=== PATIENT | female | born 1940 | race Caucasian/White ===

== ENCOUNTER → 2016-11-23 | Outpatient (CLI) | payer MEDICARE, OTHER ==
[~2016-11-23] MED LIST: ALBUTEROL INHALER INH; AMBI5TAB OR; ARIM1TAB4 PO; ARIMIDEX PO; ASPI81TA45 OR; BACL10TA2 OR; BACT2OIN2 TOP; CALCTAB68 PO; CARB10TAXR OR; CELE100C OR; CELE100C PO; COGE1INJ PO; DEPA250T2 OR; DEPA500T2 PO; ENAB7.5T PO; ENABLEX PO; MULTIVIT; ONETAB35 PO; REST0.05 OU; RISP0.5T3 PO; RISP3TAB16 OR; SIMV20TA2 PO; SIMV40TA2 OR; SYNT50TA OR; SYNT50TA PO; TRAZ50TA OR; TYLE325T5 PO; ZOCO40TA OR; lotrimin TOP; restasis OU
--- NOTE | 2016-11-23 13:33 | REPMRS ---
Patient History The patient states she has not had a clinical breast exam in over a year. Patient is postmenopausal and has history of breast cancer at age 66. Family history of breast cancer in sister at age 50 or over. Radiation therapy of the left breast, 2006. Digital Mammo Screening Bilat: November 23, 2016 - Exam #: [id number] Bilateral CC and MLO view(s) were taken. Technologist: Anna Kingsley, Technologist Prior study comparison: November 18, 2015, bilateral digital mammo screening bilat performed at [facility]. November 19, 2014, digital mammo diagnostic bilateral performed at [facility]. November 26, 2013, bilateral digital mammo screening bilat performed at [facility]. FINDINGS: There are scattered fibroglandular densities. There has been no change in the appearance of the mammogram from the prior studies. There are stable post treatment changes in the left breast. There is a mild amount of scattered fibroglandular density which is fairly symmetric. There is no interval development of dominant mass, architectural distortion, or clustered microcalcification suggestive of malignancy. ASSESSMENT: BI-RADS/ACR category 1 mammogram. Negative. Recommendation Routine screening mammogram in 1 year (for women over age 40). This mammogram was interpreted with the aid of an FDA-approved computer-aided dectection system. Electronically Signed By: Hair Purvis MD 11/23/16 [id number]
== END ==
LOC: M RAD 10:26
PROVIDERS: ATTEND Family Medicine
DX: Z12.31 Encounter for screening mammogram for malignant neoplasm of breast (principal)

== ENCOUNTER → 2017-01-17 | Outpatient (REF) | payer MEDICARE, OTHER ==
[2017-01-17 12:15] LABS: MEAN CORPUSCULAR HEMOGLOBIN 31.9 pg (27.0-33.0); MEAN CORPUSCULAR HGB CONC 33.7 g/dl (32.0-36.5); MEAN CORPUSCULAR VOLUME 94.5 fl (80.0-96.0); RED CELL DISTRIBUTION WIDTH 13.1 % (11.5-14.5); WHITE BLOOD COUNT 6.5 K/mm3 (4.0-10.0)
[2017-01-17 12:30] LABS: ALBUMIN 3.1 GM/DL (3.2-5.2); ALBUMIN/GLOBULIN RATIO 0.91 (1.00-1.93); ALKALINE PHOSPHATASE 57 U/L (45-117); ALT/SGPT 30 U/L (12-78); ANION GAP 9 MEQ/L (8-16); AST/SGOT 20 U/L (15-37); BILIRUBIN,TOTAL 0.3 MG/DL (0.2-1.0); BLOOD UREA NITROGEN 13 MG/DL (7-18); CALCIUM LEVEL 8.4 MG/DL (8.8-10.2); CARBON DIOXIDE LEVEL 26 MEQ/L (21-32); CHLORIDE LEVEL 105 MEQ/L (98-107); CHOLESTEROL LEVEL 155 MG/DL (<200); CREATININE FOR GFR 0.68 MG/DL (0.55-1.02); FREE T4 1.25 NG/DL (0.76-1.46); GLOMERULAR FILTRATION RATE > 60.0 (>39); GLUCOSE, FASTING 124 MG/DL (83-110); POTASSIUM SERUM 4.1 MEQ/L (3.5-5.1); SODIUM LEVEL 140 MEQ/L (136-145); TOTAL PROTEIN 6.5 GM/DL (6.4-8.2); TRIGLYCERIDES LEVEL 144 MG/DL (<150)
== END ==
LOC: M LABDRAW1 11:42
PROVIDERS: ATTEND Family Medicine
DX: I67.89 Other cerebrovascular disease (principal); E78.2 Mixed hyperlipidemia; E03.9 Hypothyroidism, unspecified

== ENCOUNTER → 2017-01-25 | Outpatient (REF) | payer MEDICARE, OTHER | LOC: M SFHCADAM 15:38 | PROVIDERS: ATTEND Family Medicine | DX: K52.9 Noninfective gastroenteritis and colitis, unspecified (principal) | CPT/HCPCS: 86256; G0463 ==

== ENCOUNTER → 2017-12-05 | Outpatient (CLI) | payer MEDICARE, OTHER | LOC: M RAD 10:43 | DX: Z12.31 Encounter for screening mammogram for malignant neoplasm of breast (principal) | CPT/HCPCS: 77067 ==

== ENCOUNTER → 2018-07-31 | Outpatient (REF) | payer MEDICARE, OTHER ==
[2018-07-31 10:36] LABS: ANION GAP 8 MEQ/L (8-16); BLOOD UREA NITROGEN 10 MG/DL (7-18); CALCIUM LEVEL 9.3 MG/DL (8.8-10.2); CARBON DIOXIDE LEVEL 28 MEQ/L (21-32); CHLORIDE LEVEL 105 MEQ/L (98-107); CREATININE FOR GFR 0.74 MG/DL (0.55-1.30); GLOMERULAR FILTRATION RATE > 60.0 (>39); GLUCOSE, FASTING 170 MG/DL (70-100); POTASSIUM SERUM 4.2 MEQ/L (3.5-5.1); SODIUM LEVEL 141 MEQ/L (136-145)
[2018-07-31 10:50] LABS: ESTIMATED AVERAGE GLUCOSE 174 MG/DL (60-110); HEMOGLOBIN A1c 7.7 %
== END ==
LOC: M LABDRAW1 09:36
DX: R73.03 Prediabetes (principal)

== ENCOUNTER → 2018-07-31 | Outpatient (REF) | payer MEDICARE, OTHER ==
[2018-07-31 10:49] LABS: ALBUMIN 3.1 GM/DL (3.2-5.2); ALBUMIN/GLOBULIN RATIO 0.84 (1.00-1.93); ALKALINE PHOSPHATASE 57 U/L (45-117); ALT/SGPT 35 U/L (12-78); AST/SGOT 21 U/L (7-37); BILIRUBIN,DIRECT 0.1 MG/DL (0.0-0.2); BILIRUBIN,TOTAL 0.4 MG/DL (0.2-1.0); TOTAL PROTEIN 6.8 GM/DL (6.4-8.2); VALPROIC ACID (DEPAKOTE) 67.5 UG/ML (50.0-100.0)
== END ==
LOC: M LABDRAW1 09:35
DX: Z51.81 Encounter for therapeutic drug level monitoring (principal); Z79.899 Other long term (current) drug therapy; R73.03 Prediabetes
CPT/HCPCS: 80164

== ENCOUNTER → 2018-10-30 | Outpatient (REF) | payer MEDICARE, OTHER ==
[~2018-10-30] MED LIST changes: -ARIM1TAB4 PO; +ARIM1TAB5 PO; +BACT2OIN10 TOP; -BACT2OIN2 TOP
[2018-10-30 14:00] LABS: HEMOGLOBIN A1c 8.5 %
[2018-10-30 14:30] LABS: ALBUMIN 3.2 GM/DL (3.2-5.2); ALT/SGPT 30 U/L (12-78); BILIRUBIN,TOTAL 0.4 MG/DL (0.2-1.0); BLOOD UREA NITROGEN 14 MG/DL (7-18); CALCIUM LEVEL 8.8 MG/DL (8.8-10.2); CARBON DIOXIDE LEVEL 24 MEQ/L (21-32); CHLORIDE LEVEL 105 MEQ/L (98-107); CHOLESTEROL LEVEL 159 MG/DL (<200); CHOLESTEROL RISK RATIO 2.839 (<5); CREATININE FOR GFR 0.72 MG/DL (0.55-1.30); GLOMERULAR FILTRATION RATE > 60.0 (>39); GLUCOSE, FASTING 174 MG/DL (70-100); HDL CHOLESTEROL 56 MG/DL (>40); LDL CHOLESTEROL 73 MG/DL (<100); NON-HDL-C 103 MG/DL; POTASSIUM SERUM 4.6 MEQ/L (3.5-5.1); SODIUM LEVEL 141 MEQ/L (136-145); TOTAL PROTEIN 6.9 GM/DL (6.4-8.2); TRIGLYCERIDES LEVEL 150 MG/DL (<150)
== END ==
LOC: M LABDRAW1 12:48
PROVIDERS: ATTEND Family Medicine
DX: E11.9 Type 2 diabetes mellitus without complications (principal); E78.2 Mixed hyperlipidemia

== ENCOUNTER → 2018-10-31 | Outpatient (REF) | payer MEDICARE, OTHER ==
[2018-10-31 13:37] LABS: CREATININE, URINE 50.8 MG/DL; MALB URINE SIEMENS 6.4 MG/L; MAU/CREAT RATIO 12.5 MCG/MG (0.0-30.0)
== END ==
LOC: M LABDRAW1 08:59
PROVIDERS: ATTEND Family Medicine
DX: E11.9 Type 2 diabetes mellitus without complications (principal); E78.2 Mixed hyperlipidemia

== ENCOUNTER → 2018-11-06 | Outpatient (CLI) | payer MEDICARE, OTHER ==
[~2018-11-06] MED LIST changes: -CARB10TAXR OR; +TEGR100T3 OR
--- NOTE | 2018-11-06 10:53 | REP ---
Clinical: Right knee pain. Technique: AP, lateral, bilateral oblique and sunrise views of the right knee. Findings: Mild age-related degenerative changes include subtle increase sclerosis along the tibial plateau with very small lateral osteophyte and associated minimal tibiofemoral joint space narrowing. No acute fracture dislocation. No effusion. 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 Electronically Signed by Kristopher Ferrer MD 11/06/2018 10:45 A
== END ==
LOC: M ADAMS 10:06
PROVIDERS: ATTEND Family Medicine
DX: M17.11 Unilateral primary osteoarthritis, right knee (principal); M25.761 Osteophyte, right knee; M25.561 Pain in right knee
CPT/HCPCS: 73564; G0463

== ENCOUNTER → 2018-11-27 | Outpatient (REF) | payer MEDICARE, OTHER ==
[~2018-11-27] MED LIST changes: +CARB10TAXR OR; -TEGR100T3 OR
== END ==
LOC: M LAB REF 10:03
PROVIDERS: ATTEND Physician Assistant Medical
DX: R19.7 Diarrhea, unspecified (principal)

== ENCOUNTER → 2018-11-27 | Outpatient (REF) | payer MEDICARE, OTHER ==
[2018-11-27 20:08] LABS: BASO # 0.1 10^3/uL (0.0-0.2); BASO % 0.6 % (0.0-1.0); EOS # 0.1 10^3/uL (0.0-0.50); EOS % 0.8 % (0.0-3.0); HEMATOCRIT 44.9 % (36.0-47.0); HEMOGLOBIN 14.9 g/dl (12.0-15.5); LYMPH # 3.3 10^3/uL (1.5-4.5); LYMPH % 37.4 % (24.0-44.0); MEAN CORPUSCULAR HEMOGLOBIN 31.8 pg (27.0-33.0); MEAN CORPUSCULAR HGB CONC 33.2 g/dl (32.0-36.5); MEAN CORPUSCULAR VOLUME 95.7 fl (80.0-96.0); MONO # 0.8 10^3/uL (0.0-0.8); MONO % 8.9 % (0.0-5.0); NEUTROPHILS # 4.5 10^3/uL (1.8-7.7); NEUTROPHILS % 52.1 % (36.0-66.0); PLATELET COUNT, AUTOMATED 224 10^3/uL (150-450); RED BLOOD COUNT 4.69 10^6/uL (4.00-5.40); WHITE BLOOD COUNT 8.7 10^3/uL (4.0-10.0)
[2018-11-27 20:15] LABS: ALBUMIN 3.6 GM/DL (3.2-5.2); ALT/SGPT 45 U/L (12-78); AMYLASE 87 U/L (25-115); BILIRUBIN,TOTAL 0.4 MG/DL (0.2-1.0); BLOOD UREA NITROGEN 11 MG/DL (7-18); CALCIUM LEVEL 9.8 MG/DL (8.8-10.2); CARBON DIOXIDE LEVEL 29 MEQ/L (21-32); CHLORIDE LEVEL 101 MEQ/L (98-107); CREATININE FOR GFR 0.73 MG/DL (0.55-1.30); GLOMERULAR FILTRATION RATE > 60.0 (>39); GLUCOSE, FASTING 118 MG/DL (70-100); LIPASE 223 U/L (73-393); POTASSIUM SERUM 3.8 MEQ/L (3.5-5.1); SODIUM LEVEL 139 MEQ/L (136-145); TOTAL PROTEIN 7.6 GM/DL (6.4-8.2)
== END ==
LOC: M LAB REF 19:12 → M LABDRWAD 19:12
PROVIDERS: ATTEND Physician Assistant Medical
DX: R19.7 Diarrhea, unspecified (principal)

== ENCOUNTER → 2018-12-12 | Outpatient (CLI) | payer MEDICARE, OTHER ==
[~2018-12-12] MED LIST changes: -CARB10TAXR OR; +TEGR100T3 OR
--- NOTE | 2018-12-12 11:11 | REPMRS ---
Patient History The patient states she has not had a clinical breast exam in over a year. Family history of breast cancer at age 50 or over in sister. Radiation therapy of the left breast, 2007. 3D TOMOSYNTHESIS WAS PERFORMED. Digital Mammo Screening Bilat: December 12, 2018 - Exam #: [id number] Bilateral CC and MLO view(s) were taken. Technologist: Amanda Barroso, Technologist Prior study comparison: December 05, 2017, bilateral digital mammo screening bilat performed at [facility]. November 23, 2016, bilateral digital mammo screening bilat performed at [facility]. FINDINGS: There are scattered fibroglandular densities. There has been no change in the appearance of the mammogram from the prior studies. There is a mild amount of residual fibroglandular tissue which is fairly symmetric. There is no interval development of dominant mass, architectural distortion, or clustered microcalcification suggestive of malignancy. Assessment: BI-RADS/ACR category 1 mammogram. Negative Mammogram. Recommendation Routine screening mammogram in 1 year (for women over age 40). This mammogram was interpreted with the aid of an FDA-approved computer-aided dectection system. Electronically Signed By: Warren Avendano MD 12/12/18 [id number]
== END ==
LOC: M RAD 09:18
PROVIDERS: ATTEND Family Medicine
DX: Z12.31 Encounter for screening mammogram for malignant neoplasm of breast (principal); Z92.3 Personal history of irradiation; Z80.3 Family history of malignant neoplasm of breast

== ENCOUNTER → 2019-01-16 | Outpatient (REF) | payer MEDICARE, OTHER | LOC: M LABDRAW1 11:58 | PROVIDERS: ATTEND Psychiatry & Neurology Psychiatry | DX: Z79.899 Other long term (current) drug therapy (principal) ==

== ENCOUNTER → 2019-01-16 | Outpatient (REF) | payer MEDICARE, OTHER ==
[2019-01-16 13:05] LABS: BLOOD UREA NITROGEN 12 MG/DL (7-18); CALCIUM LEVEL 9.3 MG/DL (8.8-10.2); CARBON DIOXIDE LEVEL 27 MEQ/L (21-32); CHLORIDE LEVEL 106 MEQ/L (98-107); CREATININE FOR GFR 0.76 MG/DL (0.55-1.30); GLOMERULAR FILTRATION RATE > 60.0 (>39); GLUCOSE, FASTING 139 MG/DL (70-100); POTASSIUM SERUM 4.2 MEQ/L (3.5-5.1); SODIUM LEVEL 142 MEQ/L (136-145)
[2019-01-16 15:54] LABS: HEMOGLOBIN A1c 7.3 %
== END ==
LOC: M LABDRAW1 11:57
PROVIDERS: ATTEND Family Medicine
DX: E11.9 Type 2 diabetes mellitus without complications (principal)

== ENCOUNTER → 2019-01-22 | Outpatient (REF) | payer MEDICARE, OTHER ==
[2019-01-22 20:20] LABS: ALBUMIN 3.6 GM/DL (3.2-5.2); ALT/SGPT 36 U/L (12-78); BILIRUBIN,TOTAL 0.4 MG/DL (0.2-1.0); BLOOD UREA NITROGEN 7 MG/DL (7-18); C REACTIVE PROTEIN QUANTITATIV 0.51 MG/DL (0.00-0.30); CALCIUM LEVEL 9.6 MG/DL (8.8-10.2); CARBON DIOXIDE LEVEL 30 MEQ/L (21-32); CHLORIDE LEVEL 103 MEQ/L (98-107); CREATININE FOR GFR 0.66 MG/DL (0.55-1.30); GLOMERULAR FILTRATION RATE > 60.0 (>39); GLUCOSE, FASTING 94 MG/DL (70-100); POTASSIUM SERUM 4.1 MEQ/L (3.5-5.1); SODIUM LEVEL 139 MEQ/L (136-145); TOTAL PROTEIN 8.1 GM/DL (6.4-8.2)
[2019-01-22 20:24] LABS: HEMATOCRIT 47.8 % (36.0-47.0); HEMOGLOBIN 15.5 g/dl (12.0-15.5); MEAN CORPUSCULAR HEMOGLOBIN 31.1 pg (27.0-33.0); MEAN CORPUSCULAR HGB CONC 32.4 g/dl (32.0-36.5); MEAN CORPUSCULAR VOLUME 95.8 fl (80.0-96.0); PLATELET COUNT, AUTOMATED 233 10^3/uL (150-450); RED BLOOD COUNT 4.99 10^6/uL (4.00-5.40); WHITE BLOOD COUNT 7.9 10^3/uL (4.0-10.0)
== END ==
LOC: M SFHCADAM 14:11
PROVIDERS: ATTEND Family Medicine
DX: K52.9 Noninfective gastroenteritis and colitis, unspecified (principal); R63.4 Abnormal weight loss
CPT/HCPCS: 80053; 85027; 86140; 86255; G0463

== ENCOUNTER 2019-02-28 07:01 | Day surgery (SDC) | payer MEDICARE, OTHER ==
[~2019-02-28] VITALS: Ht 165.1 cm; Wt 63.9 kg
[~2019-02-28 07:01] MED LIST changes: +CALCCAP4 PO; +DEPA1TAB3 PO; +LEVO50TA5 PO; +MINO100C80 PO; +NS 1,000 ML IV ONE; +REQU1TAB14 PO
[2019-02-28] MEDS ORDERED: LIDOCAINE 2% INJ 100 MG/5 ML SDV (FOR ANES.) As Ordered ONE (08:36)
[2019-02-28] MEDS ORDERED: PROPOFOL 500 MG/50 ML VIAL As Ordered ONE (08:36)
--- NOTE | 2019-02-28 08:58 | ROOR ---
Patient Name: Hilaria Raymundo Procedure Date: 02/28/2019 8:32 AM Date of : 1940 Age: 78 Room: [facility] Gender: Female Note Status: Finalized Procedure: Colonoscopy Indications: Change in bowel habits, Constipation, Chronic diarrhea Providers: Alexy MITCHELL MD Referring MD: Abner Augustin MD Requesting Provider: Medicines: Monitored Anesthesia Care Complications: No immediate complications. Procedure: Pre-Anesthesia Assessment: - The heart rate, respiratory rate, oxygen saturations, blood pressure, adequacy of pulmonary ventilation, and response to care were monitored throughout the procedure. The Colonoscope was introduced through the anus and advanced to 10 cm into the ileum. The colonoscopy was performed without difficulty. The patient tolerated the procedure well. The quality of the bowel preparation was good. Findings: The perianal exam findings include a perianal fungal rash. A localized area of mucosa in the ileocecal valve was mildly erythematous. This was biopsied with a cold forceps for histology. Multiple medium-mouthed diverticula were found in the sigmoid colon. Small Internal Hemorrhoids. The exam was otherwise without abnormality. Biopsies for histology were taken with a cold forceps for evaluation of microscopic colitis. Impression: - Perianal fungal rash found on perianal exam. - Erythematous mucosa at the last 1-2 cm of TI/ileocecal valve. Biopsied. - Diverticulosis in the sigmoid colon. - Small Internal Hemorrhoids. - The examination was otherwise normal. - Biopsies were taken with a cold forceps for evaluation of microscopic colitis. Recommendation: - Await pathology results. - Telephone endoscopist for pathology results in 2 weeks. - Clotrimazole/betamethasone cream to perianal area bid x 2 weeks - (the script was sent to your pharmacy on file) Alexy Mitchell MD Alexy MITCHELL MD 02/28/2019 8:57:54 AM Electronically signed by Alexy MITCHELL MD Number of Addenda: 0 Note Initiated On: 02/28/2019 8:32 AM Estimated Blood Loss: Estimated blood loss: none.
[2019-02-28 09:41] VITALS: BP 119/69
[2019-02-28] MEDS ORDERED: BUSP5TA PO (13:45)
[2019-02-28] MEDS ORDERED: METF500T4 PO (13:45)
[2019-02-28] MEDS ORDERED: CLOT1CRE71 TOP (13:46)
[2019-02-28] MEDS ORDERED: LEVO75TA4 PO (13:50)
[2019-02-28] MEDS ORDERED: RISP0.5T3 PO (13:50)
== END 2019-02-28 09:40 | disposition home or self-care (01) ==
LOC: M OPP 07:01
PROVIDERS: ATTEND Internal Medicine Gastroenterology
DX: B35.6 Tinea cruris (principal); K63.89 Other specified diseases of intestine; R19.4 Change in bowel habit; K52.9 Noninfective gastroenteritis and colitis, unspecified; K57.30 Diverticulosis of large intestine without perforation or abscess without bleeding; Z79.899 Other long term (current) drug therapy; Z88.8 Allergy status to other drugs, medicaments and biological substances; Z87.891 Personal history of nicotine dependence

== ENCOUNTER 2019-03-02 09:59 | Inpatient (IN) | payer MEDICARE, OTHER ==
[~2019-03-02] VITALS: Ht 152.4 cm; Wt 63.6 kg
[~2019-03-02 09:59] MED LIST changes: +BUSP5TA PO; +CLOT1CRE71 TOP; +LEVO75TA4 PO; +METF500T4 PO; -NS 1,000 ML IV ONE
[2019-03-02] MEDS ORDERED: ANAS1TAB2 PO (10:30)
[2019-03-02] MEDS ORDERED: SYNT50TA PO (10:30)
[2019-03-02] MEDS ORDERED: DIVA500T9 PO (10:30)
[2019-03-02 10:41] LABS: BASO # 0.1 10^3/uL (0.0-0.2); BASO % 0.5 % (0.0-1.0); EOS % 0.1 % (0.0-3.0); HEMATOCRIT 47.4 % (36.0-47.0); HEMOGLOBIN 15.9 g/dl (12.0-15.5); LYMPH # 1.9 10^3/uL (1.5-4.5); LYMPH % 13.5 % (24.0-44.0); MEAN CORPUSCULAR HEMOGLOBIN 31.4 pg (27.0-33.0); MEAN CORPUSCULAR HGB CONC 33.5 g/dl (32.0-36.5); MEAN CORPUSCULAR VOLUME 93.7 fl (80.0-96.0); MONO # 1.5 10^3/uL (0.0-0.8); MONO % 10.8 % (0.0-5.0); NEUTROPHILS # 10.3 10^3/uL (1.8-7.7); NEUTROPHILS % 74.8 % (36.0-66.0); PLATELET COUNT, AUTOMATED 210 10^3/uL (150-450); RED BLOOD COUNT 5.06 10^6/uL (4.00-5.40); WHITE BLOOD COUNT 13.8 10^3/uL (4.0-10.0)
[2019-03-02 11:04] LABS: ALBUMIN 3.1 GM/DL (3.2-5.2); ALT/SGPT 24 U/L (12-78); BILIRUBIN,DIRECT 0.2 MG/DL (0.0-0.2); BILIRUBIN,TOTAL 0.8 MG/DL (0.2-1.0); BLOOD UREA NITROGEN 7 MG/DL (7-18); CALCIUM LEVEL 9.4 MG/DL (8.8-10.2); CARBON DIOXIDE LEVEL 26 MEQ/L (21-32); CHLORIDE LEVEL 102 MEQ/L (98-107); CREATININE FOR GFR 0.67 MG/DL (0.55-1.30); GLOMERULAR FILTRATION RATE > 60.0 (>39); GLUCOSE, FASTING 148 MG/DL (70-100); LIPASE 97 U/L (73-393); POTASSIUM SERUM 3.3 MEQ/L (3.5-5.1); SODIUM LEVEL 137 MEQ/L (136-145); TOTAL PROTEIN 8.7 GM/DL (6.4-8.2)
[2019-03-02 11:25] LABS: CPK CREATINE PHOSPHOKINASE 104 U/L (26-192); MB/CK RELATIVE INDEX 0.96 (< OR =4); TROPONIN I < 0.02 NG/ML (< 0.10)
--- NOTE | 2019-03-02 11:34 | REP ---
Right wrist four views: There is soft tissue edema over the dorsum. There is no fracture or dislocation. No calcifications or foreign bodies. 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 Electronically Signed by Warren Francis MD 03/02/2019 11:26 A
[2019-03-02 11:38] LABS: MAGNESIUM LEVEL 2.2 MG/DL (1.8-2.4); PHOSPHORUS LEVEL 1.9 MG/DL (2.5-4.9)
[2019-03-02] MEDS ORDERED: NS 500 ML IV ONE (11:45)
--- NOTE | 2019-03-02 11:46 | REP ---
A PA and lateral chest: Comparison is 07/14/2011. There is a stable granuloma inferiorly in the right lung. Lung ruiz otherwise clear. Cardiac size is normal. The jeffery, mediastinum, skeletal structures are unremarkable. Impression: No acute cardiopulmonary findings. Stable right lung granuloma. Electronically Signed by Warren Francis MD 03/02/2019 11:37 A
[2019-03-02] MEDS ORDERED: POTASSIUM CHLORIDE 10 MEQ SR TABLET PO ONE (12:00)
[2019-03-02] MEDS ORDERED: GLUCAGON FOR INJ 1 MG VIAL (J1610) SC PRN (15:00)
[2019-03-02] MEDS ORDERED: ONDANSETRON 4MG/2ML VIAL (J2405) IV PRN (15:00)
[2019-03-02] MEDS ORDERED: DEXTROSE 50% 50 ML SYRINGE IV PRN (15:00)
[2019-03-02] MEDS ORDERED: GLUCOSE 4 GM CHEW TABLET PO PRN (15:00)
[2019-03-02 16:00] VITALS: BP 143/76
[2019-03-02] MEDS: HumaLOG INSULIN (NovoLOG) PER UNIT SC SCH ×2 (17:52→21:00)
[2019-03-02] MEDS: DIVALPROEX 500MG *ER* TAB PO SCH (17:53)
[2019-03-02] MEDS: ENOXAPARIN 40 MG/0.4 ML SYRINGE (J1650) SC SCH (17:53)
--- NOTE | 2019-03-02 18:37 | HPEPDOC ---
General Date of Admission Mar 02, 2019 at 14:50 Date of Service: Mar 02, 2019 Primary Care Physician: Abner Augustin MD Chief Complaint The patient is a 78-year-old female admitted with a reason for visit of Diarrhea Hypokalemia Unable To Ambulate. Source: Patient, Family Exam Limitations: Hard of hearing, Mild cognitive slowing Timing/Duration: Week(s) (2 months) Severity: Moderate Associated Symptoms: Weakness History of Present Illness This is a 78-year-old female who is a moderate historian; her daughter is here to assist. She apparently has had diarrhea for 2-1/2 months. It is generally described as loose stools. It is unaccompanied by blood. She's had decreased appetite but no vomiting. She has no changes to her bladder habits. She has been becoming increasingly weak where she is nonambulatory. She sustained a fall in the bathroom at home this week. There was no residual acute injury aside from a sprained left ankle. The patient has not had any treatment meds such as Lomotil or Imodium. She has not been on any antibiotic therapy prior to or to treat the diarrhea. The family is unsure whether she has had any lab testing. The patient did undergo evaluation by colonoscopy this week with no acute findings. Potential exposure includes well water; there is water they obtain from a spring that they go collect in their own containers. Other family members do not have the diarrhea. The family and the patient are also considering metformin as a causative agent as it seems she has had diarrhea since starting on this medication. Home Medications Scheduled Anastrozole (Anastrozole) 1 Mg Tablet, 1 TAB PO DAILY, (Reported) Calcium Carbonate/Vitamin D3 (Calcium 600 + Vit D 400 Softgl) 1 Each Capsule, 1 CAP PO BID, (Reported) Cyclosporine (Restasis) 0.05 % Emu, 1 DROP OU BID, (Reported) Darifenacin Hydrobromide (Enablex) 7.5 Mg Tab, 7.5 MG PO DAILY, (Reported) Divalproex Sodium (Divalproex Sodium ER) 500 Mg Tab.er.24h, 500 MG PO DAILY, (Reported) Folic Acid/Multivit,Iron,[place] (One Daily For Women Tablet) 1 Tab Tab, 1 TAB PO DAILY, (Reported) Levothyroxine Sodium (Synthroid) 50 Mcg Tablet, 50 MCG PO DAILY, (Reported) Metformin HCl (Metformin HCl ER) 500 Mg Tab.er.24h, 1,000 MG PO QPM, (Reported) WITH EVENING MEAL Risperidone (Risperidone) 0.5 Mg Tablet, 0.5 MG PO QHS, (Reported) Simvastatin (Simvastatin) 20 Mg Tab, 20 MG PO QHS, (Reported) Allergies Coded Allergies: tolterodine (Verified Allergy, Unknown, rash, 02/26/19) propoxyphene (Verified Adverse Reaction, Mild, upset stomach, 02/26/19) Past Medical History Medical History Recent diagnosis of sro-dolrqkf-tlepsseyq diabetes mellitus, hypercholes terolemia, hypothyroidism, bipolar disorder, history of breast cancer treated with radiation, stress/urge incontinence Surgical History Skin grafts to forehead, left breast lumpectomy, hysterectomy Family History Patient reports paternal history of cirrhosis, maternal multigenerational history of breast cancer, there is also a brother with colon cancer and heart disease Social History * Smoker: former Smoker, quit greater than 1 year (patient quit smoking prior to 1989) Alcohol: Denies (he last drank alcohol in her 20s) Drugs: denies Recent Travel/Sick Contacts: Denies: Recent travel, Recent sick contacts Psychosocial History: Bipolar The patient is retired. A-FIB/CHADSVASC A-FIB History Current/History of A-Fib/PAF?: No Current PO Anticoag Therapy: No Review of Systems Other systems Review of 10 systems is otherwise negative except as stated in the brief presentation. The patient was an incomplete historian; most of the time she would drift off to another topic rather than answering questions. Physical Examination General Exam: Positive: Cooperative, No Acute Distress Eye Exam: Positive: PERRLA, Conjunctiva & lids normal, EOMI ENT Exam: Positive: Atraumatic, Mucous membr. moist/pink, Pharynx Normal, Tongue Midline, Other ENT (moderately good dentition) Neck Exam: Positive: Supple; Negative: JVD, thyromegaly, +2 carotid pulse wo bruit, Lymphadenopathy, Other Chest Exam: Positive: Clear to auscultation, Normal air movement; Negative: Rales, Rhonchi, Wheezing, Diminished, Other Heart Exam: Positive: Rate Normal, Regular Rhythm Abdomen Exam: Positive: BS Hyperactive, Soft; Negative: BS Hypoactive, Tenderness, Hepatospenomegaly, Mass, Hernia, Other Extremity Exam: Positive: Normal pulses, Swelling (to Left ankle, bruising and swelling to right wrist) Skin Exam: Positive: Nl turgor and temperature Neuro Exam: Positive: Cranial Nerves 3-12 NL Psych Exam: Positive: Other (patient did demonstrate some memory deficit) Vital Signs Vital Signs Date Time Temp Pulse Resp B/P (MAP) Pulse Ox O2 Delivery O2 Flow Rate FiO2 03/02/19 16:00 20 03/02/19 15:30 99.2 82 132/71 (91) 93 03/02/19 10:15 Room Air Laboratory Data Labs 24H Laboratory Tests 2 03/02/19 10:22: Immature Granulocyte % (Auto) 0.3, White Blood Count 13.8H, Red Blood Count 5.06, Hemoglobin 15.9H, Hematocrit 47.4H, Mean Corpuscular Volume 93.7, Mean Corpuscular Hemoglobin 31.4, Mean Corpuscular Hemoglobin Concent 33.5, Red Cell Distribution Width 13.2, Platelet Count 210, Neutrophils (%) (Auto) 74.8H, Lymphocytes (%) (Auto) 13.5L, Monocytes (%) (Auto) 10.8H, Eosinophils (%) (Auto) 0.1, Basophils (%) (Auto) 0.5, Neutrophils # (Auto) 10.3H, Lymphocytes # (Auto) 1.9, Monocytes # (Auto) 1.5H, Eosinophils # (Auto) 0.0, Basophils # (Auto) 0.1, Nucleated Red Blood Cells % (auto) 0.0, Anion Gap 9, Glomerular Filtration Rate > 60.0, Calcium Level 9.4, Phosphorus Level 1.9L, Magnesium Level 2.2, Aspartate Amino Transf (AST/SGOT) 16, Alanine Aminotransferase (ALT/SGPT) 24, Alkaline Phosphatase 68, Total Bilirubin 0.8, Direct Bilirubin 0.2, Total Creatine Kinase 104, Creatine Kinase MB 1.0, Creatine Kinase MB Relative Index 0.96, Troponin I < 0.02, Total Protein 8.7H, Albumin 3.1L, Albumin/Globulin Ratio 0.55L, Lipase 97, Thyroid Stimulating Hormone (TSH) 1.780, Free Thyroxine 1.20 03/02/19 16:06: Bedside Glucose (Misc Panel) 123H CBC/BMP Laboratory Tests 03/02/19 10:22 Red Blood Count 5.06, Mean Corpuscular Volume 93.7, Mean Corpuscular Hemoglobin 31.4, Mean Corpuscular Hemoglobin Concent 33.5, Red Cell Distribution Width 13.2, Neutrophils (%) (Auto) 74.8 H, Lymphocytes (%) (Auto) 13.5 L, Monocytes (%) (Auto) 10.8 H, Eosinophils (%) (Auto) 0.1, Basophils (%) (Auto) 0.5, Neutrophils # (Auto) 10.3 H, Lymphocytes # (Auto) 1.9, Monocytes # (Auto) 1.5 H, Eosinophils # (Auto) 0.0, Basophils # (Auto) 0.1 Problems (1) Diarrhea Status: Acute Plan / VTE VTE Prophylaxis Ordered?: Yes Plan Plan Plans are to give this patient some IV hydration. We will obtain x-ray stool studies as possible as we do not know what has been done: Ova and parasites, culture for salmonella, Campylobacter, Shigella, microsporidia, C. difficile PCR. If her stool studies are negative for C. difficile, we can start making use of agents such as Lomotil or Imodium to decrease her stool frequency. We are holding her metformin as this may be contributory or causative. We will manage her blood sugars with sliding scale insulin instead. Disposition The patient is stable for the [facility] floor. We anticipate her length of stay to be treated into meningitis and so she is inpatient status. Given her weakness, she'll need evaluation by physical and occupational therapy services as she may require placement after discharge. IVF: Initiate Diet: Continue Current Activity: Continue Current (patient is not ambulatory without assistance) Therapy: PT, OT Medications: Replete Electrolytes IV, Other Med: (sliding scale insulin) Diagnostics: Repeat Labs in AM Anticipated Discharge: Half-Way DEBBIE JENKINS MD Mar 02, 2019 18:37
[2019-03-02] MEDS: SIMVASTATIN 20 MG TAB PO SCH (21:27)
[2019-03-02] MEDS: FAMOTIDINE 20 MG TAB PO SCH (21:27)
[2019-03-02 22:00] VITALS: BP 162/98
[2019-03-03] MEDS: LEVOTHYROXINE 50MCG TABLET (0.05MG) PO SCH (05:37)
[2019-03-03 06:00] VITALS: BP 147/84
[2019-03-03 06:08] LABS: HEMOGLOBIN A1c 6.8 %
[2019-03-03 06:28] LABS: ALBUMIN 2.3 GM/DL (3.2-5.2); ALT/SGPT 23 U/L (12-78); BILIRUBIN,TOTAL 0.7 MG/DL (0.2-1.0); BLOOD UREA NITROGEN 9 MG/DL (7-18); CALCIUM LEVEL 8.5 MG/DL (8.8-10.2); CARBON DIOXIDE LEVEL 23 MEQ/L (21-32); CHLORIDE LEVEL 105 MEQ/L (98-107); GLOMERULAR FILTRATION RATE > 60.0 (>39); GLUCOSE, FASTING 130 MG/DL (70-100); MAGNESIUM LEVEL 2.2 MG/DL (1.8-2.4); POTASSIUM SERUM 3.8 MEQ/L (3.5-5.1); SODIUM LEVEL 137 MEQ/L (136-145); TOTAL PROTEIN 7.1 GM/DL (6.4-8.2)
--- NOTE | 2019-03-03 06:57 | ECGEPIP ---
[facility] - ED Test Date: 2019-03-02 Pat Name: DEXTER ORDONEZ Department: Room: - Gender: Female Occupational Health Manager: VIKRAM : 1940 Requested By: ЮЛИЯ Garcia Order Number: [id number] Reading MD: Todd Wong Measurements Intervals Weaver Rate: 81 P: 52 TX: 151 QRS: QRSD: 92 T: QT: 380 QTc: 444 Interpretive Statements SINUS RHYTHM MODERATE VOLTAGE CRITERIA FOR LVH, CONSIDER NORMAL VARIANT NSTTW ABNORMALITIES NO PRIORS FOR COMPARISON Electronically Signed on 03-03-2019 6:57:51 EDT by Todd Wong
[2019-03-03] MEDS: DIVALPROEX 500MG *ER* TAB PO SCH (08:36)
[2019-03-03] MEDS: FAMOTIDINE 20 MG TAB PO SCH ×2 (08:37→20:51)
[2019-03-03] MEDS: HumaLOG INSULIN (NovoLOG) PER UNIT SC SCH ×4 (08:37→20:47)
[2019-03-03 14:00] VITALS: BP 138/82
--- NOTE | 2019-03-03 16:24 | REP ---
Right hand four views: There is demineralization. There is DIP and PIP osteoarthritis. 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 There is soft tissue edema dorsally. There is no fracture or dislocation. Impression: Demineralization and osteoarthritis. Soft tissue edema dorsally. No fracture or dislocation. Electronically Signed by Warren Francis MD 03/03/2019 04:16 P
[2019-03-03] MEDS: ENOXAPARIN 40 MG/0.4 ML SYRINGE (J1650) SC SCH (16:42)
[2019-03-03] MEDS ORDERED: BUSP5TA PO (19:43)
[2019-03-03] MEDS ORDERED: ONETAB35 PO (19:43)
--- NOTE | 2019-03-03 20:43 | IPNPDOC ---
Subjective Date Seen The patient was seen on 03/03/19. Subjective Chief Complaint/HPI When asked what she came to the hospital for, she stated that her R hand and L ankle hurt; did not complain about diarrhea until I specifically questioned her about it. She had a hard time saying which part of her R hand hurt the most. Nursing noted that it took a lot of effort to get her to a bedside chair. Constitutional: Denies: Chills, Fever Pulmonary: Denies: Dyspnea, Cough Gastrointestinal: Reports: Diarrhea; Denies: Nausea, Vomiting, Abdominal Pain, Constipation, Melena, Hematochezia Musculoskeletal: Reports: Hand Pain, Foot Pain Objective Physical Examination General Exam: Positive: Cooperative, No Acute Distress Eye Exam: Positive: PERRLA, Conjunctiva & lids normal, EOMI ENT Exam: Positive: Atraumatic, Mucous membr. moist/pink, Pharynx Normal, To ngue Midline, Other ENT (moderately good dentition) Neck Exam: Positive: Supple; Negative: JVD, thyromegaly, +2 carotid pulse wo bruit, Lymphadenopathy, Other Chest Exam: Positive: Clear to auscultation, Normal air movement; Negative: Rales, Rhonchi, Wheezing, Diminished, Other Heart Exam: Positive: Rate Normal, Regular Rhythm Abdomen Exam: Positive: BS Hyperactive, Soft; Negative: BS Hypoactive, Tenderness, Hepatospenomegaly, Mass, Hernia, Other Extremity Exam: Positive: Normal pulses, Swelling (to Left ankle, bruising and swelling to right wrist) Skin Exam: Positive: Nl turgor and temperature Neuro Exam: Positive: Cranial Nerves 3-12 NL Psych Exam: Positive: Other (patient did demonstrate some memory deficit) Assessment /Plan Problems (1) Diarrhea Status: Acute Problem Text: Diarrhea has been chronic. Colonoscopy 02/28 with Paula, path showed only mild vascular congestion in the terminal ileum. Stool studies or dered, though since admission only 1 BM is documented, and that was a "smear." (2) Sprain and strain Problem Text: X rays ordered of R hand (R wrist ones already ordered.) Already has had L foot imaged. (3) History of recent fall Problem Text: PT ordered to eval and treat. It sounds as though the fall occur red while she was going to and from the bathroom while prepping for colonoscopy. Plan/VTE VTE Prophylaxis Ordered?: Yes Plan IVF: Initiate Diet: Continue Current Activity: Continue Current (patient is not ambulatory without assistance) Therapy: PT, OT Medications: Replete Electrolytes IV, Other Med: (sliding scale insulin) Diagnostics: Repeat Labs in AM Anticipated Discharge: [facility], I&O, 24H, [place] Vital Signs/I&O Vital Signs Date Time Temp Pulse Resp B/P (MAP) Pulse Ox O2 Delivery O2 Flow Rate FiO2 03/03/19 14:00 97.7 86 18 138/82 (100) 94 03/02/19 10:15 Room Air I&O- Last 24 Hours up to 6 AM 03/03/19 06:00 Intake Total 600 ml Output Total 0 ml Balance 600 ml Laboratory Data 24H LABS Laboratory Tests 2 03/02/19 21:00: Bedside Glucose (Misc Panel) 221H 03/03/19 05:27: Anion Gap 9, Glomerular Filtration Rate > 60.0, Estimated Mean Plasma Glucose 148H, Hemoglobin A1c 6.8, Blood Urea Nitrogen 9, Creatinine 0.50L, Sodium Level 137, Potassium Level 3.8, Chloride Level 105, Carbon Dioxide Level 23, Calcium Level 8.5L, Aspartate Amino Transf (AST/SGOT) 17, Alanine Aminotransferase (ALT/SGPT) 23, Alkaline Phosphatase 63, Total Bilirubin 0.7, Total Protein 7.1, Albumin 2.3#L, Magnesium Level 2.2, Albumin/Globulin Ratio 0.48L 03/03/19 11:30: Bedside Glucose (Misc Panel) 207H 03/03/19 16:27: Bedside Glucose (Misc Panel) 143H CBC/BMP Laboratory Tests 03/03/19 05:27 Calcium Level 8.5 L, Aspartate Amino Transf (AST/SGOT) 17, Alanine Aminotransferase (ALT/SGPT) 23, Alkaline Phosphatase 63, Total Bilirubin 0.7, Total Protein 7.1, Albumin 2.3 #L MO ECHEVERRIA DO Mar 03, 2019 20:43
[2019-03-03] MEDS: SIMVASTATIN 20 MG TAB PO SCH (20:51)
[2019-03-03] MEDS: ACETAMINOPHEN TAB 650MG DOSE (2X325MG) PO PRN (20:52)
[2019-03-03 22:00] VITALS: BP 150/80
[2019-03-04 06:00] VITALS: BP 128/74
[2019-03-04] MEDS: LEVOTHYROXINE 50MCG TABLET (0.05MG) PO SCH (06:11)
[2019-03-04] MEDS: FAMOTIDINE 20 MG TAB PO SCH ×2 (08:42→20:05)
[2019-03-04] MEDS: DIVALPROEX 500MG *ER* TAB PO SCH (08:42)
[2019-03-04] MEDS: HumaLOG INSULIN (NovoLOG) PER UNIT SC SCH ×4 (08:42→21:00)
--- NOTE | 2019-03-04 09:07 | IPNPDOC ---
Subjective Date Seen The patient was seen on 03/04/19. Subjective Chief Complaint/HPI FALL, DIARRHEA, ANKLE PAIN Events since last encounter patient unsafe per PT. Showing progressive weakness. When discussing events that lead up to her hospitalization patient states " I think I fell." c/o left ankle and irght hand pain from fall. no further episodes of diarrhea noted. Constitutional: Denies: Chills, Fever, Night Sweats Pulmonary: Denies: Dyspnea, Cough Gastrointestinal: Denies: Nausea, Vomiting, Abdominal Pain, Diarrhea, Constipation Genitourinary: Denies: Dysuria, Frequency, Incontinence, Retention Objective Physical Examination General Exam: Positive: Cooperative, No Acute Distress Eye Exam: Positive: PERRLA, Conjunctiva & lids normal, EOMI ENT Exam: Positive: Atraumatic, Mucous membr. moist/pink, Pharynx Normal, Tongue Midline, Other ENT (moderately good dentition) Neck Exam: Positive: Supple; Negative: JVD, thyromegaly, +2 carotid pulse wo bruit, Lymphadenopathy, Other Chest Exam: Positive: Clear to auscultation, Normal air movement; Negative: Rales, Rhonchi, Wheezing, Diminished, Other Heart Exam: Positive: Rate Normal, Regular Rhythm Abdomen Exam: Positive: BS Hyperactive, Soft; Negative: BS Hypoactive, Tenderness, Hepatospenomegaly, Mass, Hernia, Other Extremity Exam: Positive: Normal pulses, Swelling (to Left ankle, bruising and swelling to right wrist) Skin Exam: Positive: Nl turgor and temperature Neuro Exam: Positive: Cranial Nerves 3-12 NL Psych Exam: Positive: Other (patient did demonstrate some memory deficit. alert to person, place and time) Assessment /Plan Problems (1) Diarrhea Status: Acute Problem Text: 03/04/19: no further episodes since hospitalization Diarrhea has been chronic. Colonoscopy 02/28 with Paula, path showed only mild vascular congestion in the terminal ileum. Stool studies ordered, though since admission only 1 BM is documented, and that was a "smear. (2) Sprain and strain Problem Text: 03/04/19: imaging negative. PT wokring with patient for mobility and safety. X rays ordered of R hand (R wrist ones already ordered.) Already has had L foot imaged. (3) History of recent fall Problem Text: PT ordered to eval and treat. It sounds as though the fall occurred while she was going to and from the bathroom while prepping for colonoscopy. (4) Bipolar affective disorder Status: Chronic Problem Text: Follows with Dr. Aguero. On Depakote. will eval level. Plan/VTE VTE Prophylaxis Ordered?: Yes Plan IVF: Initiate Diet: Continue Current Activity: Continue Current (patient is not ambulatory without assistance) Therapy: PT, OT Medications: Replete Electrolytes IV, Other Med: (sliding scale insulin) Diagnostics: Repeat Labs in AM Anticipated Dis[facility] Shelter [facility] I&O[facility] Vital Signs/I&O Vital Signs Date Time Temp Pulse Resp B/P (MAP) Pulse Ox O2 Delivery O2 Flow Rate FiO2 03/04/19 06:00 97.6 78 16 128/74 (92) 94 03/02/19 10:15 Room Air I&O- Last 24 Hours up to 6 AM 03/04/19 06:00 Intake Total 700 ml Output Total 0 ml Balance 700 ml Laboratory Data 24H LABS Laboratory Tests 2 03/03/19 11:30: Bedside Glucose (Misc Panel) 207H 03/03/19 16:27: Bedside Glucose (Misc Panel) 143H 03/03/19 20:45: Bedside Glucose (Misc Panel) 177H 03/04/19 07:06: Bedside Glucose (Misc Panel) 129H Lizabeth Portillo [employer]ON[employer] Mar 04, 2019 09:07
[2019-03-04 09:31] LABS: BASO % 0.4 % (0.0-1.0); EOS % 0.2 % (0.0-3.0); HEMATOCRIT 38.7 % (36.0-47.0); HEMOGLOBIN 13.4 g/dl (12.0-15.5); LYMPH # 1.8 10^3/uL (1.5-4.5); LYMPH % 16.4 % (24.0-44.0); MEAN CORPUSCULAR HEMOGLOBIN 31.9 pg (27.0-33.0); MEAN CORPUSCULAR HGB CONC 34.6 g/dl (32.0-36.5); MEAN CORPUSCULAR VOLUME 92.1 fl (80.0-96.0); MONO # 0.9 10^3/uL (0.0-0.8); MONO % 7.9 % (0.0-5.0); NEUTROPHILS # 8.3 10^3/uL (1.8-7.7); NEUTROPHILS % 74.6 % (36.0-66.0); PLATELET COUNT, AUTOMATED 227 10^3/uL (150-450); WHITE BLOOD COUNT 11.1 10^3/uL (4.0-10.0)
[2019-03-04 10:04] LABS: ALBUMIN 2.2 GM/DL (3.2-5.2); ALT/SGPT 34 U/L (12-78); BILIRUBIN,TOTAL 0.5 MG/DL (0.2-1.0); BLOOD UREA NITROGEN 11 MG/DL (7-18); CALCIUM LEVEL 8.1 MG/DL (8.8-10.2); CARBON DIOXIDE LEVEL 25 MEQ/L (21-32); CHLORIDE LEVEL 104 MEQ/L (98-107); GLOMERULAR FILTRATION RATE > 60.0 (>39); GLUCOSE, FASTING 191 MG/DL (70-100); POTASSIUM SERUM 3.6 MEQ/L (3.5-5.1); SODIUM LEVEL 136 MEQ/L (136-145); TOTAL PROTEIN 5.9 GM/DL (6.4-8.2)
[2019-03-04 14:00] VITALS: BP 135/68
[2019-03-04] MEDS: ENOXAPARIN 40 MG/0.4 ML SYRINGE (J1650) SC SCH (17:04)
[2019-03-04] MEDS: ACETAMINOPHEN TAB 650MG DOSE (2X325MG) PO PRN (20:05)
[2019-03-04] MEDS: SIMVASTATIN 20 MG TAB PO SCH (20:05)
[2019-03-04 22:00] VITALS: BP 144/88
[2019-03-05 06:00] VITALS: BP 144/83
[2019-03-05] MEDS: LEVOTHYROXINE 50MCG TABLET (0.05MG) PO SCH (06:05)
[2019-03-05] MEDS: ACETAMINOPHEN TAB 650MG DOSE (2X325MG) PO PRN ×2 (06:14→12:40)
[2019-03-05] MEDS: HumaLOG INSULIN (NovoLOG) PER UNIT SC SCH ×2 (08:46→12:39)
[2019-03-05] MEDS: FAMOTIDINE 20 MG TAB PO SCH (08:47)
[2019-03-05] MEDS: DIVALPROEX 500MG *ER* TAB PO SCH (08:47)
[2019-03-05] MEDS ORDERED: SLF 3 ML SYR IV PRN (11:00)
[2019-03-05] MEDS ORDERED: SLF 3 ML SYR IV SCH (14:00)
--- NOTE | 2019-03-05 18:23 | DSES ---
DATE OF ADMISSION: 03/02/2019 DATE OF DISCHARGE: 03/05/2019 BRIEF HISTORY AND PHYSICAL: The patient is a 78-year-old patient who has been having diarrhea for 2-1/2 months, described as loose with decreased appetite but no vomiting, becoming increasingly weak, nonambulatory. Sustained a fall in the bathroom. MEDICAL HISTORY: Significant for: 1. Recent diagnosis of non-insulin dependent diabetes. 2. Hypercholesterolemia. 3. Hypothyroidism. 4. Bipolar disorder. 5. History of breast cancer treated with radiation. 6. Stress/urge incontinence. PERTINENT LABORATORIES ON ADMISSION: Sodium 137, potassium 3.3, BUN 7, creatinine 0.67, glucose was 148. A1c is 6.8. TSH is normal. Magnesium level is 2.2. WBC 13.8, hemoglobin 15.9, platelets 210,000. Right wrist x-ray showed soft tissue edema over the dorsum with no fracture or dislocation. Chest x-ray showed no acute cardiopulmonary findings. Right hand showed demineralization HOSPITAL COURSE: 1. The patient is admitted for chronic diarrhea. Recent colonoscopy in 02/28/[address] Mitchell showed mild vascular congestion in the terminal ileum. Stool studies were ordered; however, she has only had one bowel movement (BM) documented since admission. It was a smear. Her metformin was held and coincidentally had been started around the time that the diarrhea issues had begun, and this will remain on hold. 2. Diabetes mellitus, type 2, a fairly new diagnosis. Hemoglobin A1c is 6.8. She was on metformin, but this may have been contributing to her diarrhea, so will stop this for now. May consider something like Januvia as an outpatient if needed. Recommend consistent-carbohydrate diet for now and perhaps initiation of an oral agent as an outpatient with her primary care physician (PCP). 3. Sprain of the left foot. She is wearing an Aircast with previous imaging on 02/28/2019 of the left ankle showing no fracture, moderate tibiotalar and fibulotalar ankle osteoarthritis and heel spur with osteoporosis. She is ambulating with physical therapy, using a walker, and will need some short-term rehabilitation. 4. Bipolar disorder. The patient follows with Dr. Aguero. She has not really been getting her usual medicines since she has been here other than her Depakote. Will restart her usual medicines that included Risperdal and BuSpar. The daughter had shown some concern about her mood here in the hospital. On the date of discharge the patient states her mood is good. She ate really well. Said this is the first time in a little while that she has eaten well. She participated in therapy and walked around and is motivated to participate with therapy at the residential. Defer any medication adjustments to her psychiatrist as an outpatient. 5. Urge incontinence. She is normally on Enablex and will restart this upon discharge. DISPOSITION: She is stable for transfer to the residential for subacute rehabilitation. Diet should be consistent carbohydrate. Activity as tolerated per orthopedics, wearing the Aircast on her left ankle. MEDICATIONS: - anastrozole one tablet daily - BuSpar 5 mg twice a day - calcium plus D one tablet twice a day - Restasis drops to both eyes twice a day - Enablex 7.5 mg daily - Depakote ER 500 mg daily - folic acid - multivitamin with iron daily - levothyroxine 75 mcg daily - Risperdal 0.5 mg at bedtime - simvastatin 20 mg daily Metformin has been discontinued due to diarrhea. DISCHARGE DIAGNOSES: 1. Chronic diarrhea. 2. Hypokalemia. 3. Diabetes mellitus, type 2. 4. Unsteady gait with recent falls. 5. Left ankle sprain. 6. Urge incontinence. 7. Bipolar disorder. 8. Hypothyroidism.
== END 2019-03-05 13:04 | DRG 392 ==
LOC: M ED 09:59 → EDBD 09:59 → M ED INP 14:50 → M MSPAV 16:16
PROVIDERS: ADMIT Internal Medicine; ATTEND Family Medicine
DX: R19.7 Diarrhea, unspecified (principal); S93.402A Sprain of unspecified ligament of left ankle, initial encounter; R26.89 Other abnormalities of gait and mobility; F31.9 Bipolar disorder, unspecified; E87.6 Hypokalemia; E03.9 Hypothyroidism, unspecified; Z79.899 Other long term (current) drug therapy; E11.9 Type 2 diabetes mellitus without complications; E78.00 Pure hypercholesterolemia, unspecified; Z85.3 Personal history of malignant neoplasm of breast; Z88.8 Allergy status to other drugs, medicaments and biological substances; Z87.891 Personal history of nicotine dependence; W18.30XA Fall on same level, unspecified, initial encounter; Y92.009 Unspecified place in unspecified non-institutional (private) residence as the place of occurrence of the external cause

== ENCOUNTER 2019-05-20 10:21 | Emergency (ER) | payer MEDICARE, OTHER ==
[~2019-05-20] VITALS: Ht 152.4 cm; Wt 67.0 kg
[~2019-05-20 10:21] MED LIST changes: +ANAS1TAB2 PO; +DIVA500T9 PO; +METF-791 PO; -METF500T4 PO
[2019-05-20 10:22] VITALS: BP 174/89
[2019-05-20 12:25] LABS: BASO # 0.1 10^3/uL (0.0-0.2); BASO % 0.9 % (0.0-1.0); EOS # 0.3 10^3/uL (0.0-0.5); EOS % 3.4 % (0.0-3.0); HEMATOCRIT 44.2 % (36.0-47.0); HEMOGLOBIN 14.9 g/dl (12.0-15.5); LYMPH # 3.1 10^3/uL (1.5-5.0); LYMPH % 31.5 % (24.0-44.0); MEAN CORPUSCULAR HEMOGLOBIN 31.6 pg (27.0-33.0); MEAN CORPUSCULAR HGB CONC 33.7 g/dl (32.0-36.5); MEAN CORPUSCULAR VOLUME 93.8 fl (80.0-96.0); MONO # 0.9 10^3/uL (0.0-0.8); MONO % 8.7 % (0.0-5.0); NEUTROPHILS # 5.4 10^3/uL (1.5-8.5); NEUTROPHILS % 55.3 % (36.0-66.0); PLATELET COUNT, AUTOMATED 239 10^3/uL (150-450); RED BLOOD COUNT 4.71 10^6/uL (4.00-5.40); WHITE BLOOD COUNT 9.7 10^3/uL (4.0-10.0)
[2019-05-20 12:51] LABS: BLOOD UREA NITROGEN 16 MG/DL (7-18); CALCIUM LEVEL 10.1 MG/DL (8.8-10.2); CARBON DIOXIDE LEVEL 28 MEQ/L (21-32); CHLORIDE LEVEL 105 MEQ/L (98-107); CREATININE FOR GFR 0.62 MG/DL (0.55-1.30); GLOMERULAR FILTRATION RATE > 60.0 (>39); GLUCOSE, FASTING 94 MG/DL (70-100); POTASSIUM SERUM 4.2 MEQ/L (3.5-5.1); SODIUM LEVEL 140 MEQ/L (136-145)
[2019-05-20] MEDS ORDERED: ISOVUE-370 76% 100ML VIAL (Q9967) As Ordered ONE (13:13)
--- NOTE | 2019-05-21 07:23 | REP ---
CT ABDOMEN PELVIS WITH IV BUT WITHOUT ORAL CONTRAST: HISTORY: Hematuria after a fall. No comparison abdomen pelvis CT study. CT CONTRAST DOSE: 100 mL of intravenous Isovue 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 The lung bases demonstrate a granulomatous calcification in the right lower lobe and mild subpleural fibrosis bilaterally. No pleural effusion is seen. There are granulomatous calcifications scattered in the liver and the spleen. No adrenal lesion is seen. There is diffuse fatty infiltration of the liver. No focal liver lesion is appreciated. No abnormalities noted in the pancreas. There is a calcified gallstone in the dependent portion of the gallbladder. The kidneys enhance symmetrically. There is an extrarenal pelvis configuration of the right kidney. A cortical cyst is seen posteriorly in the right mid kidney. No retroperitoneal mass or adenopathy is seen. There is an infrarenal abdominal aortic aneurysm measuring 2.7 cm in AP dimension. No pelvic mass or adenopathy is seen. Small and large intestinal bowel loops are normal in the abdomen and pelvis. A normal appendix is seen in the right lower quadrant. The uterus is surgically absent. There is a small hyperdense nodule along the right posterior bladder wall which may be a enhancing neoplasm. This is 1 cm in greatest diameter. Alternatively, this could be an acute thrombus. There is mild left colonic diverticulosis. There is a periumbilical hernia transmitting abdominal fat through a 16 mm defect in the anterior abdominal wall. IMPRESSION: 1. 1 cm hyperdense nodule along the right posterior bladder wall consistent with enhancing neoplasm versus thrombus. Consider cystoscopy. 2. Cholelithiasis. 3. Left colonic diverticulosis. 4. 2.7 cm infrarenal abdominal aortic aneurysm. 5. Periumbilical ventral hernia transmitting abdominal fat. 6. Right renal cortical cyst. Electronically Signed by Martin Purvis MD 05/21/2019 09:05 A
--- NOTE | 2019-05-28 13:00 | ED PDOC ---
Post-Departure Follow-Up dr chavez and dr wahl faxed formal report of ct abd/p for fu Kay Grant MD May 28, 2019 13:00
== END 2019-05-20 15:23 | disposition home or self-care (01) ==
LOC: M ED 10:21
DX: R31.9 Hematuria, unspecified (principal); N32.89 Other specified disorders of bladder; E11.9 Type 2 diabetes mellitus without complications; F31.9 Bipolar disorder, unspecified; Z79.84 Long term (current) use of oral hypoglycemic drugs; Z91.81 History of falling; Z88.8 Allergy status to other drugs, medicaments and biological substances
CPT/HCPCS: 74177; 80048; 81001; 85025; 99284; Q9967

== ENCOUNTER → 2019-05-29 | Outpatient (REF) | payer MEDICARE, OTHER ==
[2019-05-29 19:53] LABS: APPEARANCE, URINE CLOUDY (CLEAR); BACTERIA, URINE AUTO 1+ (NEGATIVE); BILIRUBIN, URINE AUTO NEGATIVE (NEGATIVE); BLOOD, URINE BLOOD NEGATIVE (NEGATIVE); COLOR, URINE YELLOW (YELLOW); GLUCOSE, URINE (UA) AUTO NEGATIVE (NEGATIVE); KETONE, URINE AUTO NEGATIVE (NEGATIVE); LEUKOCYTE ESTERASE, URINE AUTO TRACE (NEGATIVE); MUCUS, URINE SMALL (NEGATIVE); NITRITE, URINE AUTO NEGATIVE (NEGATIVE); PROTEIN, URINE AUTO NEGATIVE (NEGATIVE); RBC, URINE AUTO 0 /HPF (0-3); SPECIFIC GRAVITY URINE AUTO 1.017 (1.002-1.035); SQUAMOUS EPITHELIAL CELL UR AU 6 /HPF (0-6); UROBILINOGEN, URINE AUTO 0.2 mg/dL (0.0-2.0); WBC, URINE AUTO 9 /HPF (0-3)
== END ==
LOC: M SMT 17:24
PROVIDERS: ATTEND Nurse Practitioner Family
DX: R31.0 Gross hematuria (principal)
CPT/HCPCS: 81001; 87086; 88108; G0463

== ENCOUNTER → 2019-05-31 | Outpatient (REF) | payer MEDICARE, OTHER | LOC: M SMT 13:10 | PROVIDERS: ATTEND Nurse Practitioner Family | DX: R31.0 Gross hematuria (principal) ==

== ENCOUNTER → 2019-06-04 | Outpatient (REF) | payer MEDICARE, OTHER | LOC: M SMT 13:37 | PROVIDERS: ATTEND Nurse Practitioner Family | DX: R31.0 Gross hematuria (principal) ==

== ENCOUNTER 2019-06-18 18:43 | Inpatient (IN) | payer MEDICARE, OTHER ==
[~2019-06-18] VITALS: Ht 152.4 cm; Wt 64.5 kg
[2019-06-18 21:13] LABS: HEMATOCRIT 44.5 % (36.0-47.0); MEAN CORPUSCULAR HEMOGLOBIN 31.6 pg (27.0-33.0); MEAN CORPUSCULAR HGB CONC 33.7 g/dl (32.0-36.5); MEAN CORPUSCULAR VOLUME 93.9 fl (80.0-96.0); PLATELET COUNT, AUTOMATED 229 10^3/uL (150-450); RED BLOOD COUNT 4.74 10^6/uL (4.00-5.40); WHITE BLOOD COUNT 10.5 10^3/uL (4.0-10.0)
[2019-06-18 21:29] LABS: AMPHETAMINES LEVEL URINE NEGATIVE (NEGATIVE); BARBITURATES URINE NEGATIVE (NEGATIVE); BENZODIAZEPINES URINE NEGATIVE (NEGATIVE); CANNABINOIDS URINE NEGATIVE (NEGATIVE); COCAINE METABOLITE URINE NEGATIVE (NEGATIVE); METHADONE URINE NEGATIVE (NEGATIVE); OPIATES URINE NEGATIVE (NEGATIVE); PHENCYCLIDINE URINE NEGATIVE (NEGATIVE)
[2019-06-18 21:44] LABS: ACETAMINOPHEN LEVEL < 2.0 UG/ML (10.0-30.0); ALBUMIN 3.5 GM/DL (3.2-5.2); ALT/SGPT 23 U/L (12-78); BILIRUBIN,DIRECT < 0.1 MG/DL (0.0-0.2); BILIRUBIN,TOTAL 0.2 MG/DL (0.2-1.0); BLOOD UREA NITROGEN 12 MG/DL (7-18); CALCIUM LEVEL 8.8 MG/DL (8.8-10.2); CARBON DIOXIDE LEVEL 27 MEQ/L (21-32); CHLORIDE LEVEL 100 MEQ/L (98-107); CREATININE FOR GFR 0.61 MG/DL (0.55-1.30); ETHYL ALCOHOL (ETHANOL) < 0.003 % (0.000-0.010); GLOMERULAR FILTRATION RATE > 60.0 (>39); GLUCOSE, FASTING 121 MG/DL (70-100); POTASSIUM SERUM 4.3 MEQ/L (3.5-5.1); SALICYLATE LEVEL < 1.7 MG/DL (5.0-30.0); SODIUM LEVEL 135 MEQ/L (136-145); TOTAL PROTEIN 7.6 GM/DL (6.4-8.2)
[2019-06-18] MEDS ORDERED: LEVO75TA4 PO (21:52)
[2019-06-18] MEDS ORDERED: CELE100C PO (22:06)
[2019-06-18] MEDS ORDERED: cloNIDine 0.1 MG TAB PO ONE (22:45)
[2019-06-18] MEDS ORDERED: MAALOX 30 ML SUSP *UDC PO PRN (22:45)
[2019-06-18] MEDS ORDERED: MOM 30ML SUSPENSION UDC PO PRN (22:45)
[2019-06-18] MEDS ORDERED: OLANZapine ORAL DISINTEGRATING TAB 5MG PO PRN (22:45)
[2019-06-18] MEDS ORDERED: LORazepam 1 MG TAB PO PRN (22:45)
[2019-06-18] MEDS ORDERED: PILL CUTTER 1 EACH XX PRN (23:00)
[2019-06-19 06:28] VITALS: BP 156/73
[2019-06-19 09:11] LABS: VALPROIC ACID (DEPAKOTE) 73.1 UG/ML (50.0-100.0)
[2019-06-19] MEDS ORDERED: HALOPERIDOL 5 MG TAB PO PRN (10:30)
[2019-06-19 10:36] VITALS: BP 156/73
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
[2019-06-19] MEDS ORDERED: PALIPERIDONE 3 MG ER TAB (INVEGA) PO ONE (11:30)
[2019-06-19] MEDS: LEVOTHYROXINE 75MCG TABLET (0.075MG) PO SCH (11:56)
[2019-06-19] MEDS: CALCIUM/VITAMIN D 500 MG TAB PO SCH ×2 (11:56→21:02)
[2019-06-19] MEDS: CelecoXIB (CeleBREX) 100 MG CAP PO SCH ×2 (13:00→21:02)
[2019-06-19 17:55] VITALS: BP 144/81
[2019-06-19] MEDS ORDERED: LOSARTAN 25 MG TAB PO ONE (18:30)
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
[2019-06-19] MEDS ORDERED: risperiDONE 1 MG TAB PO SCH (21:00)
[2019-06-19] MEDS: [UNRECOGNIZED DRUG - OTHER] OU SCH (21:01)
[2019-06-19] MEDS: POLYVINYL ALCOHOL OPHTH SOLN 15 ML(LIQUITEARS) OU SCH (21:02)
[2019-06-19] MEDS: PALIPERIDONE 3 MG ER TAB (INVEGA) PO SCH (21:02)
[2019-06-19] MEDS: traZODone 50 MG TAB PO PRN (21:03)
[2019-06-19] MEDS: SIMVASTATIN 20 MG TAB PO SCH (21:03)
[2019-06-19] MEDS: DIVALPROEX 500 MG TAB PO SCH (21:03)
[2019-06-19] MEDS: HEPARIN SOD (PORCINE) 5000 UNITS/ML VIAL SQ SCH (21:05)
[2019-06-20] MEDS: LEVOTHYROXINE 75MCG TABLET (0.075MG) PO SCH (06:13)
[2019-06-20] MEDS: HEPARIN SOD (PORCINE) 5000 UNITS/ML VIAL SQ SCH ×3 (06:13→21:45)
[2019-06-20 06:21] LABS: BASO % 0.6 % (0.0-1.0); EOS # 0.3 10^3/uL (0.0-0.5); EOS % 3.9 % (0.0-3.0); HEMOGLOBIN 13.1 g/dl (12.0-15.5); LYMPH # 2.9 10^3/uL (1.5-5.0); LYMPH % 42.2 % (24.0-44.0); MEAN CORPUSCULAR HGB CONC 33.6 g/dl (32.0-36.5); MEAN CORPUSCULAR VOLUME 95.4 fl (80.0-96.0); MONO # 0.7 10^3/uL (0.0-0.8); MONO % 10.4 % (0.0-5.0); NEUTROPHILS % 42.6 % (36.0-66.0); PLATELET COUNT, AUTOMATED 206 10^3/uL (150-450); RED BLOOD COUNT 4.09 10^6/uL (4.00-5.40)
[2019-06-20 06:47] VITALS: BP 136/65
[2019-06-20 06:48] LABS: ALBUMIN 2.7 GM/DL (3.2-5.2); ALT/SGPT 22 U/L (12-78); BILIRUBIN,TOTAL 0.2 MG/DL (0.2-1.0); BLOOD UREA NITROGEN 17 MG/DL (7-18); CARBON DIOXIDE LEVEL 24 MEQ/L (21-32); CHLORIDE LEVEL 108 MEQ/L (98-107); CHOLESTEROL LEVEL 159 MG/DL (<200); CREATININE FOR GFR 0.73 MG/DL (0.55-1.30); GLOMERULAR FILTRATION RATE > 60.0 (>39); GLUCOSE, FASTING 134 MG/DL (70-100); HDL CHOLESTEROL 60 MG/DL (>40); LDL CHOLESTEROL 66 MG/DL (<100); NON-HDL-C 99 MG/DL; POTASSIUM SERUM 4.6 MEQ/L (3.5-5.1); SODIUM LEVEL 141 MEQ/L (136-145); TOTAL PROTEIN 6.1 GM/DL (6.4-8.2); TRIGLYCERIDES LEVEL 163 MG/DL (<150); VALPROIC ACID (DEPAKOTE) 105.2 UG/ML (50.0-100.0)
--- NOTE | 2019-06-20 10:23 | MHIPNPDOC ---
[facility] Progress Note Progress Note DATE OF SERVICE: 06/20/19 HISTORY: Patient is a 78 -year-old , female, who is a pt of Dr. Aguero'darnell (missed appt with him 06/17/19) for bipolar d/o last on [facility] for jimmie in 2010 who was brought to ED by PD under 9.41 after pt's daughter called [facility] for assistance to hospitalized pt that was "manic... not stopped talking all day." Per ED, when pt arrived she was manic, hyperverbal with pressured speech, tangential, grandiose "I have all the money in the world," very goal directed (writing xmas cards, wrapping xmas gifts, planning "enormous" xmas green party at [facility], talking about pumpkin cookies), hyper-spending $6,000 on items she and her don't need and xmas gifts for other people (per pt's and daughter). Per ED, insight and judgement poor. Pt's and daughter reported that manic symptoms have been worsening for the past 2-3months. Pt reportedly compliant on her outpatient meds (risperidone 1.5mg daily and depakote 1,000mg qhs) and depakote level 77.0 (therapeutic). Pt is a poor historian due to current jimmie and history gathered from previous Hospital records. MSE based on pt status in ED and [facility] prior to haldol administration as when seen for interview was sleeping after haldol given and left sleeping to improve jimmie. Pt per staff, manic and restless this am, very distracted and talkative, grandiose. Provided pt with haldol 5mg q4hr prn anxiety/agitation and give one dose which caused her to fall asleep and remains sleep currently. Pt left slee ping as will help to improve manic symptoms. Pt's outpatient medications appear to be ineffective in treating pt's bipolar d/o as she was compliant on the per the family on admission. Therefore, will continue pt's outpatient depakote for mood stabilization, d/c risperidone, and start invega 3mg bid for bipolar d/o with plan for invega sustenna to aid compliance upon d/c. VITAL SIGNS: See below. NEW TEST RESULTS: See below. CURRENT MEDICATIONS: See below. MENTAL STATUS EXAMINATION: General Appearance: unkempt, appears stated age, hospital scrubs/clothing Build: average Demeanor: less psycho-agitation, elevated, hypomanic Eye Contact: good Activity: psycho-agitation Behavior: cooperative, less hyperactive, restless, other (poor historian easily distracted) Speech: rapid, pressured, normal volume Mood: elevated, hypomanic Mood "Shania Grimaldo is my favorite" Affect: labile, hypomanic Thought Process: tangential, associative, flight of ideas, racing, derailment Thought Content (Delusions): grandiose ("I have all kinds of money... It's my money, I earned it.), denies SI, HI, AVH, delusions Thought Content (Other): preoccupied, ideas of reference Thought Content (Aggressive): none reported Perception (Hallucinations): none reported Perception (Other): none reported Cognition (Impairment of): attention/concentration, ability to abstract Cognition(Intelligence Est.): average Oriented: Awake, Alert, Oriented times three Insight: poor Judgment: Poor Psychosis: Associations, Abstract Thinking DIAGNOSES: bipolar 1 d/o mre jimmie w/o psychosis ASSESSMENT:Pt seen and appears to have mildly improved jimmie with start of invega and continuation of depakote. States she likes them and is agreeable to invega sustenna im eventually ("anything that helps"). She remains tangential, hyperverbal, poor attention. She remains grandiose talking about spending all this money for a [employer] 07/06 ("I have lots of money in the [employer]."), paid for all the food, children's [email or web address] gifts, venue location, and wants to make sure she goes and keeps telling me. Randomly said "I have to pee again... I go to the bathroom a lot" in the middle of talking about [employer], 5yr niece in school, Dr. Aguero, and another psychiatrist. At first she said she didn't like Dr. Aguero and was never going to see him again then at the end of the interview said "Dr. Aguero is wonderful with a wonderful family." Will continue to monitor for improvement of jimmie with invega oral prior giving invega sustenna. She denies SI/HI, hallucinations. MANAGEMENT PLAN: continue plan Medications: invega 3mg bid depakote 1,000mg qhs TIME SPENT: 30 minutes. Vital Signs Vital Signs Date Time Temp Pulse Resp B/P (MAP) Pulse Ox O2 Delivery O2 Flow Rate FiO2 06/20/19 06:47 97.6 83 16 136/65 (88) 06/19/19 10:36 99 06/18/19 22:56 Room Air Laboratory Data 24H Labs Laboratory Tests 2 06/20/19 05:53: Immature Granulocyte % (Auto) 0.3, White Blood Count 7.0, Red Blood Count 4.09, Hemoglobin 13.1, Hematocrit 39.0, Mean Corpuscular Volume 95.4, Mean Corpuscular Hemoglobin 32.0, Mean Corpuscular Hemoglobin Concent 33.6, Red Cell Distribution Width 13.2, Platelet Count 206, Neutrophils (%) (Auto) 42.6, Lymphocytes (%) (Auto) 42.2, Monocytes (%) (Auto) 10.4H, Eosinophils (%) (Auto) 3.9H, Basophils (%) (Auto) 0.6, Neutrophils # (Auto) 3.0, Lymphocytes # (Auto) 2.9, Monocytes # (Auto) 0.7, Eosinophils # (Auto) 0.3, Basophils # (Auto) 0.0, Nucleated Red Blood Cells % (auto) 0.0, Anion Gap 9, Glomerular Filtration Rate > 60.0, Estimated Mean Plasma Glucose 154H, Hemoglobin A1c 7.0, Blood Urea Nitrogen 17, Creatinine 0.73, Sodium Level 141, Potassium Level 4.6, Chloride Level 108H, C arbon Dioxide Level 24, Calcium Level 9.0, Aspartate Amino Transf (AST/SGOT) 13, Alanine Aminotransferase (ALT/SGPT) 22, Alkaline Phosphatase 54, Total Bilirubin 0.2, Triglycerides Level 163H, LDL Cholesterol 66, Total Protein 6.1L, Albumin 2.7#L, Albumin/Globulin Ratio 0.79L, Total Cholesterol 159, Non-HDL Cholesterol (LDL + VLDL) 99, Total HDL Cholesterol 60, Cholesterol/HDL Ratio 2.650, Valproic Acid (Depakene) Level 105.2H CBC/BMP Laboratory Tests 06/20/19 05:53 Red Blood Count 4.09, Mean Corpuscular Volume 95.4, Mean Corpuscular Hemoglobin 32.0, Mean Corpuscular Hemoglobin Concent 33.6, Red Cell Distribution Width 13.2, Neutrophils (%) (Auto) 42.6, Lymphocytes (%) (Auto) 42.2, Monocytes (%) (Auto) 10.4 H, Eosinophils (%) (Auto) 3.9 H, Basophils (%) (Auto) 0.6, N eutrophils # (Auto) 3.0, Lymphocytes # (Auto) 2.9, Monocytes # (Auto) 0.7, Eosinophils # (Auto) 0.3, Basophils # (Auto) 0.0, Calcium Level 9.0, Aspartate Amino Transf (AST/SGOT) 13, Alanine Aminotransferase (ALT/SGPT) 22, Alkaline Phosphatase 54, Total Bilirubin 0.2, Triglycerides Level 163 H, LDL Cholesterol 66, Total Protein 6.1 L, Albumin 2.7 #L Current Medications Current Medications Medications (Trade) Dose Ordered Sig/Glenny Route PRN Reason Start Time Stop Time Status Last Admin Dose Admin Acetaminophen (Tylenol Tab) 650 mg Q6HP PRN PO HEADACHE or DISCOMFORT 06/18/19 22:45 Al Hydrox/Mg Hydrox/Simethicone (Mylanta) 30 ml Q4HP PRN PO HEARTBURN/INDIGESTION 06/18/19 22:45 Artificial Tears (Akwa Tears) 2 drop QID OU 06/19/19 21:00 06/19/19 21:02 Calcium/Vitamin D (Oscal D) 1 mg BID PO 06/19/19 09:00 06/19/19 21:02 Celecoxib (CeleBREX) 100 mg BID PO 06/19/19 09:00 06/19/19 21:02 Divalproex Sodium (Depakote) 1,000 mg QHS PO 06/19/19 21:00 06/19/19 21:03 Haloperidol (Haldol) 5 mg Q4HP PRN PO anxiety/agitation 06/19/19 10:30 Heparin Sodium (Porcine) (Heparin) 5,000 units Q8H SQ 06/19/19 22:00 06/20/19 06:13 Home Med (Med Rec Complete!) ASDIRECTED XX 06/18/19 22:00 06/18/19 21:55 DC Levothyroxine Sodium (Synthroid) 75 mcg DAILY@0600 PO 06/19/19 06:00 06/20/19 06:13 Lorazepam (Ativan) 1 mg BIDP PRN PO ANXIETY/AGITATION 06/18/19 22:45 Cancel Losartan Potassium (Cozaar) 25 mg DAILY PO 06/20/19 09:00 Magnesium Hydroxide (Milk Of Magnesia) 30 ml DAILYPRN PRN PO CONSTIPATION 06/18/19 22:45 Olanzapine (ZyPREXA ZYDIS) 5 mg Q4HP PRN PO ANXIETY/AGITATION 06/18/19 22:45 Paliperidone (Invega) 3 mg BID PO 06/19/19 21:00 06/19/19 21:02 Pantoprazole Sodium (Protonix) 20 mg DAILY PO 06/20/19 09:00 Patient Own Medication (Patient'S Own Med) Darifenacin ER PO DAILY... QAM PO 06/20/19 09:00 Patient Own Medication (Patient'S Own Med) PLACE 1 drop in each ... BID OU 06/19/19 21:00 06/19/19 21:01 Prenat Multivit/ [place]/Iron/Folic Ac ( Vitamins) 1 tab DAILY PO 06/20/19 09:00 Risperidone (RisperDAL) 1.5 mg QHS PO 06/19/19 21:00 Cancel Simvastatin (Zocor) 20 mg QHS PO 06/19/19 21:00 06/19/19 21:03 Trazodone HCl (Desyrel) 50 mg QHSP PRN PO INSOMNIA 06/18/19 22:45 06/19/19 21:03 Allergies Coded Allergies: tolterodine (Verified Allergy, Unknown, rash, 02/26/19) propoxyphene (Verified Adverse Reaction, Mild, upset stomach, 02/26/19) NIURKA RICHMOND DO Jun 20, 2019 10:22 am
[2019-06-20] MEDS: CALCIUM/VITAMIN D 500 MG TAB PO SCH ×2 (10:26→21:10)
[2019-06-20] MEDS: DARIFENACIN 7.5 MG PO SCH (10:26)
[2019-06-20] MEDS: PANTOPRAZOLE 20 MG TAB PO SCH (10:26)
[2019-06-20] MEDS: PRENATAL VITAMINS CHEWABLE TABLET PO SCH (10:27)
[2019-06-20] MEDS: POLYVINYL ALCOHOL OPHTH SOLN 15 ML(LIQUITEARS) OU SCH ×4 (10:27→21:41)
[2019-06-20] MEDS: CelecoXIB (CeleBREX) 100 MG CAP PO SCH ×2 (10:27→21:09)
[2019-06-20] MEDS: PALIPERIDONE 3 MG ER TAB (INVEGA) PO SCH ×2 (10:28→21:09)
[2019-06-20] MEDS: LOSARTAN 25 MG TAB PO SCH (10:31)
[2019-06-20] MEDS: [UNRECOGNIZED DRUG - OTHER] OU SCH ×2 (10:34→21:08)
[2019-06-20 18:23] VITALS: BP 122/61
[2019-06-20] MEDS: SIMVASTATIN 20 MG TAB PO SCH (21:09)
[2019-06-20] MEDS: DIVALPROEX 500 MG TAB PO SCH (21:09)
[2019-06-20] MEDS: traZODone 50 MG TAB PO PRN (21:41)
[2019-06-21 06:04] VITALS: BP 162/72
[2019-06-21] MEDS: LEVOTHYROXINE 75MCG TABLET (0.075MG) PO SCH (06:33)
[2019-06-21] MEDS: HEPARIN SOD (PORCINE) 5000 UNITS/ML VIAL SQ SCH ×3 (06:33→21:13)
[2019-06-21] MEDS: [UNRECOGNIZED DRUG - OTHER] OU SCH ×2 (09:00→21:14)
[2019-06-21] MEDS: DARIFENACIN 7.5 MG PO SCH (09:55)
[2019-06-21] MEDS: LOSARTAN 25 MG TAB PO SCH (09:56)
[2019-06-21] MEDS: PRENATAL VITAMINS CHEWABLE TABLET PO SCH (09:56)
[2019-06-21] MEDS: PANTOPRAZOLE 20 MG TAB PO SCH (09:57)
[2019-06-21] MEDS: PALIPERIDONE 3 MG ER TAB (INVEGA) PO SCH ×2 (09:57→21:12)
[2019-06-21] MEDS: CelecoXIB (CeleBREX) 100 MG CAP PO SCH ×2 (09:58→21:12)
[2019-06-21] MEDS: CALCIUM/VITAMIN D 500 MG TAB PO SCH ×2 (09:58→21:12)
[2019-06-21] MEDS: POLYVINYL ALCOHOL OPHTH SOLN 15 ML(LIQUITEARS) OU SCH ×4 (09:59→21:12)
--- NOTE | 2019-06-21 10:05 | MHIPNPDOC ---
[facility] Progress Note Progress Note DATE OF SERVICE: 06/21/19 HISTORY: Patient is a 78 -year-old , female, who is a pt of Dr. Aguero'darnell (missed appt with him 06/17/19) for bipolar d/o last on [facility] for jimmie in 2010 who was brought to ED by PD under 9.41 after pt's daughter called [facility] for assistance to hospitalized pt that was "manic... not stopped talking all day." Per ED, when pt arrived she was manic, hyperverbal with pressured speech, tangential, grandiose "I have all the money in the world," very goal directed (writing xmas cards, wrapping xmas gifts, planning "enormous" xmas constitution party at [facility], talking about pumpkin cookies), hyper-spending $6,000 on items she and her don't need and xmas gifts for other people (per pt's and daughter). Per ED, insight and judgement poor. Pt's and daughter reported that manic symptoms have been worsening for the past 2-3months. Pt reportedly compliant on her outpatient meds (risperidone 1.5mg daily and dep akote 1,000mg qhs) and depakote level 77.0 (therapeutic). Pt is a poor historian due to current jimmie and history gathered from previous Hospital records. MSE based on pt status in ED and [facility] prior to haldol administration as when seen for interview was sleeping after haldol given and left sleeping to improve jimmie. Pt per staff, manic and restless this am, very distracted and talkative, grandiose. Provided pt with haldol 5mg q4hr prn anxiety/agitation and give one dose which caused her to fall asleep and remains sleep currently. Pt left sleeping as will help to improve manic symptoms. Pt's outpatient medications appear to be ineffective in treating pt's bipolar d/o as she was compliant on the per the family on admission. Therefore, will continue pt's outpatient depakote for mood stabilization, d/c risperidone, and start invega 3mg bid for bipolar d/o with plan for invega sustenna to aid compliance upon d/c. VITAL SIGNS: See below. NEW TEST RESULTS: See below. CURRENT MEDICATIONS: See below. MENTAL STATUS EXAMINATION: General Appearance: unkempt, appears stated age, hospital scrubs/clothing Build: average Demeanor: cooperative Eye Contact: good Activity: average Behavior: cooperative, less hyperactive, restless, other (poor historian easily distracted) Speech: less rapid, pressured, normal volume Mood: elevated, hypomanic Mood "Cheerful" Affect: less labile, hypomanic Thought Process: less tangential, associative, flight of ideas, racing, derailment Thought Content (Delusions): grandiose ("I have all kinds of money... It's my money, I earned it.), denies SI, HI, AVH, delusions Thought Content (Other): preoccupied, ideas of reference Thought Content (Aggressive): none reported Perception (Hallucinations): none reported Perception (Other): none reported Cognition (Impairment of): attention/concentration, ability to abstract Cognition(Intelligence Est.): average Oriented: Awake, Alert, Oriented times three Insight: poor Judgment: Poor Psychosis: Associations, Abstract Thinking DIAGNOSES: bipolar 1 d/o mre jimmie w/o psychosis ASSESSMENT:Pt seen and states she feels "cheerful" but a little sleepy this morning. Per staff is sleeping well at night and appears less manic. Pt does appear less manic today and denies depression, jimmie. She is still feels very goal directed. She appears to have improved jimmie with start of invega and continuation of depakote. Depakote level 105.2 so will decrease dose to 750mg nightly to decrease level to more therapeutic/safe range. Should improve daytime fatigue as well. States she likes them and is agreeable to invega sustenna im eventually ("anything that helps"). She remains tangential, hyperverbal, poor attention. She remains grandiose talking about reagrding planning Xmas constitution party 07/06 and wants to make sure she goes and keeps telling me. Will continue to monitor for improvement of jimmie with invega oral prior giving invega sustenna. She denies SI/HI, hallucinations. MANAGEMENT PLAN: continue plan Medications: invega 3mg bid depakote 1,000mg qhs TIME SPENT: 30 minutes. Vital Signs Vital Signs Date Time Temp Pulse Resp B/P (MAP) Pulse Ox O2 Delivery O2 Flow Rate FiO2 06/21/19 06:04 99.4 102 16 162/72 (102) 06/19/19 10:36 99 06/18/19 22:56 Room Air Current Medications Current Medications Medications (Trade) Dose Ordered Sig/Glenny Route PRN Reason Start Time Stop Time Status Last Admin Dose Admin Acetaminophen (Tylenol Tab) 650 mg Q6HP PRN PO HEADACHE or DISCOMFORT 06/18/19 22:45 Al Hydrox/Mg Hydrox/Simethicone (Mylanta) 30 ml Q4HP PRN PO HEARTBURN/INDIGESTION 06/18/19 22:45 Artificial Tears (Akwa Tears) 2 drop QID OU 06/19/19 21:00 06/20/19 21:41 Calcium/Vitamin D (Oscal D) 1 mg BID PO 06/19/19 09:00 06/20/19 10:10 DC 06/19/19 21:02 Calcium/Vitamin D (Oscal D) 500 mg BID PO 06/20/19 11:00 06/20/19 21:10 Celecoxib (CeleBREX) 100 mg BID PO 06/19/19 09:00 06/20/19 21:09 Divalproex Sodium (Depakote) 1,000 mg QHS PO 06/19/19 21:00 06/20/19 21:09 Haloperidol (Haldol) 5 mg Q4HP PRN PO anxiety/agitation 06/19/19 10:30 Heparin Sodium (Porcine) (Heparin) 5,000 units Q8H SQ 06/19/19 22:00 06/21/19 06:33 Home Med (Med Rec Complete!) ASDIRECTED XX 06/18/19 22:00 06/18/19 21:55 DC Levothyroxine Sodium (Synthroid) 75 mcg DAILY@0600 PO 06/19/19 06:00 06/21/19 06:33 Lorazepam (Ativan) 1 mg BIDP PRN PO ANXIETY/AGITATION 06/18/19 22:45 Cancel Losartan Potassium (Cozaar) 25 mg DAILY PO 06/20/19 09:00 06/20/19 10:31 Magnesium Hydroxide (Milk Of Magnesia) 30 ml DAILYPRN PRN PO CONSTIPATION 06/18/19 22:45 Olanzapine (ZyPREXA ZYDIS) 5 mg Q4HP PRN PO ANXIETY/AGITATION 06/18/19 22:45 Paliperidone (Invega) 3 mg BID PO 06/19/19 21:00 06/20/19 21:09 Pantoprazole Sodium (Protonix) 20 mg DAILY PO 06/20/19 09:00 06/20/19 10:26 Patient Own Medication (Patient'S Own Med) Darifenacin ER PO DAILY... QAM PO 06/20/19 09:00 06/20/19 10:26 Patient Own Medication (Patient'S Own Med) PLACE 1 drop in each ... BID OU 06/19/19 21:00 06/20/19 21:08 Prenat Multivit/ [place]/Iron/Folic Ac ( Vitamins) 1 tab DAILY PO 06/20/19 09:00 06/20/19 10:27 Risperidone (RisperDAL) 1.5 mg QHS PO 06/19/19 21:00 Cancel Simvastatin (Zocor) 20 mg QHS PO 06/19/19 21:00 06/20/19 21:09 Trazodone HCl (Desyrel) 50 mg QHSP PRN PO INSOMNIA 06/18/19 22:45 06/20/19 21:41 Allergies Coded Allergies: tolterodine (Verified Allergy, Unknown, rash, 02/26/19) propoxyphene (Verified Adverse Reaction, Mild, upset stomach, 02/26/19) NIURKA RICHMOND DO Jun 21, 2019 10:05 am
[2019-06-21 17:24] VITALS: BP 133/60
[2019-06-21] MEDS: traZODone 50 MG TAB PO PRN (21:12)
[2019-06-21] MEDS: SIMVASTATIN 20 MG TAB PO SCH (21:12)
[2019-06-21] MEDS: DIVALPROEX 250 MG TAB PO SCH (21:13)
[2019-06-22] MEDS: HEPARIN SOD (PORCINE) 5000 UNITS/ML VIAL SQ SCH ×2 (05:54→13:20)
[2019-06-22] MEDS: LEVOTHYROXINE 75MCG TABLET (0.075MG) PO SCH (05:54)
[2019-06-22 07:26] LABS: HEMOGLOBIN 13.7 g/dl (12.0-15.5); MEAN CORPUSCULAR HEMOGLOBIN 31.4 pg (27.0-33.0); MEAN CORPUSCULAR HGB CONC 33.4 g/dl (32.0-36.5); MEAN CORPUSCULAR VOLUME 93.8 fl (80.0-96.0); PLATELET COUNT, AUTOMATED 223 10^3/uL (150-450); RED BLOOD COUNT 4.37 10^6/uL (4.00-5.40); WHITE BLOOD COUNT 9.1 10^3/uL (4.0-10.0)
[2019-06-22] MEDS: POLYVINYL ALCOHOL OPHTH SOLN 15 ML(LIQUITEARS) OU SCH ×4 (08:55→21:30)
[2019-06-22] MEDS: CALCIUM/VITAMIN D 500 MG TAB PO SCH ×2 (08:56→21:31)
[2019-06-22] MEDS: LOSARTAN 25 MG TAB PO SCH (08:56)
[2019-06-22] MEDS: CelecoXIB (CeleBREX) 100 MG CAP PO SCH ×2 (08:56→21:31)
[2019-06-22] MEDS: DARIFENACIN 7.5 MG PO SCH (08:56)
[2019-06-22] MEDS: PALIPERIDONE 3 MG ER TAB (INVEGA) PO SCH ×2 (08:56→21:31)
[2019-06-22] MEDS: PANTOPRAZOLE 20 MG TAB PO SCH (08:56)
[2019-06-22] MEDS: PRENATAL VITAMINS CHEWABLE TABLET PO SCH (08:56)
[2019-06-22] MEDS: [UNRECOGNIZED DRUG - OTHER] OU SCH ×2 (08:59→21:31)
--- NOTE | 2019-06-22 11:18 | HPEPDOC ---
General Date of Admission Jun 18, 2019 at 22:43 Date of Service: Jun 22, 2019 Chief Complaint The patient is a 78-year-old female admitted with a reason for visit of E. Source: Patient, Other (internal medicine history and physical report of 06/19/2019) Exam Limitations: No limitations Timing/Duration: This morning Severity: Mild Associated Symptoms: Other (mild itching) History of Present Illness This is a medical consultation for the inpatient mental health unit. Ms. Raymundo is a 78-year-old female who had been admitted to [facility] for exacerbation of her bipolar disorder. She had sustained a fall prior to admission resulting in abrasions to the right side of her face. She is concerned that she has a right eye infection. Please see also medical consultation report from 06/19/2019 Home Medications Scheduled Anastrozole (Anastrozole) 1 Mg Tablet, 1 MG PO DAILY, (Reported) Buspirone HCl (Buspirone HCl) 5 Mg Tablet, 5 MG PO BID, (Reported) Calcium Carbonate/Vitamin D3 (Calcium 600 + Vit D 400 Softgl) 1 Each Capsule, 1 CAP PO BID, (Reported) Celecoxib (Celebrex) 100 Mg Capsule, 100 MG PO BID, (Reported) Cyclosporine (Restasis) 0.05 % Emu, 1 DROP OU BID, (Reported) Darifenacin Hydrobromide (Enablex) 7.5 Mg Tab, 7.5 MG PO DAILY, (Reported) Divalproex Sodium (Divalproex Sodium ER) 500 Mg Tab.er.24h, 500 MG PO DAILY, (Reported) Folic Acid/Multivit,Iron,[place] (One Daily For Women Tablet) 1 Tab Tab, 1 TAB PO DAILY, (Reported) Levothyroxine Sodium (Levothyroxine Sodium) 75 Mcg Tablet, 75 MCG PO DAILY, (Reported) Risperidone (Risperidone) 0.5 Mg Tablet, 0.5 MG PO DAILY, (Reported) Simvastatin (Simvastatin) 20 Mg Tab, 20 MG PO QHS, (Reported) Allergies Coded Allergies: tolterodine (Verified Allergy, Unknown, rash, 02/26/19) propoxyphene (Verified Adverse Reaction, Mild, upset stomach, 02/26/19) Past Medical History Medical History Past medical history includes hypothyroidism, essential hypertension, [id number] diabetes mellitus, osteoporosis, dyslipidemia, bipolar disorder, breast cancer Surgical History Surgical history includes left breast lumpectomy, cataract surgery Family History Family history includes maternal history of breast cancer and paternal history of cirrhosis Social History * Smoker: former Smoker (the patient's smoking history is been remote for 40 year) Alcohol: Denies Drugs: denies Pets in the home: Cat(s) Psychosocial History: Bipolar (the patient is currently admitted for fairly severe manic episode) The patient is retired A-FIB/CHADSVASC A-FIB History Current/History of A-Fib/PAF?: No Current PO Anticoag Therapy: No Review of Systems Other systems Review of 10 systems is otherwise negative except as stated in the brief presentation Physical Examination General Exam: Positive: Alert, Cooperative, No Acute Distress, Mild Distress Eye Exam: Positive: PERRLA, Conjunctiva & lids normal (the patient does not have any scleral or conjunctival injection. She does not have any excessive tearing or drainage.) ENT Exam: Positive: Atraumatic, Mucous membr. moist/pink, Pharynx Normal, Tongue Midline, Nares Patent, Ext Auditory Canal Nml Neck Exam: Positive: Supple, +2 carotid pulse wo bruit Chest Exam: Positive: Clear to auscultation, Normal air movement Heart Exam: Positive: Rate Normal, Regular Rhythm, Normal S1, Normal S2 Abdomen Exam: Positive: Normal bowel sounds, Soft Extremity Exam: Positive: Normal pulses Skin Exam: Positive: Nl turgor and temperature, Pruritus (the patient does have some healing abrasion with some itching to the right side of her face, lateral t o her right eye. There is no drainage or significant erythema or induration.), Other skin issue (multiple red lacerations bilateral knuckles; cuts/lacerations related right side of face from eyebrow to the cheekbone from fall in the cellar; left tib-fib healing wound from fall, skin discoloration brown in color pink and non-tender to palpation) Neuro Exam: Positive: Sensation Intact, Cranial Nerves 3-12 NL, Other (gait is unsteady, wobbly uneven heel toe during ambulation. Speech is rapid with high and low pitches with different subject matter) Psych Exam: Positive: Anxiety (oriented 2month was prolonged. She said of April 2019), Other (stated she has 1200 READY to get the [facility] green party July 06, and she needs to be out by July 06. Loose associations, poor insight) Vital Signs Vital Signs Date Time Temp Pulse Resp B/P (MAP) Pulse Ox O2 Delivery O2 Flow Rate FiO2 06/22/19 08:56 144/65 06/22/19 08:33 Room Air 06/21/19 17:24 98.6 92 18 06/19/19 10:36 99 Laboratory Data Labs 24H Laboratory Tests 2 06/22/19 07:05: Nucleated Red Blood Cells % (auto) 0.0 CBC/BMP Laboratory Tests 06/22/19 07:05 Red Blood Count 4.37, Mean Corpuscular Volume 93.8, Mean Corpuscular Hemoglobin 31.4, Mean Corpuscular Hemoglobin Concent 33.4, Red Cell Distribution Width 13.2 Assessment/Plan With directed attention to the patient's complaints. She does not have any infection or conjunctivitis to her eyes. She also does not have any infection to the skin on her face. She does have healing abrasions lateral to her right eye that she sustained in a fall prior to admission. This copywriter recommends use of a topical antibiotic ointment until the sites are healed. The patient does not have any other acute medical conditions or concerns at this time. We again sign off. Please not hesitate to call if there are any new acute medical issues. Plan / VTE VTE Prophylaxis Ordered?: No (the patient is fully independently ambulatory) VTE Exclusion Mechanical Proph: Low Risk for VTE VTE Exclusion Pharmacological: At Low Risk for VTE Plan Diet: Continue Current Activity: Encourage Ambulation Medications: Other Med: (she will continue her current medications and other therapies within the mental health unit) Anticipated Discharge: Home DEBBIE JENKINS MD Jun 22, 2019 11:18
[2019-06-22 15:53] VITALS: BP 108/57
[2019-06-22] MEDS: BACITRACIN OINT 30GM TOP PRN (21:30)
[2019-06-22] MEDS: traZODone 50 MG TAB PO PRN (21:30)
[2019-06-22] MEDS: DIVALPROEX 250 MG TAB PO SCH (21:31)
[2019-06-22] MEDS: SIMVASTATIN 20 MG TAB PO SCH (21:31)
[2019-06-23] MEDS: LEVOTHYROXINE 75MCG TABLET (0.075MG) PO SCH (05:55)
[2019-06-23 06:36] VITALS: BP 147/63
[2019-06-23] MEDS: [UNRECOGNIZED DRUG - OTHER] OU SCH ×3 (09:36→21:52)
[2019-06-23] MEDS: DARIFENACIN 7.5 MG PO SCH (09:37)
[2019-06-23] MEDS: POLYVINYL ALCOHOL OPHTH SOLN 15 ML(LIQUITEARS) OU SCH ×5 (09:37→21:52)
[2019-06-23] MEDS: PANTOPRAZOLE 20 MG TAB PO SCH (09:37)
[2019-06-23] MEDS: PALIPERIDONE 3 MG ER TAB (INVEGA) PO SCH ×3 (09:37→21:52)
[2019-06-23] MEDS: CALCIUM/VITAMIN D 500 MG TAB PO SCH ×3 (09:39→21:52)
[2019-06-23] MEDS: PRENATAL VITAMINS CHEWABLE TABLET PO SCH (09:39)
[2019-06-23] MEDS: CelecoXIB (CeleBREX) 100 MG CAP PO SCH ×3 (09:39→21:52)
[2019-06-23] MEDS: LOSARTAN 25 MG TAB PO SCH (09:39)
[2019-06-23] MEDS: HEPARIN SOD (PORCINE) 5000 UNITS/ML VIAL SQ SCH (09:42)
[2019-06-23] MEDS: BACITRACIN OINT 30GM TOP PRN (09:49)
--- NOTE | 2019-06-23 10:25 | MHIPNPDOC ---
[facility] Progress Note Progress Note DATE OF SERVICE: 06/23/19 HISTORY: Patient is a 78 -year-old , female, who is a pt of Dr. Aguero'darnell (missed appt with him 06/17/19) for bipolar d/o last on [facility] for jimmie in 2010 who was brought to ED by PD under 9.41 after pt's daughter called [facility] for assistance to hospitalized pt that was "manic... not stopped talking all day." Per ED, when pt arrived she was manic, hyperverbal with pressured speech, tangential, grandiose "I have all the money in the world," very goal directed (writing xmas cards, wrapping xmas gifts, planning "enormous" xmas green party at [facility], talking about pumpkin cookies), hyper-spending $6,000 on items she and her don't need and xmas gifts for other people (per pt's and daughter). Per ED, insight and judgement poor. Pt's and daughter reported that manic symptoms have been worsening for the past 2-3months. Pt reportedly compliant on her outpatient meds (risperidone 1.5mg daily and dep akote 1,000mg qhs) and depakote level 77.0 (therapeutic). Pt is a poor historian due to current jimmie and history gathered from previous Hospital records. MSE based on pt status in ED and [facility] prior to haldol administration as when seen for interview was sleeping after haldol given and left sleeping to improve jimmie. Pt per staff, manic and restless this am, very distracted and talkative, grandiose. Provided pt with haldol 5mg q4hr prn anxiety/agitation and give one dose which caused her to fall asleep and remains sleep currently. Pt left sleeping as will help to improve manic symptoms. Pt's outpatient medications appear to be ineffective in treating pt's bipolar d/o as she was compliant on the per the family on admission. Therefore, will continue pt's outpatient depakote for mood stabilization, d/c risperidone, and start invega 3mg bid for bipolar d/o with plan for invega sustenna to aid compliance upon d/c. VITAL SIGNS: See below. NEW TEST RESULTS: See below. CURRENT MEDICATIONS: See below. MENTAL STATUS EXAMINATION: General Appearance: unkempt, appears stated age, ownclothing Build: average Demeanor: cooperative Eye Contact: good Activity: average Behavior: cooperative, (poor historian) Speech: reg rate, normal volume Mood: more euthymic and appropriate range Mood "ok" Affect: less labile, more euthymic Thought Process: more linear and logical, concrete Thought Content (Delusions): less grandiose, denies SI, HI, AVH, delusions Thought Content (Other): less preoccupied, ideas of reference Thought Content (Aggressive): none reported Perception (Hallucinations): none reported Perception (Other): none reported Cognition (Impairment of): improved ttention/concentration, ability to abstract Cognition(Intelligence Est.): average Oriented: Awake, Alert, Oriented times three Insight: poor Judgment: Poor Psychosis: improving Associations, Abstract Thinking DIAGNOSES: bipolar 1 d/o mre jimmie w/o psychosis ASSESSMENT:Per staff pt appears to be leaning toward her right side when walking which is new from yesterday. Asked pt about it and stated she had a pain in her right side during the night and currently. States she was supposed to have a bladder exam outpatient as she had some type of problem with her kidney although doesn't know exactly what. Pt encouraged to take tylenol prn pain and I will o rder CMP, U/A and b/l renal and bladder U/S to evaluate further. Pt seen and states she feels "ok" otherwise. Seen by hospitalist yesterday regarding rt eye irritation and Rx eye drops to aid. Per staff is sleeping well at night and appears less manic. Pt continues to appear less manic today and denies depression, jimmie. She is less goal directed. She appears to have improved jimmie with start of invega and continuation of depakote. Depakote level 105.2 so will decrease dose to 750mg nightly to decrease level to more therapeutic/safe range. Should improve daytime fatigue as well. States she likes them and is agreeable to invega sustenna im eventually ("anything that helps"). She remains tangential, hyperverbal, poor attention. She remains grandiose talking about reagrding planning Xmas green party 07/06 and wants to make sure she goes and keeps telling me. Will continue to monitor for improvement of jimmie with invega oral prior giving invega sustenna. She denies SI/HI, hallucinations. MANAGEMENT PLAN: continue plan Medications: invega 3mg bid depakote 1,000mg qhs TIME SPENT: 30 minutes. Vital Signs Vital Signs Date Time Temp Pulse Resp B/P (MAP) Pulse Ox O2 Delivery O2 Flow Rate FiO2 06/23/19 09:39 150/68 06/23/19 07:49 Room Air 06/23/19 06:36 97.5 99 16 06/19/19 10:36 99 Current Medications Current Medications Medications (Trade) Dose Ordered Sig/Glenny Route PRN Reason Start Time Stop Time Status Last Admin Dose Admin Acetaminophen (Tylenol Tab) 650 mg Q6HP PRN PO HEADACHE or DISCOMFORT 06/18/19 22:45 Al Hydrox/Mg Hydrox/Simethicone (Mylanta) 30 ml Q4HP PRN PO HEARTBURN/INDIGESTION 06/18/19 22:45 Artificial Tears (Akwa Tears) 2 drop QID OU 06/19/19 21:00 06/23/19 09:37 Bacitracin (Bacitracin Oint) TO RIGHT SIDED FAC... DAILYPRN PRN TOP REDNESS/IRRITATION 06/22/19 11:00 06/23/19 09:49 Calcium/Vitamin D (Oscal D) 1 mg BID PO 06/19/19 09:00 06/20/19 10:10 DC 06/19/19 21:02 Calcium/Vitamin D (Oscal D) 500 mg BID PO 06/20/19 11:00 06/23/19 09:39 Celecoxib (CeleBREX) 100 mg BID PO 06/19/19 09:00 06/23/19 09:39 Divalproex Sodium (Depakote) 750 mg QHS PO 06/21/19 21:00 06/22/19 21:31 Divalproex Sodium (Depakote) 1,000 mg QHS PO 06/19/19 21:00 06/21/19 10:05 DC 06/20/19 21:09 Haloperidol (Haldol) 5 mg Q4HP PRN PO anxiety/agitation 06/19/19 10:30 Heparin Sodium (Porcine) (Heparin) 5,000 units DAILY SQ 06/23/19 09:00 06/23/19 09:42 Heparin Sodium (Porcine) (Heparin) 5,000 units Q8H SQ 06/19/19 22:00 06/22/19 18:55 DC 06/22/19 13:20 Home Med (Med Rec Complete!) ASDIRECTED XX 06/18/19 22:00 06/18/19 21:55 DC Levothyroxine Sodium (Synthroid) 75 mcg DAILY@0600 PO 06/19/19 06:00 06/23/19 05:55 Lorazepam (Ativan) 1 mg BIDP PRN PO ANXIETY/AGITATION 06/18/19 22:45 Cancel Losartan Potassium (Cozaar) 25 mg DAILY PO 06/20/19 09:00 06/23/19 09:39 Magnesium Hydroxide (Milk Of Magnesia) 30 ml DAILYPRN PRN PO CONSTIPATION 06/18/19 22:45 Olanzapine (ZyPREXA ZYDIS) 5 mg Q4HP PRN PO ANXIETY/AGITATION 06/18/19 22:45 Paliperidone (Invega) 3 mg BID PO 06/19/19 21:00 06/23/19 09:37 Pantoprazole Sodium (Protonix) 20 mg DAILY PO 06/20/19 09:00 06/23/19 09:37 Patient Own Medication (Patient'S Own Med) Darifenacin ER PO DAILY... QAM PO 06/20/19 09:00 06/23/19 09:37 Patient Own Medication (Patient'S Own Med) PLACE 1 drop in each ... BID OU 06/19/19 21:00 06/23/19 09:36 Prenat Multivit/ Screen Printing Stencil Preparer/Iron/Folic Ac ( Vitamins) 1 tab DAILY PO 06/20/19 09:00 06/23/19 09:39 Risperidone (RisperDAL) 1.5 mg QHS PO 06/19/19 21:00 Cancel Simvastatin (Zocor) 20 mg QHS PO 06/19/19 21:00 06/22/19 21:31 Trazodone HCl (Desyrel) 50 mg QHSP PRN PO INSOMNIA 06/18/19 22:45 06/22/19 21:30 Allergies Coded Allergies: tolterodine (Verified Allergy, Unknown, rash, 02/26/19) propoxyphene (Verified Adverse Reaction, Mild, upset stomach, 02/26/19) NIURKA RICHMOND DO Jun 23, 2019 10:25 am
--- NOTE | 2019-06-23 12:25 | REP ---
REASON: Flank pain. COMPARISON: None. FINDINGS: Multiple ultrasonographic images of the right kidney show the right kidney to measure 12.4 x 4.3 x 3.5. The renal cortical echotexture is unremarkable. There are no masses. There is good corticomedullary differentiation. There is no hydronephrosis. There are no perinephric fluid collections. Multiple ultrasonographic images of the left kidney show the left kidney to measure 11.6 x 4 x 5 cm. The renal cortical echotexture is unremarkable. There are no masses. There is good corticomedullary differentiation. There is no hydronephrosis. There are no perinephric fluid collections. There is evidence to suggest mild bilateral renal cortical thinning. There is also evidence of a mildly dilated renal pelvis bilaterally. IMPRESSION: Evidence of mild dilation of the renal pelvis bilaterally. 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 There is no evidence of hydronephrosis. Mild bilateral most likely age-related renal cortical thinning. Electronically Signed by Wilner Brooks DO 06/23/2019 12:49 P
--- NOTE | 2019-06-23 12:28 | REP ---
REASON FOR EXAM: Flank pain. Multiple ultrasonographic images of the urinary bladder show a focal area of increased echoes along the posterior bladder wall of uncertain etiology. Neoplasm cannot be ruled out. This measures approximately 1.4 x 0.7 x 1.2 cm. Doppler of the urinary bladder shows urojet phenomena bilaterally. IMPRESSION: Abnormal echogenic area along the posterior urinary bladder wall as described above. Neoplasm cannot be ruled out. Urological consultation is recommended. Electronically Signed by Wilner Brooks DO 06/23/2019 12:49 P
[2019-06-23 12:34] LABS: APPEARANCE, URINE CLEAR (CLEAR); BACTERIA, URINE AUTO 1+ (NEGATIVE); BILIRUBIN, URINE AUTO NEGATIVE (NEGATIVE); BLOOD, URINE BLOOD NEGATIVE (NEGATIVE); COLOR, URINE YELLOW (YELLOW); GLUCOSE, URINE (UA) AUTO NEGATIVE (NEGATIVE); KETONE, URINE AUTO NEGATIVE (NEGATIVE); LEUKOCYTE ESTERASE, URINE AUTO NEGATIVE (NEGATIVE); MUCUS, URINE SMALL (NEGATIVE); NITRITE, URINE AUTO NEGATIVE (NEGATIVE); PROTEIN, URINE AUTO NEGATIVE (NEGATIVE); RBC, URINE AUTO 0 /HPF (0-3); SPECIFIC GRAVITY URINE AUTO 1.002 (1.002-1.035); SQUAMOUS EPITHELIAL CELL UR AU 1 /HPF (0-6); UROBILINOGEN, URINE AUTO 0.2 mg/dL (0.0-2.0); WBC, URINE AUTO 2 /HPF (0-3)
[2019-06-23 13:05] VITALS: BP 143/71
[2019-06-23 13:19] LABS: ALBUMIN 3.3 GM/DL (3.2-5.2); ALT/SGPT 28 U/L (12-78); BILIRUBIN,TOTAL 0.3 MG/DL (0.2-1.0); BLOOD UREA NITROGEN 19 MG/DL (7-18); CALCIUM LEVEL 9.5 MG/DL (8.8-10.2); CARBON DIOXIDE LEVEL 25 MEQ/L (21-32); CHLORIDE LEVEL 104 MEQ/L (98-107); CREATININE FOR GFR 0.62 MG/DL (0.55-1.30); GLOMERULAR FILTRATION RATE > 60.0 (>39); GLUCOSE, FASTING 134 MG/DL (70-100); POTASSIUM SERUM 4.2 MEQ/L (3.5-5.1); SODIUM LEVEL 136 MEQ/L (136-145)
[2019-06-23 15:56] VITALS: BP 130/70
[2019-06-23] MEDS: SIMVASTATIN 20 MG TAB PO SCH ×2 (21:00→21:52)
[2019-06-23] MEDS: DIVALPROEX 250 MG TAB PO SCH ×2 (21:00→21:51)
[2019-06-23] MEDS: NYSTATIN CREAM 15 GM TOP SCH ×2 (21:00→21:52)
[2019-06-24] MEDS: LEVOTHYROXINE 75MCG TABLET (0.075MG) PO SCH (05:47)
[2019-06-24 06:25] VITALS: BP 149/67
[2019-06-24] MEDS: PALIPERIDONE 3 MG ER TAB (INVEGA) PO SCH ×2 (08:45→20:26)
[2019-06-24] MEDS: PANTOPRAZOLE 20 MG TAB PO SCH (08:47)
[2019-06-24] MEDS: DARIFENACIN 7.5 MG PO SCH (08:47)
[2019-06-24] MEDS: PRENATAL VITAMINS CHEWABLE TABLET PO SCH (08:47)
[2019-06-24] MEDS: CelecoXIB (CeleBREX) 100 MG CAP PO SCH ×2 (08:47→20:25)
[2019-06-24] MEDS: LOSARTAN 25 MG TAB PO SCH (08:47)
[2019-06-24] MEDS: POLYVINYL ALCOHOL OPHTH SOLN 15 ML(LIQUITEARS) OU SCH ×4 (08:48→20:37)
[2019-06-24] MEDS: [UNRECOGNIZED DRUG - OTHER] OU SCH ×2 (08:48→20:23)
[2019-06-24] MEDS: HEPARIN SOD (PORCINE) 5000 UNITS/ML VIAL SQ SCH (08:51)
[2019-06-24] MEDS: NYSTATIN CREAM 15 GM TOP SCH ×2 (09:46→20:27)
[2019-06-24] MEDS: ACETAMINOPHEN TAB 650MG DOSE (2X325MG) PO PRN ×2 (09:48→16:50)
[2019-06-24] MEDS: CALCIUM/VITAMIN D 500 MG TAB PO SCH ×2 (10:25→20:25)
--- NOTE | 2019-06-24 10:48 | MHIPNPDOC ---
[facility] Progress Note Progress Note DATE OF SERVICE: 06/24/19 HISTORY: Patient is a 78 -year-old , female, who is a pt of Dr. Aguero'darnell (missed appt with him 06/17/19) for bipolar d/o last on [facility] for jimmie in 2010 who was brought to ED by PD under 9.41 after pt's daughter called [facility] for assistance to hospitalized pt that was "manic... not stopped talking all day." Per ED, when pt arrived she was manic, hyperverbal with pressured speech, tangential, grandiose "I have all the money in the world," very goal directed (writing xmas cards, wrapping xmas gifts, planning "enormous" xmas green party at [facility], talking about pumpkin cookies), hyper-spending $6,000 on items she and her don't need and xmas gifts for other people (per pt's and daughter). Per ED, insight and judgement poor. Pt's and daughter reported that manic symptoms have been worsening for the past 2-3months. Pt reportedly compliant on her outpatient meds (risperidone 1.5mg daily and depakote 1,000mg qhs) and depakote level 77.0 (therapeutic). Pt is a poor historian due to current jimmie and history gathered from previous Hospital records. MSE based on pt status in ED and [facility] prior to haldol administration as when seen for interview was sleeping after haldol given and left sleeping to improve jimmie. Pt per staff, manic and restless this am, very distracted and talkative, grandiose. Provided pt with haldol 5mg q4hr prn anxiety/agitation and give one dose which caused her to fall asleep and remains sleep currently. Pt left slee ping as will help to improve manic symptoms. Pt's outpatient medications appear to be ineffective in treating pt's bipolar d/o as she was compliant on the per the family on admission. Therefore, will continue pt's outpatient depakote for mood stabilization, d/c risperidone, and start invega 3mg bid for bipolar d/o with plan for invega sustenna to aid compliance upon d/c. VITAL SIGNS: See below. NEW TEST RESULTS: CMP wnl, U/A pending Bladder U/S IMPRESSION: Abnormal echogenic area along the posterior urinary bladder wall as described above. Neoplasm cannot be ruled out. Urological consultation is recommended. B/L Renal U/S IMPRESSION: Evidence of mild dilation of the renal pelvis bilaterally. 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 There is no evidence of hydronephrosis. Mild bilateral most likely age-related renal cortical thinning. CURRENT MEDICATIONS: See below. MENTAL STATUS EXAMINATION: General Appearance: unkempt, appears stated age, own clothing Build: average Demeanor: cooperative Eye Contact: good Activity: average Behavior: cooperative, (poor historian) Speech: reg rate, normal volume Mood: more euthymic and appropriate range Mood "doing ok" Affect: less labile, more euthymic Thought Process: more linear and logical, concrete Thought Content (Delusions): less grandiose, denies SI, HI, AVH, delusions Thought Content (Other): less preoccupied, ideas of reference Thought Content (Aggressive): none reported Perception (Hallucinations): none reported Perception (Other): none reported Cognition (Impairment of): improved attention/concentration, ability to abstract Cognition(Intelligence Est.): average Oriented: Awake, Alert, Oriented times three Insight: poor Judgment: Poor Psychosis: improving Associations, Abstract Thinking DIAGNOSES: bipolar 1 d/o mre jimmie w/o psychosis ASSESSMENT: Patient is seen at bedside and reports that her back is hurting her. She reports her mood as "doing ok". 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 She is being followed by urology and will follow up with them outpatient. Per staff she is sleeping well at night and appears less manic. Pt continues to appear less manic today and denies depression, jimmie. She also denies SI, HI, AVH. She is less goal directed. She appears to have improved jimmie on her invega and depakote. Depakote level 105.2 was decreased from 1000 mg to 750mg nightly to decrease level to more therapeutic/safe range. Follow up depakote levels pending. Should improve daytime fatigue as well. States she likes them and is agreeable to invega sustenna im eventually ("anything that helps"). She remains tangential, hyperverbal, poor attention. She remains grandiose talking about regarding planning Xmas green party 07/06 and wants to make sure she goes and keeps telling me. Will continue to monitor for improvement of jimmie with invega and do to pt current Gentro-urinary complaints will not give invega sustenna as it is liver and renal metabolized. Creatine is wnl. She denies SI/HI, hallucinations, delusions. MANAGEMENT PLAN: depakote level in am. Medications: invega 3mg bid depakote 750 mg qhs TIME SPENT: 30 minutes. Vital Signs Vital Signs Date Time Temp Pulse Resp B/P (MAP) Pulse Ox O2 Delivery O2 Flow Rate FiO2 06/24/19 08:47 141/64 06/24/19 06:25 98.0 82 16 06/23/19 07:49 Room Air 06/19/19 10:36 99 Laboratory Data 24H Labs Laboratory Tests 2 06/23/19 12:06: Urine Color YELLOW, Urine Appearance CLEAR, Urine pH 7.0, Urine Specific [place] 1.002, Urine Protein NEGATIVE, Urine Glucose (UA) NEGATIVE, Urine Ketones NEGATIVE, Urine Blood NEGATIVE, Urine Nitrite NEGATIVE, Urine Bilirubin NEGATIVE, Urine Urobilinogen 0.2, Urine Leukocyte Esterase NEGATIVE, Urine WBC (Auto) 2, Urine RBC (Auto) 0, Urine Hyaline Casts (Auto) 0, Urine Bacteria (Auto) 1+H, Urine Squamous Epithelial Cells 1, Urine Mucus (Auto) SMALL, Urine Sperm (Auto) 06/23/19 12:33: Anion Gap 7L, Glomerular Filtration Rate > 60.0, Blood Urea Nitrogen 19H, Creatinine 0.62, Sodium Level 136, Potassium Level 4.2, Chloride Level 104, Carbon Dioxide Level 25, Calcium Level 9.5, Aspartate Amino Transf (AST/SGOT) 2 0, Alanine Aminotransferase (ALT/SGPT) 28, Alkaline Phosphatase 60, Total Bilirubin 0.3, Total Protein 8.0, Albumin 3.3, Albumin/Globulin Ratio 0.70L 06/24/19 09:41: Valproic Acid (Depakene) Level 31.5L CBC/BMP Laboratory Tests 06/23/19 12:33 Calcium Level 9.5, Aspartate Amino Transf (AST/SGOT) 20, Alanine Aminotransferase (ALT/SGPT) 28, Alkaline Phosphatase 60, Total Bilirubin 0.3, Total Protein 8.0, Albumin 3.3 Current Medications Current Medications Medications (Trade) Dose Ordered Sig/Glenny Route PRN Reason Start Time Stop Time Status Last Admin Dose Admin Acetaminophen (Tylenol Tab) 650 mg Q6HP PRN PO HEADACHE or DISCOMFORT 06/18/19 22:45 06/24/19 09:48 Al Hydrox/Mg Hydrox/Simethicone (Mylanta) 30 ml Q4HP PRN PO HEARTBURN/INDIGESTION 06/18/19 22:45 Artificial Tears (Akwa Tears) 2 drop QID OU 06/19/19 21:00 06/24/19 08:48 Bacitracin (Bacitracin Oint) TO RIGHT SIDED FAC... DAILYPRN PRN TOP REDNESS/IRRITATION 06/22/19 11:00 06/23/19 09:49 Calcium/Vitamin D (Oscal D) 1 mg BID PO 06/19/19 09:00 06/20/19 10:10 DC 06/19/19 21:02 Calcium/Vitamin D (Oscal D) 500 mg BID PO 06/20/19 11:00 06/23/19 09:39 Celecoxib (CeleBREX) 100 mg BID PO 06/19/19 09:00 06/24/19 08:47 Divalproex Sodium (Depakote) 750 mg QHS PO 06/21/19 21:00 06/22/19 21:31 Divalproex Sodium (Depakote) 1,000 mg QHS PO 06/19/19 21:00 06/21/19 10:05 DC 06/20/19 21:09 Haloperidol (Haldol) 5 mg Q4HP PRN PO anxiety/agitation 06/19/19 10:30 Heparin Sodium (Porcine) (Heparin) 5,000 units DAILY SQ 06/23/19 09:00 06/24/19 08:51 Heparin Sodium (Porcine) (Heparin) 5,000 units Q8H SQ 06/19/19 22:00 06/22/19 18:55 DC 06/22/19 13:20 Home Med (Med Rec Complete!) ASDIRECTED XX 06/18/19 22:00 06/18/19 21:55 DC Levothyroxine Sodium (Synthroid) 75 mcg DAILY@0600 PO 06/19/19 06:00 06/24/19 05:47 Lorazepam (Ativan) 1 mg BIDP PRN PO ANXIETY/AGITATION 06/18/19 22:45 Cancel Losartan Potassium (Cozaar) 25 mg DAILY PO 06/20/19 09:00 06/24/19 08:47 Magnesium Hydroxide (Milk Of Magnesia) 30 ml DAILYPRN PRN PO CONSTIPATION 06/18/19 22:45 Nystatin (Mycostatin) apply to reena area BID TOP 06/23/19 21:00 06/24/19 09:46 Olanzapine (ZyPREXA ZYDIS) 5 mg Q4HP PRN PO ANXIETY/AGITATION 06/18/19 22:45 Paliperidone (Invega) 3 mg BID PO 06/19/19 21:00 06/24/19 08:45 Pantoprazole Sodium (Protonix) 20 mg DAILY PO 06/20/19 09:00 06/24/19 08:47 Patient Own Medication (Patient'S Own Med) Darifenacin ER PO DAILY... QAM PO 06/20/19 09:00 06/24/19 08:47 Patient Own Medication (Patient'S Own Med) PLACE 1 drop in each ... BID OU 06/19/19 21:00 06/24/19 08:48 Prenat Multivit/ Corporate Event Planner/Iron/Folic Ac ( Vitamins) 1 tab DAILY PO 06/20/19 09:00 06/24/19 08:47 Risperidone (RisperDAL) 1.5 mg QHS PO 06/19/19 21:00 Cancel Simvastatin (Zocor) 20 mg QHS PO 06/19/19 21:00 06/22/19 21:31 Trazodone HCl (Desyrel) 50 mg QHSP PRN PO INSOMNIA 06/18/19 22:45 06/22/19 21:30 Allergies Coded Allergies: tolterodine (Verified Allergy, Unknown, rash, 02/26/19) propoxyphene (Verified Adverse Reaction, Mild, upset stomach, 02/26/19) NIURKA RICHMOND DO Jun 24, 2019 10:47
[2019-06-24 13:11] VITALS: BP 162/77
[2019-06-24 15:40] VITALS: BP 163/72
[2019-06-24] MEDS: SIMVASTATIN 20 MG TAB PO SCH (20:27)
[2019-06-24] MEDS: DIVALPROEX 250 MG TAB PO SCH (20:27)
[2019-06-25] MEDS: LEVOTHYROXINE 75MCG TABLET (0.075MG) PO SCH (06:26)
[2019-06-25 06:41] LABS: HEMATOCRIT 38.6 % (36.0-47.0); HEMOGLOBIN 13.1 g/dl (12.0-15.5); MEAN CORPUSCULAR HGB CONC 33.9 g/dl (32.0-36.5); MEAN CORPUSCULAR VOLUME 94.1 fl (80.0-96.0); PLATELET COUNT, AUTOMATED 224 10^3/uL (150-450); WHITE BLOOD COUNT 7.8 10^3/uL (4.0-10.0)
[2019-06-25 06:58] VITALS: BP 128/72
[2019-06-25] MEDS: HEPARIN SOD (PORCINE) 5000 UNITS/ML VIAL SQ SCH (08:36)
[2019-06-25] MEDS: PANTOPRAZOLE 20 MG TAB PO SCH (08:40)
[2019-06-25] MEDS: CALCIUM/VITAMIN D 500 MG TAB PO SCH ×2 (08:40→20:01)
[2019-06-25] MEDS: PRENATAL VITAMINS CHEWABLE TABLET PO SCH (08:40)
[2019-06-25] MEDS: LOSARTAN 25 MG TAB PO SCH (08:40)
[2019-06-25] MEDS: PALIPERIDONE 3 MG ER TAB (INVEGA) PO SCH ×2 (08:40→20:01)
[2019-06-25] MEDS: NYSTATIN CREAM 15 GM TOP SCH ×2 (08:40→20:02)
[2019-06-25] MEDS: CelecoXIB (CeleBREX) 100 MG CAP PO SCH ×2 (08:40→20:01)
[2019-06-25] MEDS: POLYVINYL ALCOHOL OPHTH SOLN 15 ML(LIQUITEARS) OU SCH ×4 (08:41→20:25)
[2019-06-25] MEDS: DARIFENACIN 7.5 MG PO SCH (08:41)
[2019-06-25] MEDS: [UNRECOGNIZED DRUG - OTHER] OU SCH ×2 (08:43→20:00)
--- NOTE | 2019-06-25 09:08 | MHIPNPDOC ---
[facility] Progress Note Progress Note DATE OF SERVICE: 06/25/19 HISTORY: Patient is a 78 -year-old , female, who is a pt of Dr. Aguero'darnell (missed appt with him 06/17/19) for bipolar d/o last on [facility] for jimmie in 2010 who was brought to ED by PD under 9.41 after pt's daughter called [facility] for assistance to hospitalized pt that was "manic... not stopped talking all day." Per ED, when pt arrived she was manic, hyperverbal with pressured speech, tangential, grandiose "I have all the money in the world," very goal directed (writing xmas cards, wrapping xmas gifts, planning "enormous" xmas constitution party at [facility], talking about pumpkin cookies), hyper-spending $6,000 on items she and her don't need and xmas gifts for other people (per pt's and daughter). Per ED, insight and judgement poor. Pt's and daughter reported that manic symptoms have been worsening for the past 2-3months. Pt reportedly compliant on her outpatient meds (risperidone 1.5mg daily and depakote 1,000mg qhs) and depakote level 77.0 (therapeutic). Pt is a poor historian due to current jimmie and history gathered from previous Hospital records. MSE based on pt status in ED and [facility] prior to haldol administration as when seen for interview was sleeping after haldol given and left sleeping to improve jimmie. Pt per staff, manic and restless this am, very distracted and talkative, grandiose. Provided pt with haldol 5mg q4hr prn anxiety/agitation and give one dose which caused her to fall asleep and remains sleep currently. Pt left slee ping as will help to improve manic symptoms. Pt's outpatient medications appear to be ineffective in treating pt's bipolar d/o as she was compliant on the per the family on admission. Therefore, will continue pt's outpatient depakote for mood stabilization, d/c risperidone, and start invega 3mg bid for bipolar d/o with plan for invega sustenna to aid compliance upon d/c. VITAL SIGNS: See below. NEW TEST RESULTS: CMP wnl, U/A pending. Depakote level 31.5 not therapeutic Bladder U/S IMPRESSION: Abnormal echogenic area along the posterior urinary bladder wall as described above. Neoplasm cannot be ruled out. Urological consultation is recommended. B/L Renal U/S IMPRESSION: Evidence of mild dilation of the renal pelvis bilaterally. 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 There is no evidence of hydronephrosis. Mild bilateral most likely age-related renal cortical thinning. CURRENT MEDICATIONS: See below. MENTAL STATUS EXAMINATION: General Appearance: unkempt, appears stated age, own clothing Build: average Demeanor: cooperative Eye Contact: good Activity: average Behavior: cooperative, (poor historian) Speech: reg rate, normal volume Mood: more euthymic and appropriate range Mood "ok" Affect: less labile, more euthymic Thought Process: more linear and logical, concrete, very goal-directed still with no insight into reckless spending Thought Content (Delusions): less grandiose, denies SI, HI, AVH Thought Content (Other): preoccupied Xmas part 07/06/19, ideas of reference Thought Content (Aggressive): none reported Perception (Hallucinations): none reported Perception (Other): none reported Cognition (Impairment of): improved attention/concentration, ability to abstract Cognition(Intelligence Est.): average Oriented: Awake, Alert, Oriented times three Insight: poor Judgment: Poor Psychosis: improving Associations, Abstract Thinking DIAGNOSES: bipolar 1 d/o mre jimmie w/o psychosis ASSESSMENT: Patient is seen in the office and is very focused on going to her planned Xmas constitution party on 07/06/19 and states "I invited all these people... I have to go... the dania at the [facility] is expecting a check from me for $8,000 to pay for it... I can't cannel it... I'd bet you $10 that the associate juvenile court judge in [place] would believe me". She has absolutely no insight into her reckless spending and her judgement remains compromised. She absolutely refuses to cancel the constitution party stating "it's b/c of those 2 guys and Ashlyn b/c they want me to reschedule it for a later date that they can attend." She is still very goal-directed in her thoughts. She reports her mood as "ok". 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 She is being followed by urology and will follow up with them outpatient. Per staff she is sleeping well at night and appears less manic. Pt continues to appear less manic today and denies depression, jimmie. She also denies SI, HI, AVH. She appears to have improved jimmie on her invega and depakote. Depakote level 105.2 was decreased from 1000 mg to 750mg nightly to decrease level to more therapeutic/safe range. She remains very preoccupied with her Xmas constitution party 07/06/19 at the [facility] and has no insight into reckless spending. She remains grandiose talking about regarding planning Xmas constitution party 07/06 and wants to make sure she goes and keeps telling me. Will continue to monitor for improvement of jimmie with invega and do to pt current Gentro-urinary complaints will not give invega sustenna as it is liver and renal metabolized. Creatine is wnl. She denies SI/HI, hallucinations, delusions. MANAGEMENT PLAN: increase depakote to 1,000mg qhs for jimmie Medications: invega 3mg bid depakote 1000 mg qhs TIME SPENT: 30 minutes. Vital Signs Vital Signs Date Time Temp Pulse Resp B/P (MAP) Pulse Ox O2 Delivery O2 Flow Rate FiO2 06/25/19 08:40 130/72 06/25/19 06:58 98.4 86 14 06/23/19 07:49 Room Air 06/19/19 10:36 99 Laboratory Data 24H Labs Laboratory Tests 2 06/24/19 09:41: Valproic Acid (Depakene) Level 31.5L 06/25/19 06:25: Nucleated Red Blood Cells % (auto) 0.0 CBC/BMP Laboratory Tests 06/25/19 06:25 Red Blood Count 4.10, Mean Corpuscular Volume 94.1, Mean Corpuscular Hemoglobin 32.0, Mean Corpuscular Hemoglobin Concent 33.9, Red Cell Distribution Width 13.2 Current Medications Current Medications Medications (Trade) Dose Ordered Sig/Glenny Route PRN Reason Start Time Stop Time Status Last Admin Dose Admin Acetaminophen (Tylenol Tab) 650 mg Q6HP PRN PO HEADACHE or DISCOMFORT 06/18/19 22:45 06/24/19 16:50 Al Hydrox/Mg Hydrox/Simethicone (Mylanta) 30 ml Q4HP PRN PO HEARTBURN/INDIGESTION 06/18/19 22:45 Artificial Tears (Akwa Tears) 2 drop QID OU 06/19/19 21:00 06/25/19 08:41 Bacitracin (Bacitracin Oint) TO RIGHT SIDED FAC... DAILYPRN PRN TOP REDNESS/IRRITATION 06/22/19 11:00 06/23/19 09:49 Calcium/Vitamin D (Oscal D) 1 mg BID PO 06/19/19 09:00 06/20/19 10:10 DC 06/19/19 21:02 Calcium/Vitamin D (Oscal D) 500 mg BID PO 06/20/19 11:00 06/25/19 08:40 Celecoxib (CeleBREX) 100 mg BID PO 06/19/19 09:00 06/25/19 08:40 Divalproex Sodium (Depakote) 750 mg QHS PO 06/21/19 21:00 06/24/19 20:27 Divalproex Sodium (Depakote) 1,000 mg QHS PO 06/19/19 21:00 06/21/19 10:05 DC 06/20/19 21:09 Haloperidol (Haldol) 5 mg Q4HP PRN PO anxiety/agitation 06/19/19 10:30 Heparin Sodium (Porcine) (Heparin) 5,000 units DAILY SQ 06/23/19 09:00 06/25/19 08:36 Heparin Sodium (Porcine) (Heparin) 5,000 units Q8H SQ 06/19/19 22:00 06/22/19 18:55 DC 06/22/19 13:20 Home Med (Med Rec Complete!) ASDIRECTED XX 06/18/19 22:00 06/18/19 21:55 DC Levothyroxine Sodium (Synthroid) 75 mcg DAILY@0600 PO 06/19/19 06:00 06/25/19 06:26 Lorazepam (Ativan) 1 mg BIDP PRN PO ANXIETY/AGITATION 06/18/19 22:45 Cancel Losartan Potassium (Cozaar) 25 mg DAILY PO 06/20/19 09:00 06/25/19 08:40 Magnesium Hydroxide (Milk Of Magnesia) 30 ml DAILYPRN PRN PO CONSTIPATION 06/18/19 22:45 Nystatin (Mycostatin) apply to reena area BID TOP 06/23/19 21:00 06/25/19 08:40 Olanzapine (ZyPREXA ZYDIS) 5 mg Q4HP PRN PO ANXIETY/AGITATION 06/18/19 22:45 Paliperidone (Invega) 3 mg BID PO 06/19/19 21:00 06/25/19 08:40 Pantoprazole Sodium (Protonix) 20 mg DAILY PO 06/20/19 09:00 06/25/19 08:40 Patient Own Medication (Patient'S Own Med) Darifenacin ER PO DAILY... QAM PO 06/20/19 09:00 06/25/19 08:41 Patient Own Medication (Patient'S Own Med) PLACE 1 drop in each ... BID OU 06/19/19 21:00 06/25/19 08:43 Prenat Multivit/ [employer]/Iron/Folic Ac ( Vitamins) 1 tab DAILY PO 06/20/19 09:00 06/25/19 08:40 Risperidone (RisperDAL) 1.5 mg QHS PO 06/19/19 21:00 Cancel Simvastatin (Zocor) 20 mg QHS PO 06/19/19 21:00 06/24/19 20:27 Trazodone HCl (Desyrel) 50 mg QHSP PRN PO INSOMNIA 06/18/19 22:45 06/22/19 21:30 Allergies Coded Allergies: tolterodine (Verified Allergy, Unknown, rash, 02/26/19) propoxyphene (Verified Adverse Reaction, Mild, upset stomach, 02/26/19) NIURKA TAVERA DO Jun 25, 2019 9:08 am
[2019-06-25] MEDS: ACETAMINOPHEN TAB 650MG DOSE (2X325MG) PO PRN ×2 (12:25→20:24)
[2019-06-25 12:31] VITALS: BP 132/70
[2019-06-25 16:07] VITALS: BP 133/66
[2019-06-25] MEDS: DIVALPROEX 500 MG TAB PO SCH (20:01)
[2019-06-25] MEDS: SIMVASTATIN 20 MG TAB PO SCH (20:01)
[2019-06-26] MEDS: LEVOTHYROXINE 75MCG TABLET (0.075MG) PO SCH (06:05)
[2019-06-26 06:24] VITALS: BP 146/72
[2019-06-26] MEDS: PRENATAL VITAMINS CHEWABLE TABLET PO SCH (09:34)
[2019-06-26] MEDS: NYSTATIN CREAM 15 GM TOP SCH ×2 (09:34→21:58)
[2019-06-26] MEDS: HEPARIN SOD (PORCINE) 5000 UNITS/ML VIAL SQ SCH (09:34)
[2019-06-26] MEDS: POLYVINYL ALCOHOL OPHTH SOLN 15 ML(LIQUITEARS) OU SCH ×4 (09:35→21:57)
[2019-06-26] MEDS: [UNRECOGNIZED DRUG - OTHER] OU SCH ×2 (09:35→21:58)
[2019-06-26] MEDS: PANTOPRAZOLE 20 MG TAB PO SCH (09:35)
[2019-06-26] MEDS: DARIFENACIN 7.5 MG PO SCH (09:35)
[2019-06-26] MEDS: CelecoXIB (CeleBREX) 100 MG CAP PO SCH ×2 (09:36→21:58)
[2019-06-26] MEDS: CALCIUM/VITAMIN D 500 MG TAB PO SCH ×2 (09:36→21:58)
[2019-06-26] MEDS: LOSARTAN 25 MG TAB PO SCH (09:36)
[2019-06-26] MEDS: PALIPERIDONE 3 MG ER TAB (INVEGA) PO SCH ×2 (09:36→21:58)
[2019-06-26] MEDS: ACETAMINOPHEN TAB 650MG DOSE (2X325MG) PO PRN ×2 (09:42→21:57)
--- NOTE | 2019-06-26 09:50 | MHIPNPDOC ---
[facility] Progress Note Progress Note DATE OF SERVICE: 06/26/19 HISTORY: Patient is a 78 -year-old , female, who is a pt of Dr. Aguero'darnell (missed appt with him 06/17/19) for bipolar d/o last on [facility] for jimmie in 2010 who was brought to ED by PD under 9.41 after pt's daughter called [facility] for assistance to hospitalized pt that was "manic... not stopped talking all day." Per ED, when pt arrived she was manic, hyperverbal with pressured speech, tangential, grandiose "I have all the money in the world," very goal directed (writing xmas cards, wrapping xmas gifts, planning "enormous" xmas libertarian at [facility], talking about pumpkin cookies), hyper-spending $6,000 on items she and her don't need and xmas gifts for other people (per pt's and daughter). Per ED, insight and judgement poor. Pt's and daughter reported that manic symptoms have been worsening for the past 2-3months. Pt reportedly compliant on her outpatient meds (risperidone 1.5mg daily and dep akote 1,000mg qhs) and depakote level 77.0 (therapeutic). Pt is a poor historian due to current jimmie and history gathered from previous Hospital records. MSE based on pt status in ED and [facility] prior to haldol administration as when seen for interview was sleeping after haldol given and left sleeping to improve jimmie. Pt per staff, manic and restless this am, very distracted and talkative, grandiose. Provided pt with haldol 5mg q4hr prn anxiety/agitation and give one dose which caused her to fall asleep and remains sleep currently. Pt left sleeping as will help to improve manic symptoms. Pt's outpatient medications appear to be ineffective in treating pt's bipolar d/o as she was compliant on the per the family on admission. Therefore, will continue pt's outpatient depakote for mood stabilization, d/c risperidone, and start invega 3mg bid for bipolar d/o with plan for invega sustenna to aid compliance upon d/c. VITAL SIGNS: See below. NEW TEST RESULTS: CMP wnl, U/A pending. Depakote level 31.5 not therapeutic Bladder U/S IMPRESSION: Abnormal echogenic area along the posterior urinary bladder wall as described above. Neoplasm cannot be ruled out. Urological consultation is recommended. B/L Renal U/S IMPRESSION: Evidence of mild dilation of the renal pelvis bilaterally. 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 There is no evidence of hydronephrosis. Mild bilateral most likely age-related renal cortical thinning. CURRENT MEDICATIONS: See below. MENTAL STATUS EXAMINATION: General Appearance: unkempt, appears stated age, own clothing Build: average Demeanor: cooperative Eye Contact: good Activity: average Behavior: cooperative, (poor historian) Speech: reg rate, normal volume Mood: more euthymic and appropriate range Mood "ok" Affect: less labile, more euthymic Thought Process: more linear and logical, concrete, very goal-directed still with no insight into reckless spending Thought Content (Delusions): less grandiose, denies SI, HI, AVH Thought Content (Other): preoccupied Xmas part 07/06/19, ideas of reference Thought Content (Aggressive): none reported Perception (Hallucinations): none reported Perception (Other): none reported Cognition (Impairment of): improved attention/concentration, ability to abstract Cognition(Intelligence Est.): average Oriented: Awake, Alert, Oriented times three Insight: poor Judgment: Poor Psychosis: improving Associations, Abstract Thinking DIAGNOSES: bipolar 1 d/o mre jimmie w/o psychosis ASSESSMENT: Patient is seen in day room having a peer pt aid her in filling out her daily menu which he asked me to help as he has a foreign accent and refused to accept my help wanting him to help her. Pt's family cancelled her Xmas libertarian this month and pt appears very upset and angry about it. Voiced anger regarding her who is very supportive of her stating he cheating and she wants a divorce after being seen yesterday. Per family, that is not true. pt states she is tolerating her increase in depakote and slept well last night. Continues to have very goal directed thoughts and disregard to her reckless spending as she doesn't think it's a problem. She is being followed by urology and will follow up with them outpatient. Per staff she is sleeping well at night. Pt continues to appear less manic overall although still very goal directed and denies depression. She also denies SI, HI, AVH. She appears to have improved jimmie on her invega and depakote. Will continue to monitor for improvement of jimmie with invega and do to pt current Gentro-urinary complaints will not give invega sustenna as it is liver and renal metabolized. Creatine is wnl. She denies SI/HI, hallucinations, delusions. MANAGEMENT PLAN: continue plan Medications: invega 3mg bid depakote 1000 mg qhs TIME SPENT: 30 minutes. Vital Signs Vital Signs Date Time Temp Pulse Resp B/P (MAP) Pulse Ox O2 Delivery O2 Flow Rate FiO2 06/26/19 08:27 Room Air 06/26/19 06:24 97.0 78 14 146/72 (96) Current Medications Current Medications Medications (Trade) Dose Ordered Sig/Glenny Route PRN Reason Start Time Stop Time Status Last Admin Dose Admin Acetaminophen (Tylenol Tab) 650 mg Q6HP PRN PO HEADACHE or DISCOMFORT 06/18/19 22:45 06/25/19 20:24 Al Hydrox/Mg Hydrox/Simethicone (Mylanta) 30 ml Q4HP PRN PO HEARTBURN/INDIGESTION 06/18/19 22:45 Artificial Tears (Akwa Tears) 2 drop QID OU 06/19/19 21:00 06/25/19 20:25 Bacitracin (Bacitracin Oint) TO RIGHT SIDED FAC... DAILYPRN PRN TOP REDNESS/IRRITATION 06/22/19 11:00 06/23/19 09:49 Calcium/Vitamin D (Oscal D) 1 mg BID PO 06/19/19 09:00 06/20/19 10:10 DC 06/19/19 21:02 Calcium/Vitamin D (Oscal D) 500 mg BID PO 06/20/19 11:00 06/25/19 20:01 Celecoxib (CeleBREX) 100 mg BID PO 06/19/19 09:00 06/25/19 20:01 Divalproex Sodium (Depakote) 750 mg QHS PO 06/21/19 21:00 06/25/19 09:08 DC 06/24/19 20:27 Divalproex Sodium (Depakote) 1,000 mg QHS PO 06/25/19 21:00 06/25/19 20:01 Divalproex Sodium (Depakote) 1,000 mg QHS PO 06/19/19 21:00 06/21/19 10:05 DC 06/20/19 21:09 Haloperidol (Haldol) 5 mg Q4HP PRN PO anxiety/agitation 06/19/19 10:30 Heparin Sodium (Porcine) (Heparin) 5,000 units DAILY SQ 06/23/19 09:00 06/25/19 08:36 Heparin Sodium (Porcine) (Heparin) 5,000 units Q8H SQ 06/19/19 22:00 06/22/19 18:55 DC 06/22/19 13:20 Home Med (Med Rec Complete!) ASDIRECTED XX 06/18/19 22:00 06/18/19 21:55 DC Levothyroxine Sodium (Synthroid) 75 mcg DAILY@0600 PO 06/19/19 06:00 06/26/19 06:05 Lorazepam (Ativan) 1 mg BIDP PRN PO ANXIETY/AGITATION 06/18/19 22:45 Cancel Losartan Potassium (Cozaar) 25 mg DAILY PO 06/20/19 09:00 06/25/19 08:40 Magnesium Hydroxide (Milk Of Magnesia) 30 ml DAILYPRN PRN PO CONSTIPATION 06/18/19 22:45 Nystatin (Mycostatin) apply to reena area BID TOP 06/23/19 21:00 06/25/19 20:02 Olanzapine (ZyPREXA ZYDIS) 5 mg Q4HP PRN PO ANXIETY/AGITATION 06/18/19 22:45 Paliperidone (Invega) 3 mg BID PO 06/19/19 21:00 06/25/19 20:01 Pantoprazole Sodium (Protonix) 20 mg DAILY PO 06/20/19 09:00 06/25/19 08:40 Patient Own Medication (Patient'S Own Med) Darifenacin ER PO DAILY... QAM PO 06/20/19 09:00 06/25/19 08:41 Patient Own Medication (Patient'S Own Med) PLACE 1 drop in each ... BID OU 06/19/19 21:00 06/25/19 20:00 Prenat Multivit/ [place]/Iron/Folic Ac ( Vitamins) 1 tab DAILY PO 06/20/19 09:00 06/25/19 08:40 Risperidone (RisperDAL) 1.5 mg QHS PO 06/19/19 21:00 Cancel Simvastatin (Zocor) 20 mg QHS PO 06/19/19 21:00 06/25/19 20:01 Trazodone HCl (Desyrel) 50 mg QHSP PRN PO INSOMNIA 06/18/19 22:45 06/22/19 21:30 Allergies Coded Allergies: tolterodine (Verified Allergy, Unknown, rash, 02/26/19) propoxyphene (Verified Adverse Reaction, Mild, upset stomach, 02/26/19) NIURKA RICHMOND DO Jun 26, 2019 9:50 am
[2019-06-26 12:31] VITALS: BP 147/72
[2019-06-26 16:12] VITALS: BP 142/68
[2019-06-26] MEDS: SIMVASTATIN 20 MG TAB PO SCH (21:57)
[2019-06-26] MEDS: DIVALPROEX 500 MG TAB PO SCH (21:58)
[2019-06-26 22:18] VITALS: BP 167/81
[2019-06-27] MEDS: LEVOTHYROXINE 75MCG TABLET (0.075MG) PO SCH (06:04)
[2019-06-27 06:24] VITALS: BP 150/68
--- NOTE | 2019-06-27 09:36 | MHIPNPDOC ---
[facility] Progress Note Progress Note DATE OF SERVICE: 06/27/19 HISTORY: Patient is a 78 -year-old , female, who is a pt of Dr. Aguero'darnell (missed appt with him 06/17/19) for bipolar d/o last on [facility] for jimmie in 2010 who was brought to ED by PD under 9.41 after pt's daughter called [facility] for assistance to hospitalized pt that was "manic... not stopped talking all day." Per ED, when pt arrived she was manic, hyperverbal with pressured speech, tangential, grandiose "I have all the money in the world," very goal directed (writing xmas cards, wrapping xmas gifts, planning "enormous" [facility], talking about pumpkin cookies), hyper-spending $6,000 on items she and her don't need and xmas gifts for other people (per pt's and daughter). Per ED, insight and judgement poor. Pt's and daughter reported that manic symptoms have been worsening for the past 2-3months. Pt reportedly compliant on her outpatient meds (risperidone 1.5mg daily and dep akote 1,000mg qhs) and depakote level 77.0 (therapeutic). Pt is a poor historian due to current jimmie and history gathered from previous Hospital records. MSE based on pt status in ED and [facility] prior to haldol administration as when seen for interview was sleeping after haldol given and left sleeping to improve jimmie. Pt per staff, manic and restless this am, very distracted and talkative, grandiose. Provided pt with haldol 5mg q4hr prn anxiety/agitation and give one dose which caused her to fall asleep and remains sleep currently. Pt left sleeping as will help to improve manic symptoms. Pt's outpatient medications appear to be ineffective in treating pt's bipolar d/o as she was compliant on the per the family on admission. Therefore, will continue pt's outpatient depakote for mood stabilization, d/c risperidone, and start invega 3mg bid for bipolar d/o with plan for invega sustenna to aid compliance upon d/c. VITAL SIGNS: See below. NEW TEST RESULTS: CMP wnl, U/A pending. Depakote level 31.5 not therapeutic Bladder U/S IMPRESSION: Abnormal echogenic area along the posterior urinary bladder wall as described above. Neoplasm cannot be ruled out. Urological consultation is recommended. B/L Renal U/S IMPRESSION: Evidence of mild dilation of the renal pelvis bilaterally. 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 There is no evidence of hydronephrosis. Mild bilateral most likely age-related renal cortical thinning. CURRENT MEDICATIONS: See below. MENTAL STATUS EXAMINATION: General Appearance: unkempt, appears stated age, own clothing Build: average Demeanor: cooperative Eye Contact: good Activity: average Behavior: cooperative, (poor historian) Speech: reg rate, normal volume Mood: more euthymic and appropriate range Mood "ok" Affect: less labile, more euthymic Thought Process: more linear and logical, concrete, very goal-directed still with no insight into reckless spending Thought Content (Delusions): less grandiose, denies SI, HI, AVH Thought Content (Other): preoccupied Xmas part 07/06/19, ideas of reference Thought Content (Aggressive): none reported Perception (Hallucinations): none reported Perception (Other): none reported Cognition (Impairment of): improved attention/concentration, ability to abstract Cognition(Intelligence Est.): average Oriented: Awake, Alert, Oriented times three Insight: poor Judgment: Poor Psychosis: improving Associations, Abstract Thinking DIAGNOSES: bipolar 1 d/o mre jimmie w/o psychosis ASSESSMENT: Patient is seen in office stating she's doing well with good sleep and appetite. Asked pt about her thoughts on wanting to "adopt," "take home" some of the young milirtary men on the unit and stated "I've given that idea up... we're just friends." Asked her about her thoughts regarding her family cancelling her Xmas green party and stated "I know it was the right thing to do... I'm ok with it." She appears much less goal directed with more logical and linear thoughts with less grandiose thoughts. She appears more able to understand cons equences for her actions. She is being followed by urology and will follow up with them outpatient. Per staff she is sleeping well at night. Pt continues to appear less manic overall although still very goal directed and denies depression. She also denies SI, HI, AVH. She appears to have improved jimmie on her invega and increased depakote. Will get depakote level in am. Will con tinue to monitor for improvement of jimmie with invega and do to pt current Gentro-urinary complaints will not give invega sustenna as it is liver and renal metabolized. Creatine is wnl. Will have pt family try to visit her today so determine if she's at her baseline and capable of being d/c home tomorrow. She denies SI/HI, hallucinations, delusions. MANAGEMENT PLAN: continue plan. Request family to visit pt. Medications: invega 3mg bid depakote 1000 mg qhs TIME SPENT: 30 minutes. Vital Signs Vital Signs Date Time Temp Pulse Resp B/P (MAP) Pulse Ox O2 Delivery O2 Flow Rate FiO2 06/27/19 06:24 96.0 93 16 150/68 (95) 06/26/19 08:27 Room Air Current Medications Current Medications Medications (Trade) Dose Ordered Sig/Glenny Route PRN Reason Start Time Stop Time Status Last Admin Dose Admin Acetaminophen (Tylenol Tab) 650 mg Q6HP PRN PO HEADACHE or DISCOMFORT 06/18/19 22:45 06/26/19 21:57 Al Hydrox/Mg Hydrox/Simethicone (Mylanta) 30 ml Q4HP PRN PO HEARTBURN/INDIGESTION 06/18/19 22:45 Artificial Tears (Akwa Tears) 2 drop QID OU 06/19/19 21:00 06/26/19 21:57 Bacitracin (Bacitracin Oint) TO RIGHT SIDED FAC... DAILYPRN PRN TOP REDNESS/IRRITATION 06/22/19 11:00 06/23/19 09:49 Calcium/Vitamin D (Oscal D) 1 mg BID PO 06/19/19 09:00 06/20/19 10:10 DC 06/19/19 21:02 Calcium/Vitamin D (Oscal D) 500 mg BID PO 06/20/19 11:00 06/26/19 21:58 Celecoxib (CeleBREX) 100 mg BID PO 06/19/19 09:00 06/26/19 21:58 Divalproex Sodium (Depakote) 750 mg QHS PO 06/21/19 21:00 06/25/19 09:08 DC 06/24/19 20:27 Divalproex Sodium (Depakote) 1,000 mg QHS PO 06/25/19 21:00 06/26/19 21:58 Divalproex Sodium (Depakote) 1,000 mg QHS PO 06/19/19 21:00 06/21/19 10:05 DC 06/20/19 21:09 Haloperidol (Haldol) 5 mg Q4HP PRN PO anxiety/agitation 06/19/19 10:30 Heparin Sodium (Porcine) (Heparin) 5,000 units DAILY SQ 06/23/19 09:00 06/26/19 09:34 Heparin Sodium (Porcine) (Heparin) 5,000 units Q8H SQ 06/19/19 22:00 06/22/19 18:55 DC 06/22/19 13:20 Home Med (Med Rec Complete!) ASDIRECTED XX 06/18/19 22:00 06/18/19 21:55 DC Levothyroxine Sodium (Synthroid) 75 mcg DAILY@0600 PO 06/19/19 06:00 06/27/19 06:04 Lorazepam (Ativan) 1 mg BIDP PRN PO ANXIETY/AGITATION 06/18/19 22:45 Cancel Losartan Potassium (Cozaar) 25 mg DAILY PO 06/20/19 09:00 06/26/19 09:36 Magnesium Hydroxide (Milk Of Magnesia) 30 ml DAILYPRN PRN PO CONSTIPATION 06/18/19 22:45 Nystatin (Mycostatin) apply to reena area BID TOP 06/23/19 21:00 06/26/19 21:58 Olanzapine (ZyPREXA ZYDIS) 5 mg Q4HP PRN PO ANXIETY/AGITATION 06/18/19 22:45 Paliperidone (Invega) 3 mg BID PO 06/19/19 21:00 06/26/19 21:58 Pantoprazole Sodium (Protonix) 20 mg DAILY PO 06/20/19 09:00 06/26/19 09:35 Patient Own Medication (Patient'S Own Med) Darifenacin ER PO DAILY... QAM PO 06/20/19 09:00 06/26/19 09:35 Patient Own Medication (Patient'S Own Med) PLACE 1 drop in each ... BID OU 06/19/19 21:00 06/26/19 21:58 Prenat Multivit/ Plating Stripper/Iron/Folic Ac ( Vitamins) 1 tab DAILY PO 06/20/19 09:00 06/26/19 09:34 Risperidone (RisperDAL) 1.5 mg QHS PO 06/19/19 21:00 Cancel Simvastatin (Zocor) 20 mg QHS PO 06/19/19 21:00 06/26/19 21:57 Trazodone HCl (Desyrel) 50 mg QHSP PRN PO INSOMNIA 06/18/19 22:45 06/22/19 21:30 Allergies Coded Allergies: tolterodine (Verified Allergy, Unknown, rash, 02/26/19) propoxyphene (Verified Adverse Reaction, Mild, upset stomach, 02/26/19) NIURKA RICHMOND DO Jun 27, 2019 9:36 am
[2019-06-27] MEDS: PALIPERIDONE 3 MG ER TAB (INVEGA) PO SCH ×2 (10:02→21:10)
[2019-06-27] MEDS: DARIFENACIN 7.5 MG PO SCH (10:03)
[2019-06-27] MEDS: CALCIUM/VITAMIN D 500 MG TAB PO SCH ×2 (10:05→21:09)
[2019-06-27] MEDS: LOSARTAN 25 MG TAB PO SCH (10:06)
[2019-06-27] MEDS: PRENATAL VITAMINS CHEWABLE TABLET PO SCH (10:06)
[2019-06-27] MEDS: PANTOPRAZOLE 20 MG TAB PO SCH (10:07)
[2019-06-27] MEDS: CelecoXIB (CeleBREX) 100 MG CAP PO SCH ×2 (10:07→21:09)
[2019-06-27] MEDS: HEPARIN SOD (PORCINE) 5000 UNITS/ML VIAL SQ SCH (10:08)
[2019-06-27] MEDS: POLYVINYL ALCOHOL OPHTH SOLN 15 ML(LIQUITEARS) OU SCH ×4 (11:33→21:09)
[2019-06-27] MEDS: [UNRECOGNIZED DRUG - OTHER] OU SCH ×2 (11:34→21:21)
[2019-06-27] MEDS: BACITRACIN OINT 30GM TOP PRN (11:35)
[2019-06-27] MEDS: NYSTATIN CREAM 15 GM TOP SCH ×2 (11:35→21:00)
[2019-06-27 12:00] VITALS: BP 150/71
[2019-06-27 17:46] VITALS: BP 147/65
[2019-06-27] MEDS: DIVALPROEX 500 MG TAB PO SCH (21:10)
[2019-06-27] MEDS: SIMVASTATIN 20 MG TAB PO SCH (21:10)
[2019-06-28] MEDS: LEVOTHYROXINE 75MCG TABLET (0.075MG) PO SCH (06:12)
[2019-06-28 06:37] VITALS: BP 130/74
[2019-06-28 07:42] LABS: HEMATOCRIT 42.7 % (36.0-47.0); HEMOGLOBIN 14.3 g/dl (12.0-15.5); MEAN CORPUSCULAR HEMOGLOBIN 31.3 pg (27.0-33.0); MEAN CORPUSCULAR HGB CONC 33.5 g/dl (32.0-36.5); MEAN CORPUSCULAR VOLUME 93.4 fl (80.0-96.0); PLATELET COUNT, AUTOMATED 272 10^3/uL (150-450); RED BLOOD COUNT 4.57 10^6/uL (4.00-5.40); WHITE BLOOD COUNT 8.1 10^3/uL (4.0-10.0)
[2019-06-28] MEDS: HEPARIN SOD (PORCINE) 5000 UNITS/ML VIAL SQ SCH (08:59)
[2019-06-28] MEDS: [UNRECOGNIZED DRUG - OTHER] OU SCH (09:01)
[2019-06-28] MEDS: POLYVINYL ALCOHOL OPHTH SOLN 15 ML(LIQUITEARS) OU SCH ×2 (09:01→12:15)
[2019-06-28 09:03] VITALS: BP 145/64
[2019-06-28] MEDS: PRENATAL VITAMINS CHEWABLE TABLET PO SCH (09:03)
[2019-06-28] MEDS: PANTOPRAZOLE 20 MG TAB PO SCH (09:03)
[2019-06-28] MEDS: DARIFENACIN 7.5 MG PO SCH (09:03)
[2019-06-28] MEDS: PALIPERIDONE 3 MG ER TAB (INVEGA) PO SCH (09:03)
[2019-06-28] MEDS: LOSARTAN 25 MG TAB PO SCH (09:03)
[2019-06-28] MEDS: CelecoXIB (CeleBREX) 100 MG CAP PO SCH (09:03)
[2019-06-28] MEDS: CALCIUM/VITAMIN D 500 MG TAB PO SCH (09:04)
[2019-06-28] MEDS: NYSTATIN CREAM 15 GM TOP SCH (09:04)
[2019-06-28] MEDS: BACITRACIN OINT 30GM TOP PRN (09:08)
[2019-06-28] MEDS ORDERED: PALI1TAB2 PO (09:29)
[2019-06-28] MEDS ORDERED: DEPA1TAB3 PO (09:29)
--- NOTE | 2019-06-28 09:29 | MHDSPDOC ---
[facility] Discharge Summary Discharge Summary DATE OF ADMISSION: Jun 18, 2019 at 22:43 DATE OF DISCHARGE: Jun 28, 2019 DISCHARGE DIAGNOSES: bipolar 1 d/o mre jimmie w/o psychosis REASON FOR ADMISSION: Patient is a 78 -year-old , female, who is a pt of Dr. Rothman (missed appt with him 06/17/19) for bipolar d/o last on [facility] for jimmie in 2010 who was brought to ED by PD under 9.41 after pt's daughter called [facility] for assistance to hospitalized pt that was "manic... not stopped talking all day." Per ED, when pt arrived she was manic, hyperverbal with pressured speech, tangential, grandiose "I have all the money in the world," very goal directed (writing xmas cards, wrapping xmas gifts, planning "enormous" xmas republican at [facility], talking about pumpkin cookies), hyper-spending $6,000 on items she and her don't need and xmas gifts for other people (per pt's and daughter). Per ED, insight and judgement poor. Pt's and daughter r eported that manic symptoms have been worsening for the past 2-3months. Pt reportedly compliant on her outpatient meds (risperidone 1.5mg daily and depakote 1,000mg qhs) and depakote level 77.0 (therapeutic). Pt is a poor historian due to current jimmie and history gathered from previous Hospital records. MSE based on pt status in ED and [facility] prior to haldol administration as when see n for interview was sleeping after haldol given and left sleeping to improve jimmie. Pt per staff, manic and restless this am, very distracted and talkative, grandiose. Provided pt with haldol 5mg q4hr prn anxiety/agitation and give one dose which caused her to fall asleep and remains sleep currently. Pt left sleeping as will help to improve manic symptoms. Pt's outpatient medications appear to be ineffective in treating pt's bipolar d/o as she was compliant on the per the family on admission. Therefore, will continue pt's outpatient depakote for mood stabilization, d/c risperidone, and start invega 3mg bid for bipolar d/o with plan for invega sustenna to aid compliance upon d/c. CONSULTANTS INVOLVED: none TEST RESULTS: CMP wnl, U/A pending. Depakote level 60.5 not therapeutic Bladder U/S IMPRESSION: Abnormal echogenic area along the posterior urinary bladder wall as described above. Neoplasm cannot be ruled out. Urological consultation is recommended. B/L Renal U/S IMPRESSION: Evidence of mild dilation of the renal pelvis bilaterally. 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 There is no evidence of hydronephrosis. Mild bilateral most likely age-related renal cortical thinning. TREATMENT AND PROGRESS ON THE UNIT : Pt was admitted to [facility], seen for psychiatric assessment and restarted on her outpatient depakote 1,000mg qhs. She was started on invega 3mg bid for bipolar d/o. She was provided trazodone 50mg qhs prn insomnia. Pt found her medications beneficial and tolerated them well. She attended groups daily during her stay. Her symptoms improved with treatment. On day of discharge she denied depression, anxiety, insomnia, jimmie, SI/HI, hallucinations, delusions. She was discharged home after family meeting with her with follow-up at [facility], Dr. Aguero. She felt safe for discharge. DISCHARGE ASSESSMENT: Patient is seen in office stating she's doing well with good sleep and appetite. She appears euthymic, full range, and appropriate. She no longer voicing very goal directed thoughts and is logical and linear t houghts, no longer having grandiose thoughts. She endorses ability to understand consequences for her actions. She is being followed by urology and will follow up with them outpatient. Per staff she is sleeping well at night. She denies depression, anxiety, insomnia, jimmie, SI/HI, hallucinations, delusions. Feels safe to d/c home with family today. MENTAL STATUS EXAMINATION ON DISCHARGE: General Appearance: clean, appears stated age, own clothing Build: average Demeanor: cooperative Eye Contact: good Activity: average Behavior: cooperative Speech: reg rate, normal volume Mood: more euthymic and appropriate range Mood "good" Affect: euthymic, appropriate Thought Process: linear and logical Thought Content (Delusions): less grandiose, denies SI, HI, AVH Thought Content (Other): none reported Thought Content (Aggressive): none reported Perception (Hallucinations): none reported Perception (Other): none reported Cognition (Impairment of): none reported Cognition(Intelligence Est.): average Oriented: Awake, Alert, Oriented times three Insight: good Judgment: good Psychosis: none reported MEDICATIONS ON DISCHARGE: invega 3mg bid depakote 1000 mg qhs PLAN/FOLLOWUP ARRANGEMENTS: D/c home with follow with Dr. Aguero at [facility] and urology. The amount of time spent in the coordination of care for this patient was approximately 30 minutes. Vital Signs/I&Os Vital Signs Date Time Temp Pulse Resp B/P (MAP) Pulse Ox O2 Delivery O2 Flow Rate FiO2 06/28/19 09:03 145/64 06/28/19 06:37 97.0 80 14 06/26/19 08:27 Room Air Laboratory Data Labs 24H Laboratory Tests 2 06/27/19 13:02: Valproic Acid (Depakene) Level 60.5 06/28/19 07:10: Nucleated Red Blood Cells % (auto) 0.0 CBC/BMP Laboratory Tests 06/28/19 07:10 Medications Scheduled Anastrozole (Anastrozole) 1 Mg Tablet, 1 MG PO DAILY, (Reported) Buspirone HCl (Buspirone HCl) 5 Mg Tablet, 5 MG PO BID, (Reported) Calcium Carbonate/Vitamin D3 (Calcium 600 + Vit D 400 Softgl) 1 Each Capsule, 1 CAP PO BID, (Reported) Celecoxib (Celebrex) 100 Mg Capsule, 100 MG PO BID, (Reported) Cyclosporine (Restasis) 0.05 % Emu, 1 DROP OU BID, (Reported) Darifenacin Hydrobromide (Enablex) 7.5 Mg Tab, 7.5 MG PO DAILY, (Reported) Divalproex Sodium (Divalproex Sodium ER) 500 Mg Tab.er.24h, 500 MG PO DAILY, (Reported) Folic Acid/Multivit,Iron,Choctaw (One Daily For Women Tablet) 1 Tab Tab, 1 TAB PO DAILY, (Reported) Levothyroxine Sodium (Levothyroxine Sodium) 75 Mcg Tablet, 75 MCG PO DAILY, (Reported) Risperidone (Risperidone) 0.5 Mg Tablet, 0.5 MG PO DAILY, (Reported) Simvastatin (Simvastatin) 20 Mg Tab, 20 MG PO QHS, (Reported) Allergies Coded Allergies: tolterodine (Verified Allergy, Unknown, rash, 02/26/19) propoxyphene (Verified Adverse Reaction, Mild, upset stomach, 02/26/19) NIURKA RICHMOND DO Jun 28, 2019 09:29
[2019-06-28] MEDS: ACETAMINOPHEN TAB 650MG DOSE (2X325MG) PO PRN (12:14)
== END 2019-06-28 16:05 | disposition home or self-care (01) | DRG 885 ==
LOC: M ED 18:43 → M ED INP 22:43 → M PSY 06-19 00:21
PROVIDERS: ADMIT Psychiatry & Neurology Psychiatry; ATTEND Psychiatry & Neurology Psychiatry
DX: F31.10 Bipolar disorder, current episode manic without psychotic features, unspecified (principal); Z79.899 Other long term (current) drug therapy; Z88.8 Allergy status to other drugs, medicaments and biological substances; Z87.891 Personal history of nicotine dependence; I10 Essential (primary) hypertension; E11.9 Type 2 diabetes mellitus without complications; E03.9 Hypothyroidism, unspecified; M81.0 Age-related osteoporosis without current pathological fracture; E78.5 Hyperlipidemia, unspecified; K59.00 Constipation, unspecified; Z85.3 Personal history of malignant neoplasm of breast

== ENCOUNTER 2019-07-03 15:26 | Emergency (ER) | payer MEDICARE, OTHER ==
[~2019-07-03] VITALS: Ht 152.4 cm; Wt 67.7 kg
[2019-07-03 15:26] VITALS: BP 138/90
[~2019-07-03 15:26] MED LIST changes: +PALI1TAB2 PO
[2019-07-03] MEDS ORDERED: AFRI0.058 (16:08)
== END 2019-07-03 16:30 | disposition home or self-care (01) ==
LOC: M ED 15:26
DX: R04.0 Epistaxis (principal); K21.9 Gastro-esophageal reflux disease without esophagitis; E11.9 Type 2 diabetes mellitus without complications; F41.9 Anxiety disorder, unspecified; F32.9 Major depressive disorder, single episode, unspecified; Z88.8 Allergy status to other drugs, medicaments and biological substances; Z79.899 Other long term (current) drug therapy

== ENCOUNTER → 2019-07-16 | Outpatient (REF) | payer MEDICARE, OTHER ==
[~2019-07-16] MED LIST changes: +AFRI0.058
== END ==
LOC: M SMT 12:36
PROVIDERS: ATTEND Urology
DX: Z01.818 Encounter for other preprocedural examination (principal); D49.4 Neoplasm of unspecified behavior of bladder; N39.0 Urinary tract infection, site not specified

== ENCOUNTER → 2019-07-16 | Outpatient (REF) | payer MEDICARE, OTHER ==
[2019-07-16 13:41] LABS: INR 1.04; PROTHROMBIN TIME 13.3 SECONDS (11.8-14.0)
[2019-07-16 13:42] LABS: PARTIAL THROMBOPLASTIN TIME 27.8 SECONDS (25.0-38.4)
[2019-07-16 13:57] LABS: HEMOGLOBIN A1c 6.8 %
[2019-07-16 14:00] LABS: ALBUMIN 3.3 GM/DL (3.2-5.2); ALT/SGPT 20 U/L (12-78); BILIRUBIN,TOTAL 0.3 MG/DL (0.2-1.0); BLOOD UREA NITROGEN 23 MG/DL (7-18); CALCIUM LEVEL 8.8 MG/DL (8.8-10.2); CARBON DIOXIDE LEVEL 27 MEQ/L (21-32); CHLORIDE LEVEL 101 MEQ/L (98-107); CHOLESTEROL LEVEL 153 MG/DL (<200); CHOLESTEROL RISK RATIO 2.217 (<5); CREATININE FOR GFR 0.63 MG/DL (0.55-1.30); FREE T4 1.04 NG/DL (0.76-1.46); GLOMERULAR FILTRATION RATE > 60.0 (>39); GLUCOSE, FASTING 110 MG/DL (70-100); HDL CHOLESTEROL 69 MG/DL (>40); LDL CHOLESTEROL 68 MG/DL (<100); NON-HDL-C 84 MG/DL; POTASSIUM SERUM 4.8 MEQ/L (3.5-5.1); SODIUM LEVEL 137 MEQ/L (136-145); TOTAL PROTEIN 6.9 GM/DL (6.4-8.2); TRIGLYCERIDES LEVEL 79 MG/DL (<150)
== END ==
LOC: M SFHCADAM 09:57
PROVIDERS: ATTEND Family Medicine
DX: Z01.818 Encounter for other preprocedural examination (principal); E11.9 Type 2 diabetes mellitus without complications; R63.4 Abnormal weight loss; E03.9 Hypothyroidism, unspecified; I67.89 Other cerebrovascular disease; D49.4 Neoplasm of unspecified behavior of bladder; N39.0 Urinary tract infection, site not specified

== ENCOUNTER → 2019-07-16 | Outpatient (CLI) | payer MEDICARE, OTHER ==
[~2019-07-16] MED LIST changes: +ACET-683 PO
--- NOTE | 2019-07-16 14:02 | REP ---
PA and lateral chest: Comparison is 02/12/2007. There is a stable 8 mm nodule inferolaterally in the right lung, unchanged, likely a granuloma. The lung ruiz otherwise clear and unchanged. Cardiac size is upper normal and has increased slightly from the prior study. The jeffery, mediastinum, skeletal structures are unremarkable. Impression: There are no acute cardiopulmonary findings. 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 Electronically Signed by Warren Francis MD 07/16/2019 01:53 P
== END ==
LOC: M ADAMS 10:12
PROVIDERS: ATTEND Family Medicine
DX: Z01.818 Encounter for other preprocedural examination (principal); I67.89 Other cerebrovascular disease; D49.4 Neoplasm of unspecified behavior of bladder; R91.1 Solitary pulmonary nodule; N39.0 Urinary tract infection, site not specified; E03.9 Hypothyroidism, unspecified; E11.9 Type 2 diabetes mellitus without complications
CPT/HCPCS: 71046; 80053; 80061; 83036; 84439; 84443; 85610; 85652; 85730; 87086; 93005; G0463

== ENCOUNTER 2019-07-22 08:04 | Day surgery (SDC) | payer MEDICARE, OTHER ==
[~2019-07-22] VITALS: Ht 152.4 cm; Wt 67.6 kg
[~2019-07-22 08:04] MED LIST changes: -ACET-683 PO; +LIDOCAINE 1% MDV 20ML VIAL SQ PRN; +LIDOCAINE 2% INJ 100 MG/5 ML SDV (FOR ANES.) As Ordered ONE; +LR 1,000 ML IV ONE; +PROPOFOL 200 MG/20 ML VIAL As Ordered ONE; +ceFAZolin SOD 2 GM in IV 1 EA IV ONE
[2019-07-22] MEDS ORDERED: ACET-683 PO (09:16)
[2019-07-22] MEDS ORDERED: ONDANSETRON 4MG/2ML VIAL (J2405) As Ordered ONE (12:02)
[2019-07-22] MEDS ORDERED: dexameTHASONE 4 MG/ML 1ML VIAL (J1100) As Ordered ONE ×2 (12:02→13:51)
[2019-07-22] MEDS ORDERED: fentaNYL 100 MCG/2 ML INJECTION (J3010) As Ordered ONE (12:19)
[2019-07-22] MEDS ORDERED: ROCURONIUM BROMIDE 50 MG/5 ML VIAL As Ordered ONE (12:43)
[2019-07-22] MEDS ORDERED: CONRAY-60 60% 50ML VIAL (Q9961) As Ordered ONE (13:42)
[2019-07-22] MEDS ORDERED: SUGAMMADEX SODIUM 500 MG/5 ML VIAL (BRIDION) As Ordered ONE (13:44)
--- NOTE | 2019-07-22 14:23 | REP ---
Retrograde pyelogram: Single view. History: Cystoscopy. Right stent placement. 12 seconds of fluoroscopy time is reported. Findings: A single last image hold fluoroscopically obtained spot radiograph of the abdomen documents double pigtail stent positioned on the right side. Electronically Signed by Martin Purvis MD 07/22/2019 02:34 P
[2019-07-22] MEDS ORDERED: METOCLOPRAMIDE INJ 10MG/2ML VIAL (J2765) IV PRN (14:30)
[2019-07-22] MEDS ORDERED: fentaNYL 100 MCG/2 ML INJECTION (J3010) IV PRN (14:30)
[2019-07-22] MEDS ORDERED: ONDANSETRON 4MG/2ML VIAL (J2405) IV PRN (14:30)
[2019-07-22] MEDS ORDERED: LR 1,000 ML IV SCH (14:30)
--- NOTE | 2019-07-22 14:42 | RO ---
DATE OF PROCEDURE: 07/22/2019 PREPROCEDURE DIAGNOSIS: Bladder tumor. POSTPROCEDURE DIAGNOSIS: Bladder tumor. PROCEDURE: Cystoscopy, transurethral resection of bladder tumor (less than 2 cm), right retrograde pyelogram with intraoperative interpretation of images, right ureteral stent placement. SURGEON: Edmundo Ceballos MD STRIPPING AND BOOKING MACHINE OPERATOR: None. ANESTHESIA: General. OPERATIVE INDICATIONS: This is a 78-year-old female, who on office cystoscopy was found to have an approximately a centimeter and a half bladder tumor in the right wall near the ureteral orifice. She was brought to the operating room today for treatment. DESCRIPTION OF PROCEDURE: The patient was brought to the operating room, and general anesthesia was induced. Prophylactic antibiotics were infused. She was then placed in dorsal lithotomy position, prepped and draped in the usual sterile fashion. At this point, a resectoscope was inserted into the urethral meatus using a visual obturator. The bladder was sterilely then thoroughly examined, and the only abnormality seen was the centimeter and a half tumor just above the right ureteral orifice. A resectoscope was then utilized to resect the tumor completely. I did resect down to the muscle layer of the bladder. Once done, hemostasis was obtained using coagulation current. Since I had to resect over the ureteral orifice, an incision was made to place a stent. A guidewire was then advanced up the right collecting system. I then advanced a ureteral catheter over the wire into the right collecting system. The wire was removed and a retrograde pyelogram was performed. It was noted for mild right hydronephrosis. No extravasation. I then advanced the wire back up the right collecting system and removed the ureteral catheter. I utilized the wire to advance a 7-Bhutanese x 22-32 cm JJ ureteral stent into the right collecting system. The wire was then removed, and there were adequate curls of the stent in the right renal pelvis and the bladder. At this point, after all the specimen had been removed and sent for pathologic analysis, an 18-Bhutanese Brandt catheter was placed. The balloon was filled with 10 mL of sterile water and the catheter was connected to gravity drainage. This marked the conclusion of the procedure. The patient was then taken out of the dorsal lithotomy position, awakened from anesthesia, and transported to recovery room in stable condition. ESTIMATED BLOOD LOSS: 5 mL. COMPLICATIONS: None. SPECIMENS: Bladder tumor. PLAN: The patient will followup in about 1 week for catheter removal and to discuss her pathology results. We will take her stent out in about 3-4 weeks. MTDD
[2019-07-22] MEDS ORDERED: ACETAMINOPHEN TAB 650MG DOSE (2X325MG) PO PRN (15:00)
[2019-07-22 17:00] VITALS: BP 161/81
== END 2019-07-22 17:15 | disposition home or self-care (01) ==
LOC: M SDC 08:04
PROVIDERS: ATTEND Urology
DX: C67.9 Malignant neoplasm of bladder, unspecified (principal); E78.5 Hyperlipidemia, unspecified; E03.9 Hypothyroidism, unspecified; F31.9 Bipolar disorder, unspecified; F32.9 Major depressive disorder, single episode, unspecified; Z85.3 Personal history of malignant neoplasm of breast; Z92.3 Personal history of irradiation; Z88.8 Allergy status to other drugs, medicaments and biological substances; Z79.899 Other long term (current) drug therapy
CPT/HCPCS: 52234; 52332; 74420; 88305; C1769; C2617; J0690; J1100; J2405; J3010; Q9961

== ENCOUNTER → 2019-09-18 | Outpatient (CLI) | payer MEDICARE, OTHER ==
[~2019-09-18] MED LIST changes: +ACET-683 PO; -LIDOCAINE 1% MDV 20ML VIAL SQ PRN; -LIDOCAINE 2% INJ 100 MG/5 ML SDV (FOR ANES.) As Ordered ONE; -LR 1,000 ML IV ONE; -PROPOFOL 200 MG/20 ML VIAL As Ordered ONE; -SIMV20TA2 PO; +SIMV20TA22 PO; -ceFAZolin SOD 2 GM in IV 1 EA IV ONE
[2019-09-18 17:33] LABS: ALBUMIN 3.5 GM/DL (3.2-5.2); BILIRUBIN,DIRECT 0.2 MG/DL (0.0-0.2); BILIRUBIN,TOTAL 0.5 MG/DL (0.2-1.0); TOTAL PROTEIN 7.9 GM/DL (6.4-8.2); VALPROIC ACID (DEPAKOTE) 32.6 UG/ML (50.0-100.0)
== END ==
LOC: M PLALAB 13:51
PROVIDERS: ATTEND Psychiatry & Neurology Psychiatry
DX: Z51.81 Encounter for therapeutic drug level monitoring (principal)

== ENCOUNTER 2019-11-04 15:56 | Emergency (ER) | payer MEDICARE, OTHER ==
[~2019-11-04] VITALS: Ht 152.4 cm; Wt 67.0 kg
[~2019-11-04 15:56] MED LIST changes: +AMLO5TAB6 PO; +CALC600T60 PO; +DIVA500T94 PO; +FOLI1TAB11 PO; +INVE3TAB2 PO
[2019-11-04] MEDS ORDERED: INVE3TAB2 (16:04)
--- NOTE | 2019-11-04 16:38 | REP ---
Left ankle series: Four views. History: Swelling and pain. Comparison left ankle radiographs are from February 28, 2019. Findings: There is moderate to marked medial and lateral periarticular soft tissue swelling. Anterior swelling is seen. There is tibiotalar osteoarthritic spurring noted particularly on the lateral film. Spurring and narrowing are seen between the medial malleolus and the medial aspect of the talus as well. There is plantar calcaneal spurring again noted. There is soft tissue swelling in the pre-Achilles fat as well as diffusely around the ankle joint. There is diffuse osteoporosis. No fractures seen. Impression: No fracture noted. Diffuse soft tissue swelling. Ankle joint osteoarthritis. Heel spurring. Electronically Signed by Martin Purvis MD 11/04/2019 04:30 P
[2019-11-04 17:57] LABS: BASO % 0.5 % (0.0-1.0); EOS # 0.1 10^3/uL (0.0-0.5); EOS % 0.7 % (0.0-3.0); HEMATOCRIT 43.1 % (36.0-47.0); HEMOGLOBIN 14.7 g/dl (12.0-15.5); LYMPH # 2.3 10^3/uL (1.5-5.0); LYMPH % 27.9 % (24.0-44.0); MEAN CORPUSCULAR HEMOGLOBIN 31.8 pg (27.0-33.0); MEAN CORPUSCULAR HGB CONC 34.1 g/dl (32.0-36.5); MEAN CORPUSCULAR VOLUME 93.3 fl (80.0-96.0); MONO # 0.8 10^3/uL (0.0-0.8); MONO % 9.9 % (0.0-5.0); NEUTROPHILS # 5.1 10^3/uL (1.5-8.5); NEUTROPHILS % 60.9 % (36.0-66.0); PLATELET COUNT, AUTOMATED 195 10^3/uL (150-450); RED BLOOD COUNT 4.62 10^6/uL (4.00-5.40); WHITE BLOOD COUNT 8.4 10^3/uL (4.0-10.0)
--- NOTE | 2019-11-04 18:18 | REPVR ---
PROCEDURE INFORMATION: Exam: US Duplex Left Lower Extremity Veins, Limited Exam date and time: 11/04/2019 6:08 PM Age: 79 years old Clinical indication: Pain; Leg, lower; Left; Additional info: Lle edema, R/O dvt TECHNIQUE: Imaging protocol: Real-time Duplex ultrasound of the Left Lower Extremity with 2-D winters scale, color Doppler flow and spectral waveform analysis with image documentation. Limited exam focused on the left lower extremity veins. COMPARISON: No relevant prior studies available. FINDINGS: Left deep veins: Unremarkable. The common femoral, femoral, proximal profunda femoral and popliteal veins are patent without thrombus. Normal Doppler waveforms. Normal compressibility and/or augmentation response. Left superficial veins: Unremarkable. Saphenofemoral junction is patent without thrombus. Soft tissues: Unremarkable. IMPRESSION: No DVT of the left lower extremity veins. Electronically signed by: Robel Marinelli On 11/04/2019 18:18:18 PM
[2019-11-04 18:19] LABS: BLOOD UREA NITROGEN 12 MG/DL (7-18); C REACTIVE PROTEIN QUANTITATIV 0.43 MG/DL (0.00-0.30); CALCIUM LEVEL 9.8 MG/DL (8.8-10.2); CARBON DIOXIDE LEVEL 29 MEQ/L (21-32); CHLORIDE LEVEL 105 MEQ/L (98-107); CREATININE FOR GFR 0.53 MG/DL (0.55-1.30); GLOMERULAR FILTRATION RATE > 60.0 (>39); GLUCOSE, FASTING 111 MG/DL (70-100); POTASSIUM SERUM 3.9 MEQ/L (3.5-5.1); SODIUM LEVEL 140 MEQ/L (136-145)
[2019-11-04 18:30] LABS: ERYTHROCYTE SEDIMENTATION RATE 7 mm/hr (0-30)
[2019-11-04] MEDS ORDERED: KEFL500C17 PO (18:48)
[2019-11-04] MEDS ORDERED: POLYSOL OU (18:58)
[2019-11-04 19:05] VITALS: BP 131/69
== END 2019-11-04 19:06 | disposition home or self-care (01) ==
LOC: M ED 15:56
DX: L03.116 Cellulitis of left lower limb (principal); H10.33 Unspecified acute conjunctivitis, bilateral; M19.072 Primary osteoarthritis, left ankle and foot; M77.32 Calcaneal spur, left foot; M25.772 Osteophyte, left ankle; I10 Essential (primary) hypertension; E78.5 Hyperlipidemia, unspecified; E03.9 Hypothyroidism, unspecified; F31.9 Bipolar disorder, unspecified; Z85.3 Personal history of malignant neoplasm of breast; Z87.39 Personal history of other diseases of the musculoskeletal system and connective tissue; Z87.820 Personal history of traumatic brain injury; Z87.891 Personal history of nicotine dependence; Z88.6 Allergy status to analgesic agent; Z88.8 Allergy status to other drugs, medicaments and biological substances; Z79.899 Other long term (current) drug therapy

== ENCOUNTER → 2019-11-26 | Outpatient (REF) | payer MEDICARE, OTHER ==
[~2019-11-26] MED LIST changes: +INVE3TAB2; +KEFL500C17 PO; +POLYSOL OU
== END ==
LOC: M SMT 16:53
PROVIDERS: ATTEND Urology
DX: C67.9 Malignant neoplasm of bladder, unspecified (principal)

== ENCOUNTER → 2019-12-04 | Outpatient (REF) | payer MEDICARE, OTHER ==
[2019-12-04 10:06] LABS: HEMATOCRIT 52.3 % (36.0-47.0); HEMOGLOBIN 17.3 g/dl (12.0-15.5); MEAN CORPUSCULAR HEMOGLOBIN 31.5 pg (27.0-33.0); MEAN CORPUSCULAR HGB CONC 33.1 g/dl (32.0-36.5); MEAN CORPUSCULAR VOLUME 95.3 fl (80.0-96.0); PLATELET COUNT, AUTOMATED 197 10^3/uL (150-450); RED BLOOD COUNT 5.49 10^6/uL (4.00-5.40); WHITE BLOOD COUNT 6.5 10^3/uL (4.0-10.0)
[2019-12-04 10:32] LABS: HEMOGLOBIN A1c 6.7 %
[2019-12-04 10:45] LABS: ALBUMIN 3.4 GM/DL (3.2-5.2); ALT/SGPT 48 U/L (12-78); BILIRUBIN,TOTAL 0.4 MG/DL (0.2-1.0); BLOOD UREA NITROGEN 14 MG/DL (7-18); CALCIUM LEVEL 9.7 MG/DL (8.8-10.2); CARBON DIOXIDE LEVEL 27 MEQ/L (21-32); CHLORIDE LEVEL 107 MEQ/L (98-107); CREATININE FOR GFR 0.66 MG/DL (0.55-1.30); FREE T4 1.12 NG/DL (0.76-1.46); GLOMERULAR FILTRATION RATE > 60.0 (>39); GLUCOSE, FASTING 139 MG/DL (70-100); POTASSIUM SERUM 4.1 MEQ/L (3.5-5.1); SODIUM LEVEL 141 MEQ/L (136-145)
== END ==
LOC: M SFHCADAM 08:04
PROVIDERS: ATTEND Family Medicine
DX: C67.9 Malignant neoplasm of bladder, unspecified (principal); E11.9 Type 2 diabetes mellitus without complications; E03.9 Hypothyroidism, unspecified

== ENCOUNTER → 2020-03-04 | Outpatient (REF) | payer MEDICARE, OTHER ==
[~2020-03-04] MED LIST changes: +AMLO1TAB24 PO; -AMLO5TAB6 PO; -METF-791 PO; +METF-838 PO
== END ==
LOC: M SMT 16:51
PROVIDERS: ATTEND Urology
DX: C67.9 Malignant neoplasm of bladder, unspecified (principal)

== ENCOUNTER → 2020-04-06 | Outpatient (CLI) | payer MEDICARE, OTHER ==
--- NOTE | 2020-05-01 07:41 | REPMRS ---
Patient History The patient states she has not had a clinical breast exam in over a year. 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 Family history of breast cancer at age 50 or over in sister, breast cancer at age 46 in mother, colorectal cancer at age 60 in brother. Radiation therapy of the left breast, 2007. No Hormone Replacement Therapy Digital Woman Screen Mammo: April 06, 2020 - Exam #: [id number] Bilateral CC and MLO view(s) were taken. Technologist: Trish Inman, Technologist Prior study comparison: December 12, 2018, bilateral digital mammo screening bilat, performed at [facility]. December 05, 2017, bilateral digital mammo screening bilat, performed at [facility]. November 23, 2016, bilateral digital mammo screening bilat, performed at [facility]. FINDINGS: There are scattered fibroglandular densities. The Volpara volumetric breast density category is:B. There are stable post treatment changes in the left breast. There has been no change in the appearance of the mammogram from the prior studies. There is a mild amount of scattered fibroglandular density which is fairly symmetric. There is no interval development of dominant mass, architectural distortion, or grouped microcalcification suggestive of malignancy. 3-D tomosynthesis shows no additional findings. Report was delayed due to a protracted network disruption experienced by this facility. Assessment: BI-RADS/ACR category 2 mammogram. Benign Findings. Recommendation Routine screening mammogram of both breasts in 1 year (for women over age 40). This mammogram was interpreted with the aid of an FDA-approved computer-aided dectection system. Electronically Signed By: Hair Purvis MD 05/01/20 [id number]
== END ==
LOC: M WHC 17:29
PROVIDERS: ATTEND Physician Assistant
DX: Z12.31 Encounter for screening mammogram for malignant neoplasm of breast (principal); Z78.0 Asymptomatic menopausal state; Z85.3 Personal history of malignant neoplasm of breast; Z80.3 Family history of malignant neoplasm of breast; Z80.0 Family history of malignant neoplasm of digestive organs; Z92.3 Personal history of irradiation

== ENCOUNTER → 2020-05-12 | Outpatient (REF) | payer MEDICARE, OTHER ==
[2020-05-12 14:21] LABS: HEMATOCRIT 50.9 % (36.0-47.0); HEMOGLOBIN 16.7 g/dl (12.0-15.5); MEAN CORPUSCULAR HEMOGLOBIN 31.3 pg (27.0-33.0); MEAN CORPUSCULAR HGB CONC 32.8 g/dl (32.0-36.5); MEAN CORPUSCULAR VOLUME 95.3 fl (80.0-96.0); PLATELET COUNT, AUTOMATED 243 10^3/uL (150-450); RED BLOOD COUNT 5.34 10^6/uL (4.00-5.40); WHITE BLOOD COUNT 9.8 10^3/uL (4.0-10.0)
[2020-05-12 14:50] LABS: ALBUMIN 3.6 GM/DL (3.2-5.2); ALT/SGPT 21 U/L (12-78); BILIRUBIN,TOTAL 0.5 MG/DL (0.2-1.0); BLOOD UREA NITROGEN 17 MG/DL (7-18); CARBON DIOXIDE LEVEL 29 MEQ/L (21-32); CHLORIDE LEVEL 103 MEQ/L (98-107); CREATININE FOR GFR 0.71 MG/DL (0.55-1.30); FREE T4 1.14 NG/DL (0.76-1.46); GLOMERULAR FILTRATION RATE > 60.0 (>39); GLUCOSE, FASTING 97 MG/DL (70-100); POTASSIUM SERUM 4.2 MEQ/L (3.5-5.1); SODIUM LEVEL 140 MEQ/L (136-145)
[2020-05-12 15:12] LABS: HEMOGLOBIN A1c 6.1 %
== END ==
LOC: M LABDRWAD 13:33
PROVIDERS: ATTEND Family Medicine
DX: E11.9 Type 2 diabetes mellitus without complications (principal); E03.9 Hypothyroidism, unspecified; C67.9 Malignant neoplasm of bladder, unspecified

== ENCOUNTER → 2020-06-08 | Outpatient (REF) | payer MEDICARE, OTHER | LOC: M SMT 17:09 | PROVIDERS: ATTEND Urology | DX: C67.9 Malignant neoplasm of bladder, unspecified (principal) ==

== ENCOUNTER → 2020-10-06 | Outpatient (REF) | payer MEDICARE, OTHER ==
[~2020-10-06] MED LIST changes: +RISP-7 PO; -RISP0.5T3 PO
[2020-10-06 16:50] LABS: HEMATOCRIT 50.3 % (36.0-47.0); HEMOGLOBIN 16.7 g/dl (12.0-15.5); MEAN CORPUSCULAR HEMOGLOBIN 30.6 pg (27.0-33.0); MEAN CORPUSCULAR HGB CONC 33.2 g/dl (32.0-36.5); MEAN CORPUSCULAR VOLUME 92.1 fl (80.0-96.0); PLATELET COUNT, AUTOMATED 273 10^3/uL (150-450); RED BLOOD COUNT 5.46 10^6/uL (4.00-5.40); WHITE BLOOD COUNT 7.1 10^3/uL (4.0-10.0)
[2020-10-06 17:16] LABS: HEMOGLOBIN A1c 5.6 %
[2020-10-06 17:32] LABS: ALT/SGPT 29 U/L (12-78); BILIRUBIN,TOTAL 0.4 MG/DL (0.2-1.0); BLOOD UREA NITROGEN 15 MG/DL (7-18); CALCIUM LEVEL 11.3 MG/DL (8.8-10.2); CARBON DIOXIDE LEVEL 29 MEQ/L (21-32); CHLORIDE LEVEL 104 MEQ/L (98-107); CHOLESTEROL LEVEL 266 MG/DL (<200); CHOLESTEROL RISK RATIO 3.746 (<5); CREATININE FOR GFR 0.83 MG/DL (0.55-1.30); FREE T4 1.26 NG/DL (0.76-1.46); GLOMERULAR FILTRATION RATE > 60.0 (>39); GLUCOSE, FASTING 153 MG/DL (70-100); HDL CHOLESTEROL 71 MG/DL (>40); LDL CHOLESTEROL 161 MG/DL (<100); NON-HDL-C 195 MG/DL; POTASSIUM SERUM 4.6 MEQ/L (3.5-5.1); SODIUM LEVEL 143 MEQ/L (136-145); TRIGLYCERIDES LEVEL 171 MG/DL (<150)
== END ==
LOC: M SFHCADAM 13:57
PROVIDERS: ATTEND Family Medicine
DX: E03.9 Hypothyroidism, unspecified (principal); E11.9 Type 2 diabetes mellitus without complications; E78.2 Mixed hyperlipidemia; C67.9 Malignant neoplasm of bladder, unspecified; F31.64 Bipolar disorder, current episode mixed, severe, with psychotic features; I67.89 Other cerebrovascular disease
CPT/HCPCS: 80053; 80061; 83036; 84439; 84443; 85027; G0463

== ENCOUNTER → 2020-11-09 | Outpatient (REF) | payer MEDICARE, OTHER ==
[2020-11-09 13:06] LABS: ALBUMIN 3.9 GM/DL (3.2-5.2); ALT/SGPT 32 U/L (12-78); BILIRUBIN,TOTAL 0.4 MG/DL (0.2-1.0); BLOOD UREA NITROGEN 14 MG/DL (7-18); CALCIUM LEVEL 10.1 MG/DL (8.8-10.2); CARBON DIOXIDE LEVEL 30 MEQ/L (21-32); CHLORIDE LEVEL 107 MEQ/L (98-107); CREATININE FOR GFR 0.72 MG/DL (0.55-1.30); GLOMERULAR FILTRATION RATE > 60.0 (>39); GLUCOSE, FASTING 144 MG/DL (70-100); POTASSIUM SERUM 4.1 MEQ/L (3.5-5.1); SODIUM LEVEL 143 MEQ/L (136-145); TOTAL PROTEIN 7.7 GM/DL (6.4-8.2)
[2020-11-09 13:26] LABS: PTH INTACT 16.5 PG/ML (18.5-88.0); TOTAL 25(OH) VITAMIN D 60.8 NG/ML (30.0-100.0)
== END ==
LOC: M SFHCADAM 10:42
PROVIDERS: ATTEND Family Medicine
DX: E83.52 Hypercalcemia (principal)

== ENCOUNTER → 2021-04-20 | Outpatient (REF) | payer MEDICARE, OTHER ==
[2021-04-20 17:24] LABS: HEMATOCRIT 48.6 % (36.0-47.0); MEAN CORPUSCULAR HEMOGLOBIN 30.5 pg (27.0-33.0); MEAN CORPUSCULAR HGB CONC 32.9 g/dl (32.0-36.5); MEAN CORPUSCULAR VOLUME 92.6 fl (80.0-96.0); PLATELET COUNT, AUTOMATED 258 10^3/uL (150-450); RED BLOOD COUNT 5.25 10^6/uL (4.00-5.40); WHITE BLOOD COUNT 6.6 10^3/uL (4.0-10.0)
[2021-04-20 17:44] LABS: HEMOGLOBIN A1c 5.3 %
[2021-04-20 17:55] LABS: ALBUMIN 3.8 GM/DL (3.2-5.2); ALT/SGPT 25 U/L (12-78); BILIRUBIN,TOTAL 0.4 MG/DL (0.2-1.0); BLOOD UREA NITROGEN 15 MG/DL (7-18); CALCIUM LEVEL 10.4 MG/DL (8.8-10.2); CARBON DIOXIDE LEVEL 29 MEQ/L (21-32); CHLORIDE LEVEL 108 MEQ/L (98-107); CHOLESTEROL LEVEL 258 MG/DL (<200); CREATININE FOR GFR 0.69 MG/DL (0.55-1.30); FREE T4 1.26 NG/DL (0.76-1.46); GLOMERULAR FILTRATION RATE > 60.0 (>39); GLUCOSE, FASTING 98 MG/DL (70-100); HDL CHOLESTEROL 75 MG/DL (>40); LDL CHOLESTEROL 156 MG/DL (<100); NON-HDL-C 183 MG/DL; POTASSIUM SERUM 4.5 MEQ/L (3.5-5.1); SODIUM LEVEL 143 MEQ/L (136-145); THYROID STIMULATING HORMONE 0.285 uIU/ML (0.358-3.740); TOTAL PROTEIN 7.4 GM/DL (6.4-8.2); TRIGLYCERIDES LEVEL 133 MG/DL (<150)
[2021-04-20 17:59] LABS: PTH INTACT 10.6 PG/ML (18.5-88.0)
== END ==
LOC: M SFHCADAM 11:51
PROVIDERS: ATTEND Family Medicine
DX: E83.52 Hypercalcemia (principal); E11.9 Type 2 diabetes mellitus without complications; E78.2 Mixed hyperlipidemia; I67.89 Other cerebrovascular disease; E03.9 Hypothyroidism, unspecified
CPT/HCPCS: 80053; 80061; 83036; 83970; 84439; 84443; 85027; G0463

== ENCOUNTER → 2021-05-06 | Outpatient (REF) | payer MEDICARE, OTHER | LOC: M LAB REF 11:41 | PROVIDERS: ATTEND Internal Medicine Gastroenterology | DX: R19.7 Diarrhea, unspecified (principal) ==

== ENCOUNTER → 2021-05-14 | Outpatient (CLI) | payer MEDICARE, OTHER ==
--- NOTE | 2021-05-19 13:01 | REP ---
INDICATION: FULL INCONTINENCE OF FECES. COMPARISON: None. TECHNIQUE: Single KUB FINDINGS: The intestinal gas pattern is nonspecific. 2 Sitz markers are seen superimposed over the left iliac wing and 11 Sitz markers are seen in the pelvis. The organ silhouettes insofar as delineated are within normal limits. The osseous structures are within normal limits. IMPRESSION: Sitz markers as described above. <Electronically signed by Wilner Brooks > 05/19/21 [id number]
== END ==
LOC: M RAD 12:49
PROVIDERS: ATTEND Internal Medicine Gastroenterology
DX: R15.9 Full incontinence of feces (principal); Z12.31 Encounter for screening mammogram for malignant neoplasm of breast

== ENCOUNTER → 2021-05-14 | Outpatient (CLI) | payer MEDICARE, OTHER ==
--- NOTE | 2021-05-14 16:28 | REPMRS ---
Patient History The patient states she has not had a clinical breast exam in over a year. Family history of breast cancer at age 50 or over in sister, breast cancer at age 46 in mother, colorectal cancer at age 60 in brother. Radiation therapy of the left breast, 2006. No Hormone Replacement Therapy 10+ lb unintentional weight loss. Patient states no breast complaints today. Patient has signed MRS History Sheet. Digital Woman Screen Mammo: May 14, 2021 - Exam #: [id number] Bilateral CC and MLO view(s) were taken. Technologist: Jayda No, Prior study comparison: April 06, 2020, bilateral digital woman screen mammo performed at [facility]. December 12, 2018, bilateral digital mammo screening bilat, performed at [facility]. December 05, 2017, bilateral digital mammo screening bilat, performed at [facility]. FINDINGS: The breast tissue is heterogeneously dense. This may lower the sensitivity of mammography. The Volpara volumetric breast density category is: C. There are stable post treatment changes again noted in the left breast. There is a moderate amount of heterogeneously dense fibroglandular tissue which is fairly symmetric. There is no interval development of dominant mass, architectural distortion, or grouped microcalcification typical of malignancy. There has been no change in the appearance of the mammogram from the prior studies. 3-D tomosynthesis shows no additional findings. Assessment: BI-RADS/ACR category 2 mammogram. Benign Findings. Recommendation Routine screening mammogram of both breasts in 1 year (for women over age 40). This mammogram was interpreted with the aid of an FDA-approved computer-aided dectection system. Electronically Signed By: Hair Purvis MD 05/14/21 [id number]
== END ==
LOC: M WHC 11:36
PROVIDERS: ATTEND Family Medicine
DX: Z12.31 Encounter for screening mammogram for malignant neoplasm of breast (principal)

== ENCOUNTER → 2021-09-29 | Outpatient (REF) | payer MEDICARE, OTHER ==
[2021-09-29 13:27] LABS: HEMATOCRIT 45.4 % (36.0-47.0); HEMOGLOBIN 15.2 g/dl (12.0-15.5); MEAN CORPUSCULAR HEMOGLOBIN 31.3 pg (27.0-33.0); MEAN CORPUSCULAR HGB CONC 33.5 g/dl (32.0-36.5); MEAN CORPUSCULAR VOLUME 93.6 fl (80.0-96.0); PLATELET COUNT, AUTOMATED 226 10^3/uL (150-450); RED BLOOD COUNT 4.85 10^6/uL (4.00-5.40)
[2021-09-29 15:00] LABS: HEMOGLOBIN A1c 5.2 %
[2021-09-29 15:34] LABS: ALBUMIN 3.9 GM/DL (3.2-5.2); ALT/SGPT 18 U/L (12-78); BILIRUBIN,TOTAL 0.3 MG/DL (0.2-1.0); BLOOD UREA NITROGEN 18 MG/DL (7-18); CARBON DIOXIDE LEVEL 30 MEQ/L (21-32); CHLORIDE LEVEL 106 MEQ/L (98-107); CHOLESTEROL LEVEL 228 MG/DL (<200); CHOLESTEROL RISK RATIO 3.257 (<5); CREATININE FOR GFR 0.77 MG/DL (0.55-1.30); FREE T4 1.21 NG/DL (0.76-1.46); GLOMERULAR FILTRATION RATE > 60.0 (>39); GLUCOSE, FASTING 114 MG/DL (70-100); HDL CHOLESTEROL 70 MG/DL (>40); LDL CHOLESTEROL 137 MG/DL (<100); NON-HDL-C 158 MG/DL; POTASSIUM SERUM 4.5 MEQ/L (3.5-5.1); SODIUM LEVEL 141 MEQ/L (136-145); THYROID STIMULATING HORMONE 0.512 uIU/ML (0.358-3.740); TOTAL PROTEIN 7.2 GM/DL (6.4-8.2); TRIGLYCERIDES LEVEL 107 MG/DL (<150)
== END ==
LOC: M SFHCADAM 10:04
PROVIDERS: ATTEND Family Medicine
DX: I67.89 Other cerebrovascular disease (principal); E11.9 Type 2 diabetes mellitus without complications; E03.9 Hypothyroidism, unspecified

== ENCOUNTER → 2022-05-10 | Outpatient (REF) | payer MEDICARE, OTHER ==
[~2022-05-10] MED LIST changes: -AFRI0.058; +OXYM15SP2
[2022-05-11 12:56] LABS: HEMATOCRIT 42.9 % (36.0-47.0); HEMOGLOBIN 14.4 g/dl (12.0-15.5); MEAN CORPUSCULAR HGB CONC 33.6 g/dl (32.0-36.5); MEAN CORPUSCULAR VOLUME 92.3 fl (80.0-96.0); PLATELET COUNT, AUTOMATED 210 10^3/uL (150-450); RED BLOOD COUNT 4.65 10^6/uL (4.00-5.40); WHITE BLOOD COUNT 6.5 10^3/uL (4.0-10.0)
[2022-05-11 13:13] LABS: HEMOGLOBIN A1c 5.3 %
[2022-05-11 14:15] LABS: ALBUMIN 3.4 GM/DL (3.2-5.2); ALT/SGPT 15 U/L (12-78); BILIRUBIN,TOTAL 0.3 MG/DL (0.2-1.0); BLOOD UREA NITROGEN 17 MG/DL (7-18); CALCIUM LEVEL 9.3 MG/DL (8.8-10.2); CARBON DIOXIDE LEVEL 25 MEQ/L (21-32); CHLORIDE LEVEL 105 MEQ/L (98-107); CHOLESTEROL LEVEL 219 MG/DL (<200); CHOLESTEROL RISK RATIO 3.775 (<5); CREATININE FOR GFR 0.81 MG/DL (0.55-1.30); FREE T4 1.11 NG/DL (0.76-1.46); GLOMERULAR FILTRATION RATE > 60.0 (>32); GLUCOSE, FASTING 116 MG/DL (70-100); HDL CHOLESTEROL 58 MG/DL (>40); LDL CHOLESTEROL 125 MG/DL (<100); NON-HDL-C 161 MG/DL; POTASSIUM SERUM 5.8 MEQ/L (3.5-5.1); SODIUM LEVEL 138 MEQ/L (136-145); THYROID STIMULATING HORMONE 0.305 uIU/ML (0.358-3.740); TOTAL PROTEIN 6.7 GM/DL (6.4-8.2); TRIGLYCERIDES LEVEL 182 MG/DL (<150)
== END ==
LOC: M SFHCADAM 15:24
PROVIDERS: ATTEND Family Medicine
DX: E03.9 Hypothyroidism, unspecified (principal); I11.9 Hypertensive heart disease without heart failure; E78.2 Mixed hyperlipidemia; E11.9 Type 2 diabetes mellitus without complications; F31.64 Bipolar disorder, current episode mixed, severe, with psychotic features

== ENCOUNTER → 2022-05-19 | Outpatient (CLI) | payer MEDICARE, OTHER | LOC: M WHC 13:05 | PROVIDERS: ATTEND Family Medicine | DX: Z12.31 Encounter for screening mammogram for malignant neoplasm of breast (principal) ==

== ENCOUNTER → 2022-06-28 | Outpatient (CLI) | payer MEDICARE, OTHER | LOC: M WHC 13:02 | PROVIDERS: ATTEND Family Medicine | DX: R92.8 Other abnormal and inconclusive findings on diagnostic imaging of breast (principal); N63.22 Unspecified lump in the left breast, upper inner quadrant | CPT/HCPCS: 76642; 77065; G0279 ==

== ENCOUNTER → 2022-07-06 | Outpatient (CLI) | payer MEDICARE, OTHER ==
[2022-07-06 17:15] VITALS: BP 114/78
== END ==
LOC: M WHCPRO 13:30
PROVIDERS: ATTEND Surgery
DX: R92.8 Other abnormal and inconclusive findings on diagnostic imaging of breast (principal); N63.22 Unspecified lump in the left breast, upper inner quadrant
CPT/HCPCS: 19083; 77065; 88305; G0279

== ENCOUNTER → 2022-07-19 | Outpatient (CLI) | payer MEDICARE, OTHER ==
[~2022-07-19] MED LIST changes: +**SFHN** LIDOCAINE 1% MDV 20ML VIAL ONE; +**SFHN** SODIUM BICARBONATE 8.4% 10MEQ 10ML VIAL ONE; +LATU80TA2 PO
[2022-07-19 13:47] VITALS: BP 110/68
== END ==
LOC: M WHC 10:53
PROVIDERS: ATTEND Nurse Practitioner Women's Health
DX: R92.8 Other abnormal and inconclusive findings on diagnostic imaging of breast (principal)
CPT/HCPCS: 76641; 77065; 88305; G0279

== ENCOUNTER 2022-09-11 11:21 | Inpatient (IN) | payer MEDICARE, OTHER ==
[~2022-09-11] VITALS: Ht 152.4 cm; Wt 48.2 kg
[~2022-09-11 11:21] MED LIST changes: -**SFHN** LIDOCAINE 1% MDV 20ML VIAL ONE; -**SFHN** SODIUM BICARBONATE 8.4% 10MEQ 10ML VIAL ONE
[2022-09-11] MEDS ORDERED: ACETAMINOPHEN 650MG SUPP PR ONE (11:40)
[2022-09-11 12:16] LABS: VENOUS O2 SATURATION 99.6 % (60.0-80.0); VENOUS PARTIAL PRESSURE CO2 21.8 mmHg (38.0-50.0); VENOUS PARTIAL PRESSURE O2 203.6 mmHg (30.0-50.0); VENOUS PH 7.535 UNITS (7.330-7.430); VENOUS STANDARD HCO3 22.9 MEQ/L; VENOUS TOTAL CO2 18.7 MEQ/L (24.0-28.0)
[2022-09-11 12:21] LABS: BASO % 0.4 % (0.0-1.0); HEMATOCRIT 50.4 % (36.0-47.0); LYMPH # 1.1 10^3/uL (1.5-5.0); LYMPH % 16.4 % (24.0-44.0); MEAN CORPUSCULAR HEMOGLOBIN 30.5 pg (27.0-33.0); MEAN CORPUSCULAR HGB CONC 31.7 g/dl (32.0-36.5); MONO # 0.5 10^3/uL (0.0-0.8); NEUTROPHILS # 5.2 10^3/uL (1.5-8.5); NEUTROPHILS % 75.6 % (36.0-66.0); PLATELET COUNT, AUTOMATED 136 10^3/uL (150-450); RED BLOOD COUNT 5.25 10^6/uL (4.00-5.40); WHITE BLOOD COUNT 6.9 10^3/uL (4.0-10.0)
[2022-09-11] MEDS: NS 1,000 ML IV SCH (12:33)
[2022-09-11 12:41] LABS: OSMOLALITY SERUM 286 MOSM/KG (280-301)
[2022-09-11 12:44] LABS: VALPROIC ACID (DEPAKOTE) 13.6 UG/ML (50.0-100.0)
[2022-09-11 12:45] LABS: ALBUMIN 3.5 G/DL (3.2-5.2); ALKALINE PHOSPHATASE 51 U/L (46-116); ALT/SGPT 28 U/L (7.0-40); AST/SGOT 40 U/L (<34); BILIRUBIN,TOTAL 0.3 MG/DL (0.3-1.2); BLOOD UREA NITROGEN 11 MG/DL (9-23); CALCIUM LEVEL 8.5 MG/DL (8.3-10.6); CARBON DIOXIDE LEVEL 15 MMOL/L (20-31); CHLORIDE LEVEL 109 MMOL/L (98-107); CREATININE FOR GFR 0.59 MG/DL (0.55-1.30); GLOMERULAR FILTRATION RATE > 60.0 (>32); GLUCOSE, FASTING 111 MG/DL (74-106); POTASSIUM SERUM 4.9 MMOL/L (3.5-5.1); SODIUM LEVEL 138 MMOL/L (136-145); TOTAL PROTEIN 7.1 G/DL (5.7-8.2)
[2022-09-11 12:46] LABS: BILIRUBIN,DIRECT < 0.1 MG/DL (<0.4)
[2022-09-11 12:48] LABS: THYROID STIMULATING HORMONE 0.333 uIU/ML (0.55-4.78)
[2022-09-11] MEDS ORDERED: DIVA1TAB48 PO (13:06)
[2022-09-11] MEDS ORDERED: AMLO2.5T3 PO (13:06)
[2022-09-11] MEDS ORDERED: HOME MED LIST COMPLETE! XX SCH (13:10)
[2022-09-11 15:26] LABS: C REACTIVE PROTEIN QUANTITATIV 2.1 MG/DL (<1.0); MAGNESIUM LEVEL 1.7 MG/DL (1.8-2.4)
[2022-09-11 15:30] LABS: FERRITIN 200.4 NG/ML (7.3-270.7)
[2022-09-11 15:46] LABS: INR 1.02; PROTHROMBIN TIME 13.6 SECONDS (12.5-14.5)
[2022-09-11 15:47] LABS: PARTIAL THROMBOPLASTIN TIME 30.4 SECONDS (24.8-34.2)
[2022-09-11] MEDS: ASPIRIN 81MG ENTERIC TABLET PO SCH (16:51)
[2022-09-11] MEDS: LACTULOSE 20GM/30ML SYRUP UDC PO SCH ×2 (16:51→21:15)
[2022-09-11] MEDS ORDERED: ACETAMINOPHEN TAB 650MG DOSE (2X325MG) PO PRN (17:10)
[2022-09-11] MEDS ORDERED: REMDESIVIR 200 MG in NS 250 ML IV ONE (18:00)
[2022-09-11] MEDS ORDERED: cefTRIAXone SOD 1 GM in D5W MINI-BAG PLUS 50 ML IV SCH (18:00)
[2022-09-11 18:45] VITALS: BP 126/63
[2022-09-11 20:00] VITALS: BP 126/60
[2022-09-11] MEDS ORDERED: SODIUM CHLORIDE 0.9% INJ 10 ML SYR IV ONE (20:00)
[2022-09-11] MEDS ORDERED: MAG SULF 1GM/100ML (MAG RUN) 1 GM in IV 1 EA IV ONE (20:00)
[2022-09-11] MEDS ORDERED: DIVALPROEX 125 MG TAB PO SCH (21:00)
[2022-09-11] MEDS ORDERED: PANTOPRAZOLE 40MG TAB (PROTONIX) PO SCH (21:00)
[2022-09-11] MEDS: ENOXAPARIN 30MG/0.3ML SYRINGE (J1650 PER 10MG) SC SCH (21:15)
[2022-09-11 21:45] VITALS: BP 135/60
[2022-09-11 21:52] LABS: VENOUS PH 7.342 UNITS (7.330-7.430)
[2022-09-11 21:53] LABS: VENOUS BASE EXCESS -5.3 (-2.0-2.0); VENOUS HCO3 19.8 MEQ/L (23.0-27.0); VENOUS O2 SATURATION 79.3 % (60.0-80.0); VENOUS PARTIAL PRESSURE CO2 37.3 mmHg (38.0-50.0); VENOUS STANDARD HCO3 19.7 MEQ/L; VENOUS TOTAL CO2 20.9 MEQ/L (24.0-28.0)
[2022-09-11] MEDS ORDERED: D5W IV ONE (23:00)
[2022-09-11] MEDS ORDERED: VALPROATE SOD IV ONE (23:00)
[2022-09-11] MEDS ORDERED: LACTULOSE 20GM/30ML SYRUP UDC PR ONE (23:00)
[2022-09-11] MEDS ORDERED: NS 500 ML IV ONE (23:00)
[2022-09-12] VITALS: BP 103/59
[2022-09-12] MEDS: LACTULOSE 20GM/30ML SYRUP UDC PO SCH ×2 (01:00→01:05)
[2022-09-12] MEDS: NS 1,000 ML IV SCH ×2 (01:00→10:17)
[2022-09-12 03:54] LABS: BASO % 0.1 % (0.0-1.0); HEMATOCRIT 42.9 % (36.0-47.0); HEMOGLOBIN 14.2 g/dl (12.0-15.5); LYMPH # 1.2 10^3/uL (1.5-5.0); MEAN CORPUSCULAR HEMOGLOBIN 31.1 pg (27.0-33.0); MEAN CORPUSCULAR HGB CONC 33.1 g/dl (32.0-36.5); MEAN CORPUSCULAR VOLUME 93.9 fl (80.0-96.0); MONO # 0.4 10^3/uL (0.0-0.8); MONO % 4.4 % (2.0-8.0); NEUTROPHILS # 8.1 10^3/uL (1.5-8.5); NEUTROPHILS % 83.1 % (36.0-66.0); PLATELET COUNT, AUTOMATED 136 10^3/uL (150-450); RED BLOOD COUNT 4.57 10^6/uL (4.00-5.40); WHITE BLOOD COUNT 9.7 10^3/uL (4.0-10.0)
[2022-09-12 04:13] LABS: ALBUMIN 2.9 G/DL (3.2-5.2); ALKALINE PHOSPHATASE 47 U/L (46-116); ALT/SGPT 29 U/L (7.0-40); AST/SGOT 40 U/L (<34); BILIRUBIN,TOTAL 0.2 MG/DL (0.3-1.2); BLOOD UREA NITROGEN 11 MG/DL (9-23); CALCIUM LEVEL 8.3 MG/DL (8.3-10.6); CARBON DIOXIDE LEVEL 20 MMOL/L (20-31); CHLORIDE LEVEL 112 MMOL/L (98-107); CREATININE FOR GFR 0.47 MG/DL (0.55-1.30); GLOMERULAR FILTRATION RATE > 60.0 (>32); GLUCOSE, FASTING 154 MG/DL (74-106); POTASSIUM SERUM 4.3 MMOL/L (3.5-5.1); SODIUM LEVEL 139 MMOL/L (136-145); TOTAL PROTEIN 6.1 G/DL (5.7-8.2)
[2022-09-12 04:15] VITALS: BP 125/57
[2022-09-12] MEDS: LEVOTHYROXINE 75MCG TABLET (0.075MG) PO SCH (04:55)
[2022-09-12] MEDS ORDERED: D5W IV ONE (05:00)
[2022-09-12] MEDS ORDERED: VALPROATE SOD IV ONE (05:00)
[2022-09-12] MEDS ORDERED: LEVOTHYROXINE 100MCG (0.1MG) 5ML SDV PF (SOLUTION FORM) IV ONE (06:00)
[2022-09-12] MEDS: cefTRIAXone SOD 1 GM in D5W MINI-BAG PLUS 50 ML IV SCH (06:02)
[2022-09-12 08:00] VITALS: BP 114/56
[2022-09-12] MEDS: ASPIRIN 81MG ENTERIC TABLET PO SCH (10:17)
[2022-09-12 11:45] VITALS: BP 106/58
[2022-09-12 15:36] VITALS: BP 107/51
[2022-09-12] MEDS: REMDESIVIR 100 MG in NS 250 ML IV SCH (18:14)
[2022-09-12] MEDS: SODIUM CHLORIDE 0.9% INJ 10 ML SYR IV SCH (18:15)
[2022-09-12] MEDS: ENOXAPARIN 30MG/0.3ML SYRINGE (J1650 PER 10MG) SC SCH (20:45)
[2022-09-12 20:55] VITALS: BP 104/51
[2022-09-12] MEDS: DIVALPROEX SPRINKLE 125 MG CAP PO SCH (22:27)
[2022-09-12] MEDS: PANTOPRAZOLE 40MG VIAL IV SCH (22:28)
[2022-09-13 04:06] VITALS: BP 128/61
[2022-09-13 05:42] LABS: BASO % 0.1 % (0.0-1.0); HEMATOCRIT 40.6 % (36.0-47.0); HEMOGLOBIN 13.3 g/dl (12.0-15.5); LYMPH # 1.9 10^3/uL (1.5-5.0); LYMPH % 17.2 % (24.0-44.0); MEAN CORPUSCULAR HEMOGLOBIN 30.9 pg (27.0-33.0); MEAN CORPUSCULAR HGB CONC 32.8 g/dl (32.0-36.5); MEAN CORPUSCULAR VOLUME 94.4 fl (80.0-96.0); MONO # 0.6 10^3/uL (0.0-0.8); MONO % 5.8 % (2.0-8.0); NEUTROPHILS # 8.4 10^3/uL (1.5-8.5); NEUTROPHILS % 76.5 % (36.0-66.0); PLATELET COUNT, AUTOMATED 142 10^3/uL (150-450); WHITE BLOOD COUNT 10.9 10^3/uL (4.0-10.0)
[2022-09-13 05:58] LABS: INR 1.04; PROTHROMBIN TIME 13.8 SECONDS (12.5-14.5)
[2022-09-13 05:59] LABS: PARTIAL THROMBOPLASTIN TIME 31.6 SECONDS (24.8-34.2)
[2022-09-13] MEDS: LEVOTHYROXINE 75MCG TABLET (0.075MG) PO SCH (06:01)
[2022-09-13] MEDS: cefTRIAXone SOD 1 GM in D5W MINI-BAG PLUS 50 ML IV SCH (06:01)
[2022-09-13 06:07] LABS: LDH LACTATE DEHYDROGENASE 161 U/L (120-246); MAGNESIUM LEVEL 1.8 MG/DL (1.8-2.4)
[2022-09-13 06:08] LABS: BILIRUBIN,DIRECT < 0.1 MG/DL (<0.4)
[2022-09-13 06:12] LABS: FERRITIN 270.9 NG/ML (7.3-270.7)
[2022-09-13 06:14] LABS: ALBUMIN 2.6 G/DL (3.2-5.2); ALKALINE PHOSPHATASE 47 U/L (46-116); ALT/SGPT 26 U/L (7.0-40); AST/SGOT 24 U/L (<34); BILIRUBIN,TOTAL 0.2 MG/DL (0.3-1.2); BLOOD UREA NITROGEN 25 MG/DL (9-23); CALCIUM LEVEL 8.5 MG/DL (8.3-10.6); CARBON DIOXIDE LEVEL 21 MMOL/L (20-31); CHLORIDE LEVEL 112 MMOL/L (98-107); CPK CREATINE PHOSPHOKINASE 25 U/L (34-145); CREATININE FOR GFR 0.56 MG/DL (0.55-1.30); GLOMERULAR FILTRATION RATE > 60.0 (>32); GLUCOSE, FASTING 124 MG/DL (74-106); POTASSIUM SERUM 5.1 MMOL/L (3.5-5.1); SODIUM LEVEL 144 MMOL/L (136-145); TOTAL PROTEIN 5.1 G/DL (5.7-8.2)
[2022-09-13 08:00] VITALS: BP 115/58
[2022-09-13] MEDS: ASPIRIN 81MG ENTERIC TABLET PO SCH (08:58)
[2022-09-13] MEDS ORDERED: ASPI81TAEC PO (09:30)
[2022-09-13] MEDS ORDERED: BACI1CAP PO (09:30)
[2022-09-13] MEDS ORDERED: CEFD300CAP PO (09:30)
[2022-09-13] MEDS ORDERED: NIRM1TAB6 PO (09:30)
[2022-09-13] MEDS ORDERED: PRED10TA2 PO (09:30)
[2022-09-13 16:00] VITALS: BP 118/59
[2022-09-13] MEDS: REMDESIVIR 100 MG in NS 250 ML IV SCH (18:57)
[2022-09-13] MEDS: SODIUM CHLORIDE 0.9% INJ 10 ML SYR IV SCH (18:58)
[2022-09-13 20:00] VITALS: BP 131/57
[2022-09-13] MEDS: PANTOPRAZOLE 40MG VIAL IV SCH (20:54)
[2022-09-13] MEDS: DIVALPROEX SPRINKLE 125 MG CAP PO SCH (20:56)
[2022-09-13] MEDS: ENOXAPARIN 30MG/0.3ML SYRINGE (J1650 PER 10MG) SC SCH (20:56)
[2022-09-13 23:00] VITALS: O2SAT 98
[2022-09-14] VITALS (23 sets, daily range): BP systolic 120–141; BP diastolic 58–62; O2SAT 88–99
[2022-09-14 05:43] LABS: BASO % 0.1 % (0.0-1.0); HEMOGLOBIN 12.8 g/dl (12.0-15.5); LYMPH # 1.9 10^3/uL (1.5-5.0); LYMPH % 20.5 % (24.0-44.0); MEAN CORPUSCULAR HEMOGLOBIN 30.6 pg (27.0-33.0); MEAN CORPUSCULAR HGB CONC 33.7 g/dl (32.0-36.5); MEAN CORPUSCULAR VOLUME 90.9 fl (80.0-96.0); MONO # 0.7 10^3/uL (0.0-0.8); MONO % 7.1 % (2.0-8.0); NEUTROPHILS # 6.6 10^3/uL (1.5-8.5); NEUTROPHILS % 72.1 % (36.0-66.0); PLATELET COUNT, AUTOMATED 164 10^3/uL (150-450); RED BLOOD COUNT 4.18 10^6/uL (4.00-5.40); WHITE BLOOD COUNT 9.1 10^3/uL (4.0-10.0)
[2022-09-14 06:01] LABS: MAGNESIUM LEVEL 1.8 MG/DL (1.8-2.4)
[2022-09-14 06:06] LABS: ALBUMIN 2.6 G/DL (3.2-5.2); ALKALINE PHOSPHATASE 48 U/L (46-116); ALT/SGPT 23 U/L (7.0-40); AST/SGOT 16 U/L (<34); BILIRUBIN,TOTAL 0.2 MG/DL (0.3-1.2); BLOOD UREA NITROGEN 28 MG/DL (9-23); CALCIUM LEVEL 8.3 MG/DL (8.3-10.6); CARBON DIOXIDE LEVEL 20 MMOL/L (20-31); CHLORIDE LEVEL 111 MMOL/L (98-107); CREATININE FOR GFR 0.63 MG/DL (0.55-1.30); GLOMERULAR FILTRATION RATE > 60.0 (>32); GLUCOSE, FASTING 150 MG/DL (74-106); POTASSIUM SERUM 3.9 MMOL/L (3.5-5.1); SODIUM LEVEL 143 MMOL/L (136-145); TOTAL PROTEIN 5.4 G/DL (5.7-8.2)
[2022-09-14] MEDS: cefTRIAXone SOD 1 GM in D5W MINI-BAG PLUS 50 ML IV SCH (06:13)
[2022-09-14] MEDS: LEVOTHYROXINE 75MCG TABLET (0.075MG) PO SCH (06:13)
[2022-09-14] MEDS: ASPIRIN 81MG ENTERIC TABLET PO SCH (09:45)
[2022-09-14] MEDS: REMDESIVIR 100 MG in NS 250 ML IV SCH (20:24)
[2022-09-14] MEDS: PANTOPRAZOLE 40MG VIAL IV SCH (20:24)
[2022-09-14] MEDS: ENOXAPARIN 30MG/0.3ML SYRINGE (J1650 PER 10MG) SC SCH (20:24)
[2022-09-14] MEDS: DIVALPROEX SPRINKLE 125 MG CAP PO SCH (20:25)
[2022-09-14] MEDS: DOXYCYCLINE HYCLATE 100MG TABLET PO SCH (20:25)
[2022-09-14] MEDS: SODIUM CHLORIDE 0.9% INJ 10 ML SYR IV SCH (22:19)
[2022-09-15] VITALS (9 sets, daily range): BP systolic 118–139; BP diastolic 59–63; O2SAT 86–99
[2022-09-15] MEDS: NYSTATIN 100,000 UNITS/GM TOPICAL PWD 15GM TOP SCH ×2 (00:23→09:39)
[2022-09-15 04:17] LABS: HEMATOCRIT 38.2 % (36.0-47.0); HEMOGLOBIN 12.6 g/dl (12.0-15.5); LYMPH # 1.3 10^3/uL (1.5-5.0); MEAN CORPUSCULAR HEMOGLOBIN 30.4 pg (27.0-33.0); MONO # 0.4 10^3/uL (0.0-0.8); MONO % 6.6 % (2.0-8.0); NEUTROPHILS # 4.2 10^3/uL (1.5-8.5); NEUTROPHILS % 70.9 % (36.0-66.0); PLATELET COUNT, AUTOMATED 152 10^3/uL (150-450); RED BLOOD COUNT 4.15 10^6/uL (4.00-5.40); WHITE BLOOD COUNT 5.9 10^3/uL (4.0-10.0)
[2022-09-15 04:25] LABS: INR 1.14; PROTHROMBIN TIME 14.8 SECONDS (12.5-14.5)
[2022-09-15 04:26] LABS: PARTIAL THROMBOPLASTIN TIME 29.8 SECONDS (24.8-34.2)
[2022-09-15 04:35] LABS: LDH LACTATE DEHYDROGENASE 146 U/L (120-246); MAGNESIUM LEVEL 1.7 MG/DL (1.8-2.4)
[2022-09-15 04:36] LABS: ALBUMIN 2.4 G/DL (3.2-5.2); ALKALINE PHOSPHATASE 43 U/L (46-116); ALT/SGPT 20 U/L (7.0-40); AST/SGOT 15 U/L (<34); BILIRUBIN,DIRECT < 0.1 MG/DL (<0.4); BILIRUBIN,TOTAL 0.2 MG/DL (0.3-1.2); BLOOD UREA NITROGEN 25 MG/DL (9-23); CALCIUM LEVEL 8.1 MG/DL (8.3-10.6); CARBON DIOXIDE LEVEL 23 MMOL/L (20-31); CHLORIDE LEVEL 111 MMOL/L (98-107); CPK CREATINE PHOSPHOKINASE 26 U/L (34-145); CREATININE FOR GFR 0.67 MG/DL (0.55-1.30); GLOMERULAR FILTRATION RATE > 60.0 (>32); GLUCOSE, FASTING 208 MG/DL (74-106); POTASSIUM SERUM 4.3 MMOL/L (3.5-5.1); SODIUM LEVEL 142 MMOL/L (136-145); TOTAL PROTEIN 5.2 G/DL (5.7-8.2)
[2022-09-15 04:38] LABS: FERRITIN 301.8 NG/ML (7.3-270.7)
[2022-09-15] MEDS: LEVOTHYROXINE 75MCG TABLET (0.075MG) PO SCH (05:56)
[2022-09-15] MEDS ORDERED: LACTOBACILLUS ACIDOPHILUS CAP (BACID) PO SCH (08:00)
[2022-09-15] MEDS ORDERED: CEFDINIR 300 MG CAP (OMNICEF) PO SCH (09:00)
[2022-09-15] MEDS: DOXYCYCLINE HYCLATE 100MG TABLET PO SCH (09:38)
[2022-09-15] MEDS: ASPIRIN 81MG ENTERIC TABLET PO SCH (09:38)
== END 2022-09-15 13:28 | disposition home or self-care (01) | DRG 177 ==
LOC: EDBD 11:21 → EDSEX 11:21 → M ED 11:21 → M ED INP 15:26 → M PCU 18:28
PROVIDERS: ADMIT Internal Medicine Nephrology; ATTEND General Practice
DX: U07.1 COVID-19 (principal); G93.41 Metabolic encephalopathy; J96.01 Acute respiratory failure with hypoxia; E87.3 Alkalosis; I71.43 Infrarenal abdominal aortic aneurysm, without rupture; K21.9 Gastro-esophageal reflux disease without esophagitis; E86.0 Dehydration; E83.42 Hypomagnesemia; E11.9 Type 2 diabetes mellitus without complications; M19.90 Unspecified osteoarthritis, unspecified site; M10.9 Gout, unspecified; N20.0 Calculus of kidney; E03.9 Hypothyroidism, unspecified; F31.9 Bipolar disorder, unspecified; K59.01 Slow transit constipation; H91.90 Unspecified hearing loss, unspecified ear; K57.30 Diverticulosis of large intestine without perforation or abscess without bleeding; I10 Essential (primary) hypertension; J20.9 Acute bronchitis, unspecified; K80.20 Calculus of gallbladder without cholecystitis without obstruction; K42.9 Umbilical hernia without obstruction or gangrene; J84.10 Pulmonary fibrosis, unspecified; K76.0 Fatty (change of) liver, not elsewhere classified; Z88.8 Allergy status to other drugs, medicaments and biological substances; Z79.899 Other long term (current) drug therapy; Z79.82 Long term (current) use of aspirin; Z85.3 Personal history of malignant neoplasm of breast

== ENCOUNTER 2022-09-15 10:59 | Inpatient (IN) | payer MEDICARE, OTHER ==
[~2022-09-15] VITALS: Ht 152.4 cm; Wt 48.2 kg
[~2022-09-15 10:59] MED LIST changes: +AMLO2.5T3 PO; +ASPI81TAEC PO; +BACI1CAP PO; +CEFD300CAP PO; +DIVA1TAB48 PO; +NIRM1TAB6 PO; +PRED10TA2 PO
[2022-09-15 14:00] VITALS: BP 140/68
[2022-09-15] MEDS ORDERED: ONDANSETRON 4MG TAB PO PRN (14:15)
[2022-09-15] MEDS ORDERED: ACETAMINOPHEN TAB 650MG DOSE (2X325MG) PO PRN (14:15)
[2022-09-15] MEDS ORDERED: BISACODYL 10MG SUPP PR PRN (14:15)
[2022-09-15] MEDS: guaiFENesin 200 MG TAB PO SCH ×2 (16:00→20:13)
[2022-09-15] MEDS: REMEDY PHYTOPLEX Z-GUARD PASTE 113GM TUBE (FROM STOREROOM PRODUCT) TOP SCH ×2 (16:00→20:14)
[2022-09-15] MEDS: LACTOBACILLUS ACIDOPHILUS CAP (BACID) PO SCH ×2 (17:01→20:12)
[2022-09-15] MEDS ORDERED: REMDESIVIR 100 MG in NS 250 ML IV ONE (18:00)
[2022-09-15] MEDS: ALBUTEROL 90 MCG/ACT 8GM HFA INHALER INH SCH (19:54)
[2022-09-15 20:00] VITALS: BP 134/65
[2022-09-15] MEDS: DOCUSATE SODIUM 100MG CAPSULE PO SCH (20:03)
[2022-09-15] MEDS: CEFDINIR 300 MG CAP (OMNICEF) PO SCH (20:12)
[2022-09-15] MEDS: HEPARIN SOD (PORCINE) 5000UNITS/ML 1ML VIAL/SYRINGE SC SCH (20:13)
[2022-09-15] MEDS: PANTOPRAZOLE 40MG TAB (PROTONIX) PO SCH (20:13)
[2022-09-15] MEDS: NYSTATIN 100,000 UNITS/GM TOPICAL PWD 15GM TOP SCH (20:14)
[2022-09-15] MEDS ORDERED: DIVALPROEX 125 MG TAB PO SCH (21:00)
[2022-09-15] MEDS ORDERED: SENNA 8.6 MG TAB (SENOKOT) PO SCH (21:00)
[2022-09-16 05:57] VITALS: BP 148/72
[2022-09-16] MEDS ORDERED: LEVOTHYROXINE 75MCG TABLET (0.075MG) PO SCH (06:00)
[2022-09-16 06:05] LABS: BASO % 0.1 % (0.0-1.0); HEMATOCRIT 38.5 % (36.0-47.0); HEMOGLOBIN 13.1 g/dl (12.0-15.5); LYMPH % 29.9 % (24.0-44.0); MEAN CORPUSCULAR HEMOGLOBIN 30.8 pg (27.0-33.0); MEAN CORPUSCULAR VOLUME 90.4 fl (80.0-96.0); MONO # 0.6 10^3/uL (0.0-0.8); MONO % 8.8 % (2.0-8.0); NEUTROPHILS # 4.1 10^3/uL (1.5-8.5); NEUTROPHILS % 60.6 % (36.0-66.0); PLATELET COUNT, AUTOMATED 175 10^3/uL (150-450); RED BLOOD COUNT 4.26 10^6/uL (4.00-5.40); WHITE BLOOD COUNT 6.7 10^3/uL (4.0-10.0)
[2022-09-16 06:31] LABS: ALBUMIN 2.3 G/DL (3.2-5.2); ALKALINE PHOSPHATASE 39 U/L (46-116); ALT/SGPT 20 U/L (7.0-40); AST/SGOT 10 U/L (<34); BILIRUBIN,TOTAL 0.3 MG/DL (0.3-1.2); BLOOD UREA NITROGEN 23 MG/DL (9-23); CALCIUM LEVEL 8.1 MG/DL (8.3-10.6); CARBON DIOXIDE LEVEL 23 MMOL/L (20-31); CHLORIDE LEVEL 109 MMOL/L (98-107); CREATININE FOR GFR 0.47 MG/DL (0.55-1.30); GLOMERULAR FILTRATION RATE > 60.0 (>32); GLUCOSE, FASTING 137 MG/DL (74-106); POTASSIUM SERUM 4.3 MMOL/L (3.5-5.1); SODIUM LEVEL 141 MMOL/L (136-145); TOTAL PROTEIN 4.7 G/DL (5.7-8.2)
[2022-09-16] MEDS: ALBUTEROL 90 MCG/ACT 8GM HFA INHALER INH SCH ×2 (07:37→13:43)
[2022-09-16] MEDS ORDERED: BUDESONIDE 0.5 MG/2 ML INHALATION SUSPENSION INH SCH (08:00)
[2022-09-16] MEDS ORDERED: MULTIVITAMINS/MINERALS THERAP 1 TAB PO SCH (09:00)
[2022-09-16] MEDS: DOCUSATE SODIUM 100MG CAPSULE PO SCH (09:00)
[2022-09-16] MEDS ORDERED: predniSONE 20 MG TAB PO SCH (09:00)
[2022-09-16] MEDS ORDERED: ASPIRIN 81MG ENTERIC TABLET PO SCH (09:00)
[2022-09-16 09:04] VITALS: BP 148/72
[2022-09-16] MEDS: CEFDINIR 300 MG CAP (OMNICEF) PO SCH (09:04)
[2022-09-16] MEDS: guaiFENesin 200 MG TAB PO SCH ×2 (09:04→17:36)
[2022-09-16] MEDS: LACTOBACILLUS ACIDOPHILUS CAP (BACID) PO SCH ×3 (09:04→17:34)
[2022-09-16] MEDS: HEPARIN SOD (PORCINE) 5000UNITS/ML 1ML VIAL/SYRINGE SC SCH (09:05)
[2022-09-16] MEDS: PANTOPRAZOLE 40MG TAB (PROTONIX) PO SCH (09:05)
[2022-09-16] MEDS: NYSTATIN 100,000 UNITS/GM TOPICAL PWD 15GM TOP SCH (09:07)
[2022-09-16] MEDS: REMEDY PHYTOPLEX Z-GUARD PASTE 113GM TUBE (FROM STOREROOM PRODUCT) TOP SCH ×2 (09:07→17:34)
[2022-09-16 09:16] VITALS: BP 131/68
[2022-09-16] MEDS ORDERED: ISOVUE-370 76% 100ML VIAL As Ordered ONE (10:23)
[2022-09-16 11:12] LABS: CK-MB VALUE MASS < 1.0 NG/ML (<3.6)
[2022-09-16 11:14] LABS: CPK CREATINE PHOSPHOKINASE 21 U/L (34-145); MB/CK RELATIVE INDEX 4.76 (< OR =4)
[2022-09-16 11:17] LABS: T UPTAKE 46.1 % (22.5-37.0); THYROID STIMULATING HORMONE 0.519 uIU/ML (0.55-4.78); THYROXINE (T4) 8.7 UG/DL (4.5-10.9)
[2022-09-16] MEDS ORDERED: GLUCOSE 4GM CHEW TABLET PO PRN (13:50)
[2022-09-16] MEDS ORDERED: GLUCAGON INJ 1MG VIAL SC PRN (13:50)
[2022-09-16] MEDS ORDERED: DEXTROSE 50% 50ML SYRINGE IV PRN (13:50)
[2022-09-16 14:00] VITALS: BP 123/67
[2022-09-16 14:03] LABS: ABG BASE EXCESS -0.9 (-2.0-2.0); ABG HCO3 17.7 MEQ/L (22.0-26.0); ABG O2 SATURATION 98.6 % (95.0-99.0); ABG PARTIAL PRESSURE O2 108.8 mmHg (75.0-100.0); ABG STANDARD HCO3 23.8 MEQ/L (22.0-26.0); ABG TOTAL CO2 18.2 MEQ/L (23.0-31.0)
[2022-09-16 14:06] LABS: ABG pH (ARTERIAL) 7.603 UNITS (7.350-7.450)
[2022-09-16 14:07] LABS: ABG PARTIAL PRESSURE CO2 18.3 mmHg (35.0-45.0)
[2022-09-16] MEDS ORDERED: INSULIN LISPRO (NovoLOG) PER UNIT SC SCH ×2 (17:30→21:00)
[2022-09-17] MEDS ORDERED: LEVOTHYROXINE 50MCG TABLET (0.05MG) PO SCH (06:00)
== END 2022-09-16 17:45 | disposition short-term general hospital (02) | DRG 70 ==
LOC: M PM&R 13:30
PROVIDERS: ADMIT Physical Medicine & Rehabilitation; ATTEND Physical Medicine & Rehabilitation
DX: G93.41 Metabolic encephalopathy (principal); U07.1 COVID-19; I10 Essential (primary) hypertension; R26.89 Other abnormalities of gait and mobility; K21.9 Gastro-esophageal reflux disease without esophagitis; M10.9 Gout, unspecified; Z85.3 Personal history of malignant neoplasm of breast; E03.9 Hypothyroidism, unspecified; Z85.51 Personal history of malignant neoplasm of bladder; F31.9 Bipolar disorder, unspecified; G50.0 Trigeminal neuralgia; Z79.82 Long term (current) use of aspirin; Z79.899 Other long term (current) drug therapy; Z88.8 Allergy status to other drugs, medicaments and biological substances; E11.9 Type 2 diabetes mellitus without complications; Z92.3 Personal history of irradiation; J20.9 Acute bronchitis, unspecified; R13.10 Dysphagia, unspecified

== ENCOUNTER 2022-09-16 17:18 | Inpatient (IN) | payer MEDICARE, OTHER ==
[2022-09-16] VITALS (11 sets, daily range): BP systolic 107–147; BP diastolic 56–65
[2022-09-16] MEDS ORDERED: HEPARIN SOD (PORCINE) 5000UNITS/ML 1ML VIAL/SYRINGE SC SCH (18:38)
[2022-09-16] MEDS ORDERED: ONDANSETRON 4MG TAB PO PRN (18:38)
[2022-09-16] MEDS ORDERED: NYSTATIN 100,000 UNITS/GM TOPICAL PWD 15GM TOP SCH (18:38)
[2022-09-16] MEDS ORDERED: REMDESIVIR 100 MG in NS 250 ML IV ONE (18:38)
[2022-09-16] MEDS ORDERED: MULTIVITAMINS/MINERALS THERAP 1 TAB PO SCH (18:38)
[2022-09-16] MEDS ORDERED: ASPIRIN 81MG ENTERIC TABLET PO SCH (18:38)
[2022-09-16] MEDS ORDERED: predniSONE 20 MG TAB PO SCH (18:38)
[2022-09-16] MEDS ORDERED: BUDESONIDE 0.5 MG/2 ML INHALATION SUSPENSION INH SCH (18:38)
[2022-09-16] MEDS ORDERED: PANTOPRAZOLE 40MG TAB (PROTONIX) PO SCH (18:38)
[2022-09-16] MEDS ORDERED: CEFDINIR 300 MG CAP (OMNICEF) PO SCH (18:38)
[2022-09-16] MEDS ORDERED: SENNA 8.6 MG TAB (SENOKOT) PO SCH (18:38)
[2022-09-16] MEDS ORDERED: GLUCOSE 4GM CHEW TABLET PO PRN (18:38)
[2022-09-16] MEDS ORDERED: DOCUSATE SODIUM 100MG CAPSULE PO SCH (18:38)
[2022-09-16] MEDS ORDERED: LEVOTHYROXINE 75MCG TABLET (0.075MG) PO SCH (18:38)
[2022-09-16] MEDS ORDERED: INSULIN LISPRO (NovoLOG) PER UNIT SC SCH (18:38)
[2022-09-16] MEDS ORDERED: GLUCAGON INJ 1MG VIAL SC PRN (18:38)
[2022-09-16] MEDS ORDERED: BISACODYL 10MG SUPP PR PRN (18:38)
[2022-09-16] MEDS ORDERED: guaiFENesin 200 MG TAB PO SCH (18:38)
[2022-09-16] MEDS ORDERED: REMEDY PHYTOPLEX Z-GUARD PASTE 113GM TUBE (FROM STOREROOM PRODUCT) TOP SCH (18:38)
[2022-09-16] MEDS ORDERED: DEXTROSE 50% 50ML SYRINGE IV PRN (18:38)
[2022-09-16] MEDS ORDERED: DIVALPROEX 125 MG TAB PO SCH (18:38)
[2022-09-16] MEDS ORDERED: ALBUTEROL 90 MCG/ACT 8GM HFA INHALER INH SCH (18:38)
[2022-09-16] MEDS ORDERED: LACTOBACILLUS ACIDOPHILUS CAP (BACID) PO SCH (18:38)
[2022-09-16] MEDS ORDERED: ACETAMINOPHEN TAB 650MG DOSE (2X325MG) PO PRN (18:38)
[2022-09-16 19:17] LABS: HEMATOCRIT 40.8 % (36.0-47.0); LYMPH # 1.6 10^3/uL (1.5-5.0); LYMPH % 22.4 % (24.0-44.0); MEAN CORPUSCULAR HEMOGLOBIN 30.6 pg (27.0-33.0); MEAN CORPUSCULAR HGB CONC 34.3 g/dl (32.0-36.5); MEAN CORPUSCULAR VOLUME 89.1 fl (80.0-96.0); MONO # 0.3 10^3/uL (0.0-0.8); NEUTROPHILS % 72.3 % (36.0-66.0); PLATELET COUNT, AUTOMATED 209 10^3/uL (150-450); RED BLOOD COUNT 4.58 10^6/uL (4.00-5.40); WHITE BLOOD COUNT 6.9 10^3/uL (4.0-10.0)
[2022-09-16 19:31] LABS: ERYTHROCYTE SEDIMENTATION RATE 6 mm/hr (0-30)
[2022-09-16] MEDS ORDERED: NS 500 ML IV ONE (19:45)
[2022-09-16] MEDS ORDERED: NS 1,000 ML IV SCH (19:45)
[2022-09-16 19:53] LABS: ALBUMIN 2.6 G/DL (3.2-5.2); ALKALINE PHOSPHATASE 44 U/L (46-116); ALT/SGPT 21 U/L (7.0-40); AST/SGOT 19 U/L (<34); BILIRUBIN,TOTAL 0.4 MG/DL (0.3-1.2); BLOOD UREA NITROGEN 28 MG/DL (9-23); CALCIUM LEVEL 8.6 MG/DL (8.3-10.6); CARBON DIOXIDE LEVEL 18 MMOL/L (20-31); CHLORIDE LEVEL 105 MMOL/L (98-107); CK-MB VALUE MASS < 1.0 NG/ML (<3.6); CPK CREATINE PHOSPHOKINASE 31 U/L (34-145); CREATININE FOR GFR 0.58 MG/DL (0.55-1.30); FREE THYROXINE INDEX 3.6 % (1.3-4.8); GLOMERULAR FILTRATION RATE > 60.0 (>32); GLUCOSE, FASTING 241 MG/DL (74-106); MB/CK RELATIVE INDEX 3.22 (< OR =4); POTASSIUM SERUM 4.4 MMOL/L (3.5-5.1); SODIUM LEVEL 137 MMOL/L (136-145); T UPTAKE 43.4 % (22.5-37.0); THYROID STIMULATING HORMONE 0.438 uIU/ML (0.55-4.78); THYROXINE (T4) 8.2 UG/DL (4.5-10.9); TOTAL PROTEIN 5.7 G/DL (5.7-8.2)
[2022-09-16] MEDS: ALBUTEROL 90 MCG/ACT 8GM HFA INHALER INH SCH (20:02)
[2022-09-16] MEDS: BUDESONIDE 0.5 MG/2 ML INHALATION SUSPENSION INH SCH (20:02)
[2022-09-16] MEDS: HEPARIN SOD (PORCINE) 5000UNITS/ML 1ML VIAL/SYRINGE SC SCH (20:22)
[2022-09-16] MEDS: INSULIN LISPRO (NovoLOG) PER UNIT SC SCH (20:22)
[2022-09-16] MEDS: guaiFENesin 200 MG TAB PO SCH (20:23)
[2022-09-16] MEDS: CEFDINIR 300 MG CAP (OMNICEF) PO SCH (20:23)
[2022-09-16] MEDS: LACTOBACILLUS ACIDOPHILUS CAP (BACID) PO SCH (20:23)
[2022-09-16] MEDS: DOCUSATE SODIUM 100MG CAPSULE PO SCH (20:23)
[2022-09-16] MEDS: DIVALPROEX 125 MG TAB PO SCH (20:24)
[2022-09-16] MEDS: PANTOPRAZOLE 40MG TAB (PROTONIX) PO SCH (20:24)
[2022-09-16] MEDS: SENNA 8.6 MG TAB (SENOKOT) PO SCH (20:24)
[2022-09-16] MEDS: NYSTATIN 100,000 UNITS/GM TOPICAL PWD 15GM TOP SCH (21:04)
[2022-09-16] MEDS: REMEDY PHYTOPLEX Z-GUARD PASTE 113GM TUBE (FROM STOREROOM PRODUCT) TOP SCH (21:05)
[2022-09-16 22:21] LABS: ABG BASE EXCESS -1.3 (-2.0-2.0); ABG O2 SATURATION 98.3 % (95.0-99.0); ABG PARTIAL PRESSURE CO2 19.3 mmHg (35.0-45.0); ABG PARTIAL PRESSURE O2 112.3 mmHg (75.0-100.0); ABG STANDARD HCO3 23.4 MEQ/L (22.0-26.0); ABG TOTAL CO2 18.6 MEQ/L (23.0-31.0); ABG pH (ARTERIAL) 7.588 UNITS (7.350-7.450)
[2022-09-17] VITALS (8 sets, daily range): BP systolic 116–141; BP diastolic 58–67
[2022-09-17 03:45] LABS: BASO % 0.1 % (0.0-1.0); HEMATOCRIT 36.1 % (36.0-47.0); HEMOGLOBIN 12.5 g/dl (12.0-15.5); LYMPH # 1.4 10^3/uL (1.5-5.0); LYMPH % 17.6 % (24.0-44.0); MEAN CORPUSCULAR HEMOGLOBIN 30.8 pg (27.0-33.0); MEAN CORPUSCULAR HGB CONC 34.6 g/dl (32.0-36.5); MEAN CORPUSCULAR VOLUME 88.9 fl (80.0-96.0); MONO # 0.3 10^3/uL (0.0-0.8); MONO % 3.3 % (2.0-8.0); NEUTROPHILS # 6.1 10^3/uL (1.5-8.5); NEUTROPHILS % 78.2 % (36.0-66.0); PLATELET COUNT, AUTOMATED 198 10^3/uL (150-450); RED BLOOD COUNT 4.06 10^6/uL (4.00-5.40); WHITE BLOOD COUNT 7.8 10^3/uL (4.0-10.0)
[2022-09-17 04:20] LABS: BLOOD UREA NITROGEN 25 MG/DL (9-23); CARBON DIOXIDE LEVEL 22 MMOL/L (20-31); CHLORIDE LEVEL 109 MMOL/L (98-107); CREATININE FOR GFR 0.49 MG/DL (0.55-1.30); GLOMERULAR FILTRATION RATE > 60.0 (>32); GLUCOSE, FASTING 209 MG/DL (74-106); POTASSIUM SERUM 4.6 MMOL/L (3.5-5.1); SODIUM LEVEL 139 MMOL/L (136-145)
[2022-09-17] MEDS: LEVOTHYROXINE 50MCG TABLET (0.05MG) PO SCH (05:48)
[2022-09-17] MEDS: ALBUTEROL 90 MCG/ACT 8GM HFA INHALER INH SCH ×3 (07:15→19:41)
[2022-09-17] MEDS: BUDESONIDE 0.5 MG/2 ML INHALATION SUSPENSION INH SCH ×2 (07:15→19:42)
[2022-09-17] MEDS ORDERED: ALPRAZolam 0.25 MG TAB PO ONE (08:05)
[2022-09-17] MEDS ORDERED: NS 1,000 ML IV SCH (08:05)
[2022-09-17] MEDS: MULTIVITAMINS/MINERALS THERAP 1 TAB PO SCH (08:23)
[2022-09-17] MEDS: ASPIRIN 81MG ENTERIC TABLET PO SCH (08:23)
[2022-09-17] MEDS: HEPARIN SOD (PORCINE) 5000UNITS/ML 1ML VIAL/SYRINGE SC SCH ×2 (08:23→20:16)
[2022-09-17] MEDS: PANTOPRAZOLE 40MG TAB (PROTONIX) PO SCH ×2 (08:24→20:16)
[2022-09-17] MEDS: CEFDINIR 300 MG CAP (OMNICEF) PO SCH ×2 (08:24→20:17)
[2022-09-17] MEDS: DOCUSATE SODIUM 100MG CAPSULE PO SCH ×2 (08:24→20:16)
[2022-09-17] MEDS: LACTOBACILLUS ACIDOPHILUS CAP (BACID) PO SCH ×4 (08:24→20:16)
[2022-09-17] MEDS: guaiFENesin 200 MG TAB PO SCH ×3 (08:24→20:16)
[2022-09-17] MEDS: NYSTATIN 100,000 UNITS/GM TOPICAL PWD 15GM TOP SCH ×2 (08:27→20:20)
[2022-09-17] MEDS: predniSONE 10 MG TAB PO SCH (08:30)
[2022-09-17] MEDS: INSULIN LISPRO (NovoLOG) PER UNIT SC SCH ×4 (08:33→20:18)
[2022-09-17] MEDS ORDERED: predniSONE 20 MG TAB PO SCH (09:00)
[2022-09-17] MEDS: REMEDY PHYTOPLEX Z-GUARD PASTE 113GM TUBE (FROM STOREROOM PRODUCT) TOP SCH ×3 (09:00→20:20)
[2022-09-17] MEDS: DIVALPROEX 125 MG TAB PO SCH (20:17)
[2022-09-17] MEDS: SENNA 8.6 MG TAB (SENOKOT) PO SCH (20:17)
[2022-09-18 04:00] VITALS: BP 123/62
[2022-09-18 04:39] LABS: BASO % 0.2 % (0.0-1.0); EOS % 0.4 % (0.0-3.0); HEMATOCRIT 36.2 % (36.0-47.0); HEMOGLOBIN 12.3 g/dl (12.0-15.5); LYMPH # 3.4 10^3/uL (1.5-5.0); LYMPH % 36.5 % (24.0-44.0); MEAN CORPUSCULAR HEMOGLOBIN 31.1 pg (27.0-33.0); MEAN CORPUSCULAR VOLUME 91.4 fl (80.0-96.0); MONO # 0.8 10^3/uL (0.0-0.8); MONO % 8.8 % (2.0-8.0); NEUTROPHILS # 4.7 10^3/uL (1.5-8.5); NEUTROPHILS % 50.3 % (36.0-66.0); PLATELET COUNT, AUTOMATED 203 10^3/uL (150-450); RED BLOOD COUNT 3.96 10^6/uL (4.00-5.40); WHITE BLOOD COUNT 9.2 10^3/uL (4.0-10.0)
[2022-09-18 05:10] LABS: BLOOD UREA NITROGEN 16 MG/DL (9-23); CALCIUM LEVEL 7.8 MG/DL (8.3-10.6); CARBON DIOXIDE LEVEL 23 MMOL/L (20-31); CHLORIDE LEVEL 110 MMOL/L (98-107); CREATININE FOR GFR 0.58 MG/DL (0.55-1.30); GLOMERULAR FILTRATION RATE > 60.0 (>32); GLUCOSE, FASTING 124 MG/DL (74-106); SODIUM LEVEL 140 MMOL/L (136-145)
[2022-09-18] MEDS: LEVOTHYROXINE 50MCG TABLET (0.05MG) PO SCH (05:41)
[2022-09-18] MEDS: BUDESONIDE 0.5 MG/2 ML INHALATION SUSPENSION INH SCH ×2 (07:30→21:00)
[2022-09-18] MEDS: INSULIN LISPRO (NovoLOG) PER UNIT SC SCH ×4 (07:30→20:15)
[2022-09-18] MEDS: ALBUTEROL 90 MCG/ACT 8GM HFA INHALER INH SCH ×3 (07:30→21:00)
[2022-09-18] MEDS ORDERED: HOME MED LIST COMPLETE! XX SCH (07:50)
[2022-09-18 08:45] VITALS: BP 122/58
[2022-09-18] MEDS: HEPARIN SOD (PORCINE) 5000UNITS/ML 1ML VIAL/SYRINGE SC SCH ×2 (08:50→20:15)
[2022-09-18] MEDS: NYSTATIN 100,000 UNITS/GM TOPICAL PWD 15GM TOP SCH ×2 (08:50→20:15)
[2022-09-18] MEDS: ASPIRIN 81MG ENTERIC TABLET PO SCH (08:51)
[2022-09-18] MEDS: DOCUSATE SODIUM 100MG CAPSULE PO SCH ×2 (08:51→20:14)
[2022-09-18] MEDS: MULTIVITAMINS/MINERALS THERAP 1 TAB PO SCH (08:51)
[2022-09-18] MEDS: predniSONE 10 MG TAB PO SCH (08:51)
[2022-09-18] MEDS: CEFDINIR 300 MG CAP (OMNICEF) PO SCH ×2 (08:51→20:15)
[2022-09-18] MEDS: LACTOBACILLUS ACIDOPHILUS CAP (BACID) PO SCH ×4 (08:51→20:15)
[2022-09-18] MEDS: PANTOPRAZOLE 40MG TAB (PROTONIX) PO SCH ×2 (08:51→20:14)
[2022-09-18] MEDS: guaiFENesin 200 MG TAB PO SCH ×3 (08:52→20:17)
[2022-09-18 09:14] LABS: C REACTIVE PROTEIN QUANTITATIV < 0.40 MG/DL (<1.0)
[2022-09-18] MEDS: REMEDY PHYTOPLEX Z-GUARD PASTE 113GM TUBE (FROM STOREROOM PRODUCT) TOP SCH ×3 (09:15→20:15)
[2022-09-18 20:11] VITALS: BP 122/59
[2022-09-18] MEDS: SENNA 8.6 MG TAB (SENOKOT) PO SCH (20:14)
[2022-09-18] MEDS: DIVALPROEX 125 MG TAB PO SCH (20:15)
[2022-09-18 21:13] VITALS: BP 126/51
[2022-09-19] MEDS: LEVOTHYROXINE 50MCG TABLET (0.05MG) PO SCH (05:35)
[2022-09-19 06:01] LABS: BASO % 0.2 % (0.0-1.0); EOS % 0.5 % (0.0-3.0); HEMATOCRIT 34.2 % (36.0-47.0); HEMOGLOBIN 11.8 g/dl (12.0-15.5); LYMPH # 2.6 10^3/uL (1.5-5.0); LYMPH % 30.3 % (24.0-44.0); MEAN CORPUSCULAR HEMOGLOBIN 31.1 pg (27.0-33.0); MEAN CORPUSCULAR HGB CONC 34.5 g/dl (32.0-36.5); MONO % 11.1 % (2.0-8.0); NEUTROPHILS # 4.6 10^3/uL (1.5-8.5); NEUTROPHILS % 53.2 % (36.0-66.0); PLATELET COUNT, AUTOMATED 229 10^3/uL (150-450); WHITE BLOOD COUNT 8.7 10^3/uL (4.0-10.0)
[2022-09-19 06:03] VITALS: BP 107/52
[2022-09-19 06:46] LABS: BLOOD UREA NITROGEN 25 MG/DL (9-23); CALCIUM LEVEL 7.8 MG/DL (8.3-10.6); CARBON DIOXIDE LEVEL 24 MMOL/L (20-31); CHLORIDE LEVEL 108 MMOL/L (98-107); CREATININE FOR GFR 0.71 MG/DL (0.55-1.30); GLOMERULAR FILTRATION RATE > 60.0 (>32); GLUCOSE, FASTING 135 MG/DL (74-106); POTASSIUM SERUM 4.1 MMOL/L (3.5-5.1); SODIUM LEVEL 139 MMOL/L (136-145)
[2022-09-19] MEDS: ALBUTEROL 90 MCG/ACT 8GM HFA INHALER INH SCH ×2 (07:17→13:15)
[2022-09-19] MEDS: BUDESONIDE 0.5 MG/2 ML INHALATION SUSPENSION INH SCH (08:00)
[2022-09-19 09:00] VITALS: BP 108/72
[2022-09-19] MEDS: INSULIN LISPRO (NovoLOG) PER UNIT SC SCH ×2 (09:22→11:56)
[2022-09-19] MEDS: NYSTATIN 100,000 UNITS/GM TOPICAL PWD 15GM TOP SCH (09:30)
[2022-09-19] MEDS: HEPARIN SOD (PORCINE) 5000UNITS/ML 1ML VIAL/SYRINGE SC SCH (09:30)
[2022-09-19] MEDS: REMEDY PHYTOPLEX Z-GUARD PASTE 113GM TUBE (FROM STOREROOM PRODUCT) TOP SCH (09:30)
[2022-09-19] MEDS: LACTOBACILLUS ACIDOPHILUS CAP (BACID) PO SCH ×2 (09:31→12:07)
[2022-09-19] MEDS: PANTOPRAZOLE 40MG TAB (PROTONIX) PO SCH (09:31)
[2022-09-19] MEDS: guaiFENesin 200 MG TAB PO SCH (09:31)
[2022-09-19] MEDS: MULTIVITAMINS/MINERALS THERAP 1 TAB PO SCH (09:31)
[2022-09-19] MEDS: DOCUSATE SODIUM 100MG CAPSULE PO SCH (09:31)
[2022-09-19] MEDS: predniSONE 10 MG TAB PO SCH (09:31)
[2022-09-19] MEDS: ASPIRIN 81MG ENTERIC TABLET PO SCH (09:31)
== END 2022-09-19 13:40 | DRG 177 ==
LOC: M ICU 17:49 → M MS5PR 09-18 20:55
PROVIDERS: ADMIT General Practice; ATTEND General Practice
DX: U07.1 COVID-19 (principal); J15.9 Unspecified bacterial pneumonia; G93.41 Metabolic encephalopathy; E87.4 Mixed disorder of acid-base balance; E87.3 Alkalosis; R00.1 Bradycardia, unspecified; K76.0 Fatty (change of) liver, not elsewhere classified; E03.9 Hypothyroidism, unspecified; E11.9 Type 2 diabetes mellitus without complications; I10 Essential (primary) hypertension; F31.9 Bipolar disorder, unspecified; K21.9 Gastro-esophageal reflux disease without esophagitis; G50.0 Trigeminal neuralgia; K43.9 Ventral hernia without obstruction or gangrene; M19.90 Unspecified osteoarthritis, unspecified site; K59.00 Constipation, unspecified; M10.9 Gout, unspecified; K57.90 Diverticulosis of intestine, part unspecified, without perforation or abscess without bleeding; K80.20 Calculus of gallbladder without cholecystitis without obstruction; Z85.3 Personal history of malignant neoplasm of breast; Z92.3 Personal history of irradiation; J84.10 Pulmonary fibrosis, unspecified; I71.43 Infrarenal abdominal aortic aneurysm, without rupture; Z79.899 Other long term (current) drug therapy; Z88.8 Allergy status to other drugs, medicaments and biological substances; Z98.41 Cataract extraction status, right eye; Z98.42 Cataract extraction status, left eye

== ENCOUNTER 2022-09-19 11:12 | Inpatient (IN) | payer MEDICARE, OTHER ==
[2022-09-19] MEDS ORDERED: BISACODYL 10MG SUPP PR PRN (15:45)
[2022-09-19] MEDS ORDERED: ACETAMINOPHEN TAB 650MG DOSE (2X325MG) PO PRN (15:45)
[2022-09-19 16:00] VITALS: BP 126/67
[2022-09-19] MEDS: REMEDY PHYTOPLEX Z-GUARD PASTE 113GM TUBE (FROM STOREROOM PRODUCT) TOP SCH ×2 (16:00→20:17)
[2022-09-19] MEDS: LACTOBACILLUS ACIDOPHILUS CAP (BACID) PO SCH ×2 (18:00→20:16)
[2022-09-19 20:00] VITALS: BP 121/58
[2022-09-19] MEDS: BUDESONIDE 0.5 MG/2 ML INHALATION SUSPENSION INH SCH (20:00)
[2022-09-19] MEDS: ALBUTEROL 90 MCG/ACT 8GM HFA INHALER INH SCH (20:10)
[2022-09-19] MEDS: CEFDINIR 300 MG CAP (OMNICEF) PO SCH (20:16)
[2022-09-19] MEDS: HEPARIN SOD (PORCINE) 5000UNITS/ML 1ML VIAL/SYRINGE SC SCH (20:16)
[2022-09-19] MEDS: SENNA 8.6 MG TAB (SENOKOT) PO SCH (20:16)
[2022-09-19] MEDS: DIVALPROEX 125 MG TAB PO SCH (20:16)
[2022-09-19] MEDS: guaiFENesin 200 MG TAB PO SCH (20:16)
[2022-09-19] MEDS: DOCUSATE SODIUM 100MG CAPSULE PO SCH (20:16)
[2022-09-19] MEDS: PANTOPRAZOLE 40MG TAB (PROTONIX) PO SCH (20:16)
[2022-09-19] MEDS: NYSTATIN 100,000 UNITS/GM TOPICAL PWD 15GM TOP SCH (20:17)
[2022-09-20] MEDS: LEVOTHYROXINE 75MCG TABLET (0.075MG) PO SCH (05:38)
[2022-09-20 06:00] VITALS: BP 120/62
[2022-09-20 06:51] LABS: BASO % 0.3 % (0.0-1.0); EOS # 0.1 10^3/uL (0.0-0.5); HEMATOCRIT 35.7 % (36.0-47.0); HEMOGLOBIN 11.8 g/dl (12.0-15.5); LYMPH # 3.1 10^3/uL (1.5-5.0); LYMPH % 34.7 % (24.0-44.0); MEAN CORPUSCULAR HEMOGLOBIN 30.5 pg (27.0-33.0); MEAN CORPUSCULAR HGB CONC 33.1 g/dl (32.0-36.5); MEAN CORPUSCULAR VOLUME 92.2 fl (80.0-96.0); MONO # 0.8 10^3/uL (0.0-0.8); MONO % 8.7 % (2.0-8.0); NEUTROPHILS # 4.6 10^3/uL (1.5-8.5); PLATELET COUNT, AUTOMATED 218 10^3/uL (150-450); RED BLOOD COUNT 3.87 10^6/uL (4.00-5.40); WHITE BLOOD COUNT 8.9 10^3/uL (4.0-10.0)
[2022-09-20 07:17] LABS: ALBUMIN 2.3 G/DL (3.2-5.2); ALKALINE PHOSPHATASE 35 U/L (46-116); ALT/SGPT 13 U/L (7.0-40); AST/SGOT 13 U/L (<34); BILIRUBIN,TOTAL 0.3 MG/DL (0.3-1.2); BLOOD UREA NITROGEN 22 MG/DL (9-23); CALCIUM LEVEL 8.1 MG/DL (8.3-10.6); CARBON DIOXIDE LEVEL 28 MMOL/L (20-31); CHLORIDE LEVEL 106 MMOL/L (98-107); CREATININE FOR GFR 0.61 MG/DL (0.55-1.30); GLOMERULAR FILTRATION RATE > 60.0 (>32); GLUCOSE, FASTING 111 MG/DL (74-106); POTASSIUM SERUM 4.2 MMOL/L (3.5-5.1); SODIUM LEVEL 139 MMOL/L (136-145); TOTAL PROTEIN 4.9 G/DL (5.7-8.2)
[2022-09-20] MEDS: ALBUTEROL 90 MCG/ACT 8GM HFA INHALER INH SCH ×3 (07:20→19:59)
[2022-09-20] MEDS: BUDESONIDE 0.5 MG/2 ML INHALATION SUSPENSION INH SCH ×2 (07:21→19:59)
[2022-09-20] MEDS: CEFDINIR 300 MG CAP (OMNICEF) PO SCH ×2 (08:20→19:52)
[2022-09-20] MEDS: ASPIRIN 81MG ENTERIC TABLET PO SCH (08:20)
[2022-09-20] MEDS: predniSONE 20 MG TAB PO SCH (08:20)
[2022-09-20] MEDS: LACTOBACILLUS ACIDOPHILUS CAP (BACID) PO SCH ×4 (08:20→19:52)
[2022-09-20] MEDS: DOCUSATE SODIUM 100MG CAPSULE PO SCH ×2 (08:20→19:52)
[2022-09-20] MEDS: MULTIVITAMINS/MINERALS THERAP 1 TAB PO SCH (08:20)
[2022-09-20] MEDS: guaiFENesin 200 MG TAB PO SCH ×3 (08:20→19:53)
[2022-09-20] MEDS: PANTOPRAZOLE 40MG TAB (PROTONIX) PO SCH ×2 (08:20→19:52)
[2022-09-20] MEDS: HEPARIN SOD (PORCINE) 5000UNITS/ML 1ML VIAL/SYRINGE SC SCH ×2 (08:21→19:52)
[2022-09-20] MEDS: NYSTATIN 100,000 UNITS/GM TOPICAL PWD 15GM TOP SCH ×2 (09:00→19:53)
[2022-09-20] MEDS: REMEDY PHYTOPLEX Z-GUARD PASTE 113GM TUBE (FROM STOREROOM PRODUCT) TOP SCH ×3 (09:00→19:53)
[2022-09-20] MEDS ORDERED: HOME MED LIST COMPLETE! XX SCH (12:55)
[2022-09-20 14:00] VITALS: BP 110/57
[2022-09-20] MEDS: SENNA 8.6 MG TAB (SENOKOT) PO SCH (19:52)
[2022-09-20] MEDS: DIVALPROEX 125 MG TAB PO SCH (19:52)
[2022-09-20 20:00] VITALS: BP 132/71
[2022-09-21] MEDS: LEVOTHYROXINE 75MCG TABLET (0.075MG) PO SCH (05:32)
[2022-09-21 06:00] VITALS: BP 101/55
[2022-09-21 07:00] LABS: BASO % 0.3 % (0.0-1.0); EOS # 0.1 10^3/uL (0.0-0.5); EOS % 0.9 % (0.0-3.0); HEMATOCRIT 34.8 % (36.0-47.0); HEMOGLOBIN 11.7 g/dl (12.0-15.5); LYMPH # 3.2 10^3/uL (1.5-5.0); LYMPH % 31.2 % (24.0-44.0); MEAN CORPUSCULAR HEMOGLOBIN 30.6 pg (27.0-33.0); MEAN CORPUSCULAR HGB CONC 33.6 g/dl (32.0-36.5); MEAN CORPUSCULAR VOLUME 91.1 fl (80.0-96.0); MONO # 0.8 10^3/uL (0.0-0.8); MONO % 7.7 % (2.0-8.0); NEUTROPHILS % 57.7 % (36.0-66.0); PLATELET COUNT, AUTOMATED 220 10^3/uL (150-450); RED BLOOD COUNT 3.82 10^6/uL (4.00-5.40); WHITE BLOOD COUNT 10.3 10^3/uL (4.0-10.0)
[2022-09-21] MEDS: ALBUTEROL 90 MCG/ACT 8GM HFA INHALER INH SCH ×3 (07:21→20:23)
[2022-09-21] MEDS: BUDESONIDE 0.5 MG/2 ML INHALATION SUSPENSION INH SCH ×2 (07:22→20:23)
[2022-09-21 07:28] LABS: BLOOD UREA NITROGEN 25 MG/DL (9-23); CALCIUM LEVEL 8.1 MG/DL (8.3-10.6); CARBON DIOXIDE LEVEL 28 MMOL/L (20-31); CHLORIDE LEVEL 106 MMOL/L (98-107); CREATININE FOR GFR 0.59 MG/DL (0.55-1.30); GLOMERULAR FILTRATION RATE > 60.0 (>32); GLUCOSE, FASTING 106 MG/DL (74-106); POTASSIUM SERUM 4.2 MMOL/L (3.5-5.1); SODIUM LEVEL 140 MMOL/L (136-145)
[2022-09-21] MEDS: CEFDINIR 300 MG CAP (OMNICEF) PO SCH ×2 (08:17→20:32)
[2022-09-21] MEDS: guaiFENesin 200 MG TAB PO SCH ×3 (08:17→20:32)
[2022-09-21] MEDS: DOCUSATE SODIUM 100MG CAPSULE PO SCH ×2 (08:17→20:33)
[2022-09-21] MEDS: MULTIVITAMINS/MINERALS THERAP 1 TAB PO SCH (08:18)
[2022-09-21] MEDS: LACTOBACILLUS ACIDOPHILUS CAP (BACID) PO SCH ×4 (08:18→20:33)
[2022-09-21] MEDS: ASPIRIN 81MG ENTERIC TABLET PO SCH (08:18)
[2022-09-21] MEDS: predniSONE 20 MG TAB PO SCH (08:18)
[2022-09-21] MEDS: NYSTATIN 100,000 UNITS/GM TOPICAL PWD 15GM TOP SCH ×2 (08:19→20:34)
[2022-09-21] MEDS: PANTOPRAZOLE 40MG TAB (PROTONIX) PO SCH ×2 (08:19→20:33)
[2022-09-21] MEDS: HEPARIN SOD (PORCINE) 5000UNITS/ML 1ML VIAL/SYRINGE SC SCH ×2 (08:19→20:32)
[2022-09-21] MEDS: REMEDY PHYTOPLEX Z-GUARD PASTE 113GM TUBE (FROM STOREROOM PRODUCT) TOP SCH ×3 (08:20→20:34)
[2022-09-21 14:00] VITALS: BP 95/52
[2022-09-21 18:00] VITALS: BP 120/70
[2022-09-21] MEDS: SENNA 8.6 MG TAB (SENOKOT) PO SCH (20:33)
[2022-09-21] MEDS: DIVALPROEX 125 MG TAB PO SCH (20:33)
[2022-09-22] MEDS: LEVOTHYROXINE 75MCG TABLET (0.075MG) PO SCH (05:49)
[2022-09-22 06:00] VITALS: BP 130/66
[2022-09-22 06:36] LABS: BASO % 0.2 % (0.0-1.0); EOS # 0.1 10^3/uL (0.0-0.5); EOS % 0.5 % (0.0-3.0); HEMATOCRIT 34.6 % (36.0-47.0); HEMOGLOBIN 11.5 g/dl (12.0-15.5); LYMPH % 26.9 % (24.0-44.0); MEAN CORPUSCULAR HEMOGLOBIN 31.1 pg (27.0-33.0); MEAN CORPUSCULAR HGB CONC 33.2 g/dl (32.0-36.5); MEAN CORPUSCULAR VOLUME 93.5 fl (80.0-96.0); MONO # 0.7 10^3/uL (0.0-0.8); MONO % 6.5 % (2.0-8.0); NEUTROPHILS # 7.1 10^3/uL (1.5-8.5); NEUTROPHILS % 64.6 % (36.0-66.0); PLATELET COUNT, AUTOMATED 209 10^3/uL (150-450)
[2022-09-22] MEDS: BUDESONIDE 0.5 MG/2 ML INHALATION SUSPENSION INH SCH ×2 (07:19→19:32)
[2022-09-22] MEDS: ALBUTEROL 90 MCG/ACT 8GM HFA INHALER INH SCH ×3 (07:19→19:32)
[2022-09-22] MEDS: DOCUSATE SODIUM 100MG CAPSULE PO SCH ×2 (08:18→21:40)
[2022-09-22] MEDS: LACTOBACILLUS ACIDOPHILUS CAP (BACID) PO SCH ×4 (08:18→21:40)
[2022-09-22] MEDS: guaiFENesin 200 MG TAB PO SCH ×3 (08:18→21:39)
[2022-09-22] MEDS: MULTIVITAMINS/MINERALS THERAP 1 TAB PO SCH (08:18)
[2022-09-22] MEDS: CEFDINIR 300 MG CAP (OMNICEF) PO SCH ×2 (08:19→21:40)
[2022-09-22] MEDS: ASPIRIN 81MG ENTERIC TABLET PO SCH (08:19)
[2022-09-22] MEDS: predniSONE 20 MG TAB PO SCH (08:19)
[2022-09-22] MEDS: PANTOPRAZOLE 40MG TAB (PROTONIX) PO SCH ×2 (08:19→21:46)
[2022-09-22] MEDS: HEPARIN SOD (PORCINE) 5000UNITS/ML 1ML VIAL/SYRINGE SC SCH ×2 (08:19→21:40)
[2022-09-22] MEDS: REMEDY PHYTOPLEX Z-GUARD PASTE 113GM TUBE (FROM STOREROOM PRODUCT) TOP SCH ×3 (08:20→21:41)
[2022-09-22] MEDS: NYSTATIN 100,000 UNITS/GM TOPICAL PWD 15GM TOP SCH ×2 (08:20→21:41)
[2022-09-22 14:00] VITALS: BP 114/59
[2022-09-22 20:00] VITALS: BP 130/64
[2022-09-22] MEDS: DIVALPROEX 125 MG TAB PO SCH (21:40)
[2022-09-22] MEDS: SENNA 8.6 MG TAB (SENOKOT) PO SCH (21:41)
[2022-09-22] MEDS: TAMSULOSIN 0.4 MG CAP PO SCH (21:47)
[2022-09-23] MEDS: LEVOTHYROXINE 75MCG TABLET (0.075MG) PO SCH (06:05)
[2022-09-23 06:22] LABS: BASO % 0.3 % (0.0-1.0); EOS # 0.1 10^3/uL (0.0-0.5); EOS % 0.7 % (0.0-3.0); HEMATOCRIT 34.4 % (36.0-47.0); HEMOGLOBIN 11.6 g/dl (12.0-15.5); LYMPH % 29.6 % (24.0-44.0); MEAN CORPUSCULAR HEMOGLOBIN 31.7 pg (27.0-33.0); MEAN CORPUSCULAR HGB CONC 33.7 g/dl (32.0-36.5); MONO # 0.8 10^3/uL (0.0-0.8); MONO % 7.5 % (2.0-8.0); NEUTROPHILS # 6.1 10^3/uL (1.5-8.5); NEUTROPHILS % 60.6 % (36.0-66.0); PLATELET COUNT, AUTOMATED 216 10^3/uL (150-450); RED BLOOD COUNT 3.66 10^6/uL (4.00-5.40); WHITE BLOOD COUNT 10.1 10^3/uL (4.0-10.0)
[2022-09-23 06:52] LABS: BLOOD UREA NITROGEN 30 MG/DL (9-23); CALCIUM LEVEL 8.8 MG/DL (8.3-10.6); CARBON DIOXIDE LEVEL 26 MMOL/L (20-31); CHLORIDE LEVEL 104 MMOL/L (98-107); CREATININE FOR GFR 0.58 MG/DL (0.55-1.30); GLOMERULAR FILTRATION RATE > 60.0 (>32); GLUCOSE, FASTING 100 MG/DL (74-106); POTASSIUM SERUM 4.5 MMOL/L (3.5-5.1); SODIUM LEVEL 138 MMOL/L (136-145)
[2022-09-23] MEDS: BUDESONIDE 0.5 MG/2 ML INHALATION SUSPENSION INH SCH ×2 (08:00→19:49)
[2022-09-23] MEDS: ALBUTEROL 90 MCG/ACT 8GM HFA INHALER INH SCH ×3 (08:22→19:49)
[2022-09-23] MEDS: REMEDY PHYTOPLEX Z-GUARD PASTE 113GM TUBE (FROM STOREROOM PRODUCT) TOP SCH ×3 (09:00→20:41)
[2022-09-23] MEDS: predniSONE 20 MG TAB PO SCH (09:17)
[2022-09-23] MEDS: CEFDINIR 300 MG CAP (OMNICEF) PO SCH ×2 (09:17→20:39)
[2022-09-23] MEDS: guaiFENesin 200 MG TAB PO SCH ×3 (09:17→20:38)
[2022-09-23] MEDS: LACTOBACILLUS ACIDOPHILUS CAP (BACID) PO SCH ×4 (09:17→20:37)
[2022-09-23] MEDS: MULTIVITAMINS/MINERALS THERAP 1 TAB PO SCH (09:17)
[2022-09-23] MEDS: PANTOPRAZOLE 40MG TAB (PROTONIX) PO SCH ×2 (09:18→20:39)
[2022-09-23] MEDS: DOCUSATE SODIUM 100MG CAPSULE PO SCH ×2 (09:18→20:39)
[2022-09-23] MEDS: ASPIRIN 81MG ENTERIC TABLET PO SCH (09:18)
[2022-09-23] MEDS: HEPARIN SOD (PORCINE) 5000UNITS/ML 1ML VIAL/SYRINGE SC SCH ×2 (09:19→20:39)
[2022-09-23] MEDS: NYSTATIN 100,000 UNITS/GM TOPICAL PWD 15GM TOP SCH ×2 (09:19→20:40)
[2022-09-23 14:00] VITALS: BP 140/69
[2022-09-23 20:00] VITALS: BP 107/59
[2022-09-23] MEDS: TAMSULOSIN 0.4 MG CAP PO SCH (20:37)
[2022-09-23] MEDS: DIVALPROEX 125 MG TAB PO SCH (20:38)
[2022-09-23] MEDS: SENNA 8.6 MG TAB (SENOKOT) PO SCH (20:39)
[2022-09-24 00:26] VITALS: BP 135/62
[2022-09-24 06:00] VITALS: BP 116/59
[2022-09-24] MEDS: LEVOTHYROXINE 75MCG TABLET (0.075MG) PO SCH (06:18)
[2022-09-24] MEDS: BUDESONIDE 0.5 MG/2 ML INHALATION SUSPENSION INH SCH ×2 (08:00→20:19)
[2022-09-24] MEDS: ALBUTEROL 90 MCG/ACT 8GM HFA INHALER INH SCH ×3 (08:00→20:19)
[2022-09-24] MEDS: LACTOBACILLUS ACIDOPHILUS CAP (BACID) PO SCH ×4 (08:48→21:04)
[2022-09-24] MEDS: DOCUSATE SODIUM 100MG CAPSULE PO SCH ×2 (08:48→21:04)
[2022-09-24] MEDS: MULTIVITAMINS/MINERALS THERAP 1 TAB PO SCH (08:49)
[2022-09-24] MEDS: ASPIRIN 81MG ENTERIC TABLET PO SCH (08:49)
[2022-09-24] MEDS: PANTOPRAZOLE 40MG TAB (PROTONIX) PO SCH ×2 (08:49→21:04)
[2022-09-24] MEDS: predniSONE 20 MG TAB PO SCH (08:49)
[2022-09-24] MEDS: guaiFENesin 200 MG TAB PO SCH ×3 (08:49→21:05)
[2022-09-24] MEDS: HEPARIN SOD (PORCINE) 5000UNITS/ML 1ML VIAL/SYRINGE SC SCH ×2 (08:50→21:05)
[2022-09-24] MEDS: NYSTATIN 100,000 UNITS/GM TOPICAL PWD 15GM TOP SCH ×2 (08:50→21:05)
[2022-09-24] MEDS: REMEDY PHYTOPLEX Z-GUARD PASTE 113GM TUBE (FROM STOREROOM PRODUCT) TOP SCH ×3 (08:51→21:06)
[2022-09-24 14:00] VITALS: BP 97/55
[2022-09-24 20:00] VITALS: BP 117/60
[2022-09-24] MEDS: DIVALPROEX 125 MG TAB PO SCH (21:04)
[2022-09-24] MEDS: SENNA 8.6 MG TAB (SENOKOT) PO SCH (21:04)
[2022-09-24] MEDS: TAMSULOSIN 0.4 MG CAP PO SCH (21:04)
[2022-09-25] MEDS: LEVOTHYROXINE 75MCG TABLET (0.075MG) PO SCH (05:47)
[2022-09-25 06:00] VITALS: BP 120/56
[2022-09-25] MEDS: BUDESONIDE 0.5 MG/2 ML INHALATION SUSPENSION INH SCH ×2 (07:37→19:21)
[2022-09-25] MEDS: ALBUTEROL 90 MCG/ACT 8GM HFA INHALER INH SCH ×3 (07:38→19:20)
[2022-09-25] MEDS: ASPIRIN 81MG ENTERIC TABLET PO SCH (09:45)
[2022-09-25] MEDS: PANTOPRAZOLE 40MG TAB (PROTONIX) PO SCH ×2 (09:45→21:27)
[2022-09-25] MEDS: DOCUSATE SODIUM 100MG CAPSULE PO SCH ×2 (09:45→21:00)
[2022-09-25] MEDS: LACTOBACILLUS ACIDOPHILUS CAP (BACID) PO SCH ×4 (09:45→21:26)
[2022-09-25] MEDS: guaiFENesin 200 MG TAB PO SCH ×3 (09:46→21:27)
[2022-09-25] MEDS: NYSTATIN 100,000 UNITS/GM TOPICAL PWD 15GM TOP SCH ×2 (09:46→21:27)
[2022-09-25] MEDS: MULTIVITAMINS/MINERALS THERAP 1 TAB PO SCH (09:46)
[2022-09-25] MEDS: HEPARIN SOD (PORCINE) 5000UNITS/ML 1ML VIAL/SYRINGE SC SCH ×2 (09:46→21:27)
[2022-09-25] MEDS: REMEDY PHYTOPLEX Z-GUARD PASTE 113GM TUBE (FROM STOREROOM PRODUCT) TOP SCH ×3 (09:47→21:27)
[2022-09-25 14:00] VITALS: BP 100/54
[2022-09-25 20:00] VITALS: BP 105/56
[2022-09-25] MEDS: SENNA 8.6 MG TAB (SENOKOT) PO SCH (21:00)
[2022-09-25] MEDS: DIVALPROEX 125 MG TAB PO SCH (21:26)
[2022-09-25] MEDS: TAMSULOSIN 0.4 MG CAP PO SCH (21:26)
[2022-09-26 06:00] VITALS: BP 105/61
[2022-09-26] MEDS: LEVOTHYROXINE 75MCG TABLET (0.075MG) PO SCH (06:09)
[2022-09-26 07:13] LABS: BASO % 0.6 % (0.0-1.0); EOS # 0.1 10^3/uL (0.0-0.5); EOS % 1.4 % (0.0-3.0); HEMATOCRIT 37.6 % (36.0-47.0); HEMOGLOBIN 12.4 g/dl (12.0-15.5); LYMPH # 2.9 10^3/uL (1.5-5.0); LYMPH % 39.9 % (24.0-44.0); MEAN CORPUSCULAR HEMOGLOBIN 31.5 pg (27.0-33.0); MEAN CORPUSCULAR VOLUME 95.4 fl (80.0-96.0); MONO # 0.7 10^3/uL (0.0-0.8); MONO % 9.8 % (2.0-8.0); NEUTROPHILS # 3.4 10^3/uL (1.5-8.5); NEUTROPHILS % 47.6 % (36.0-66.0); PLATELET COUNT, AUTOMATED 204 10^3/uL (150-450); RED BLOOD COUNT 3.94 10^6/uL (4.00-5.40); WHITE BLOOD COUNT 7.1 10^3/uL (4.0-10.0)
[2022-09-26 07:41] LABS: BLOOD UREA NITROGEN 26 MG/DL (9-23); CALCIUM LEVEL 8.6 MG/DL (8.3-10.6); CARBON DIOXIDE LEVEL 26 MMOL/L (20-31); CHLORIDE LEVEL 104 MMOL/L (98-107); CREATININE FOR GFR 0.73 MG/DL (0.55-1.30); GLOMERULAR FILTRATION RATE > 60.0 (>32); GLUCOSE, FASTING 91 MG/DL (74-106); POTASSIUM SERUM 4.5 MMOL/L (3.5-5.1); SODIUM LEVEL 140 MMOL/L (136-145)
[2022-09-26] MEDS: BUDESONIDE 0.5 MG/2 ML INHALATION SUSPENSION INH SCH (07:45)
[2022-09-26] MEDS: ALBUTEROL 90 MCG/ACT 8GM HFA INHALER INH SCH ×2 (07:45→13:48)
[2022-09-26] MEDS: MULTIVITAMINS/MINERALS THERAP 1 TAB PO SCH (08:20)
[2022-09-26] MEDS: PANTOPRAZOLE 40MG TAB (PROTONIX) PO SCH (08:20)
[2022-09-26] MEDS: ASPIRIN 81MG ENTERIC TABLET PO SCH (08:20)
[2022-09-26] MEDS: LACTOBACILLUS ACIDOPHILUS CAP (BACID) PO SCH ×2 (08:20→13:00)
[2022-09-26] MEDS: guaiFENesin 200 MG TAB PO SCH (08:20)
[2022-09-26] MEDS: HEPARIN SOD (PORCINE) 5000UNITS/ML 1ML VIAL/SYRINGE SC SCH (08:21)
[2022-09-26] MEDS: REMEDY PHYTOPLEX Z-GUARD PASTE 113GM TUBE (FROM STOREROOM PRODUCT) TOP SCH (08:21)
[2022-09-26] MEDS: NYSTATIN 100,000 UNITS/GM TOPICAL PWD 15GM TOP SCH (08:21)
[2022-09-26 08:22] VITALS: BP 108/64
[2022-09-26] MEDS: DOCUSATE SODIUM 100MG CAPSULE PO SCH (08:22)
[2022-09-26] MEDS ORDERED: LEVO75TA4 PO (08:49)
[2022-09-26] MEDS ORDERED: AMLO25TA PO (08:50)
[2022-09-26] MEDS ORDERED: ASPI81TAEC PO (08:50)
[2022-09-26] MEDS ORDERED: FLOM0.4C39 PO (08:50)
[2022-09-26] MEDS ORDERED: DIVA1TAB48 PO (08:50)
[2022-09-26 13:58] VITALS: BP 111/73
== END 2022-09-26 15:50 | disposition home or self-care (01) | DRG 72 ==
LOC: M PM&R 13:45
PROVIDERS: ADMIT Physical Medicine & Rehabilitation; ATTEND Physical Medicine & Rehabilitation
DX: G93.41 Metabolic encephalopathy (principal); I10 Essential (primary) hypertension; R09.02 Hypoxemia; J40 Bronchitis, not specified as acute or chronic; R26.89 Other abnormalities of gait and mobility; N32.9 Bladder disorder, unspecified; F31.9 Bipolar disorder, unspecified; Z87.820 Personal history of traumatic brain injury; G50.0 Trigeminal neuralgia; K21.9 Gastro-esophageal reflux disease without esophagitis; H91.93 Unspecified hearing loss, bilateral; M10.9 Gout, unspecified; Z85.51 Personal history of malignant neoplasm of bladder; Z85.3 Personal history of malignant neoplasm of breast; Z92.3 Personal history of irradiation; E11.9 Type 2 diabetes mellitus without complications; E03.9 Hypothyroidism, unspecified; Z74.09 Other reduced mobility; Z74.1 Need for assistance with personal care; R13.10 Dysphagia, unspecified; R53.1 Weakness; Z79.82 Long term (current) use of aspirin; Z79.890 Hormone replacement therapy; Z79.899 Other long term (current) drug therapy; Z88.8 Allergy status to other drugs, medicaments and biological substances; K76.0 Fatty (change of) liver, not elsewhere classified; K57.30 Diverticulosis of large intestine without perforation or abscess without bleeding; I71.43 Infrarenal abdominal aortic aneurysm, without rupture; J84.10 Pulmonary fibrosis, unspecified

== ENCOUNTER → 2022-10-17 | Outpatient (CLI) | payer MEDICARE, OTHER ==
[~2022-10-17] MED LIST changes: +AMLO25TA PO; +FLOM0.4C39 PO; +LATU80TA2; +SENN-121
[2022-10-17 16:39] LABS: BASO # 0.1 10^3/uL (0.0-0.2); BASO % 1.2 % (0.0-1.0); EOS # 0.1 10^3/uL (0.0-0.5); EOS % 0.7 % (0.0-3.0); HEMATOCRIT 41.1 % (36.0-47.0); HEMOGLOBIN 13.5 g/dl (12.0-15.5); LYMPH # 2.9 10^3/uL (1.5-5.0); LYMPH % 35.3 % (24.0-44.0); MEAN CORPUSCULAR HEMOGLOBIN 31.2 pg (27.0-33.0); MEAN CORPUSCULAR HGB CONC 32.8 g/dl (32.0-36.5); MEAN CORPUSCULAR VOLUME 94.9 fl (80.0-96.0); MONO # 0.7 10^3/uL (0.0-0.8); MONO % 8.9 % (2.0-8.0); NEUTROPHILS # 4.4 10^3/uL (1.5-8.5); NEUTROPHILS % 53.7 % (36.0-66.0); PLATELET COUNT, AUTOMATED 331 10^3/uL (150-450); RED BLOOD COUNT 4.33 10^6/uL (4.00-5.40); WHITE BLOOD COUNT 8.1 10^3/uL (4.0-10.0)
[2022-10-17 17:02] LABS: BLOOD UREA NITROGEN 22 MG/DL (9-23); CALCIUM LEVEL 10.1 MG/DL (8.3-10.6); CARBON DIOXIDE LEVEL 27 MMOL/L (20-31); CHLORIDE LEVEL 108 MMOL/L (98-107); CREATININE FOR GFR 0.71 MG/DL (0.55-1.30); GLOMERULAR FILTRATION RATE > 60.0 (>32); GLUCOSE, FASTING 85 MG/DL (74-106); POTASSIUM SERUM 4.6 MMOL/L (3.5-5.1); SODIUM LEVEL 141 MMOL/L (136-145)
[2022-10-17 17:06] LABS: THYROID STIMULATING HORMONE 0.224 uIU/ML (0.55-4.78)
[2022-10-17 17:07] LABS: FREE T4 1.41 NG/DL (0.89-1.76)
== END ==
LOC: M WUC 13:03
PROVIDERS: ATTEND Physician Assistant
DX: E03.9 Hypothyroidism, unspecified (principal)

== ENCOUNTER 2022-11-15 16:57 | Emergency (ER) | payer MEDICARE, OTHER ==
[~2022-11-15] VITALS: Ht 152.4 cm; Wt 48.5 kg
[~2022-11-15 16:57] MED LIST changes: -LATU80TA2; -SENN-121
[2022-11-15 21:17] LABS: BASO # 0.1 10^3/uL (0.0-0.2); BASO % 0.8 % (0.0-1.0); EOS # 0.1 10^3/uL (0.0-0.5); LYMPH # 2.9 10^3/uL (1.5-5.0); LYMPH % 44.1 % (24.0-44.0); MEAN CORPUSCULAR HEMOGLOBIN 31.3 pg (27.0-33.0); MEAN CORPUSCULAR HGB CONC 34.1 g/dl (32.0-36.5); MEAN CORPUSCULAR VOLUME 91.7 fl (80.0-96.0); MONO # 0.6 10^3/uL (0.0-0.8); MONO % 9.5 % (2.0-8.0); NEUTROPHILS # 2.8 10^3/uL (1.5-8.5); NEUTROPHILS % 43.4 % (36.0-66.0); PLATELET COUNT, AUTOMATED 243 10^3/uL (150-450); RED BLOOD COUNT 4.47 10^6/uL (4.00-5.40); WHITE BLOOD COUNT 6.5 10^3/uL (4.0-10.0)
[2022-11-15 21:48] LABS: LIPASE 45 U/L (12-53)
[2022-11-15 22:04] LABS: ALBUMIN 3.4 G/DL (3.2-5.2); ALKALINE PHOSPHATASE 53 U/L (46-116); ALT/SGPT 11 U/L (7.0-40); AST/SGOT 13 U/L (<34); BILIRUBIN,DIRECT 0.2 MG/DL (<0.4); BILIRUBIN,TOTAL 0.5 MG/DL (0.3-1.2); BLOOD UREA NITROGEN 17 MG/DL (9-23); CALCIUM LEVEL 9.2 MG/DL (8.3-10.6); CARBON DIOXIDE LEVEL 22 MMOL/L (20-31); CHLORIDE LEVEL 111 MMOL/L (98-107); CREATININE FOR GFR 0.76 MG/DL (0.55-1.30); GLOMERULAR FILTRATION RATE > 60.0 (>32); GLUCOSE, FASTING 82 MG/DL (74-106); POTASSIUM SERUM 3.7 MMOL/L (3.5-5.1); SODIUM LEVEL 143 MMOL/L (136-145); TOTAL PROTEIN 6.3 G/DL (5.7-8.2)
[2022-11-15 22:37] LABS: RSV AMPLIFICATION NEGATIVE (NEGATIVE)
[2022-11-15 22:38] VITALS: BP 129/65
== END 2022-11-15 22:59 | disposition home or self-care (01) ==
LOC: M ED 16:57
DX: R14.0 Abdominal distension (gaseous) (principal); F31.9 Bipolar disorder, unspecified; E11.9 Type 2 diabetes mellitus without complications; E03.9 Hypothyroidism, unspecified; I10 Essential (primary) hypertension; K21.9 Gastro-esophageal reflux disease without esophagitis; Z88.5 Allergy status to narcotic agent; Z79.82 Long term (current) use of aspirin; Z79.899 Other long term (current) drug therapy

== ENCOUNTER 2022-12-12 10:55 | Emergency (ER) | payer MEDICARE, OTHER ==
[~2022-12-12] VITALS: Ht 152.4 cm; Wt 50.0 kg
[2022-12-12] MEDS ORDERED: LATU80TA2 (11:07)
[2022-12-12] MEDS ORDERED: SENN-121 (11:07)
[2022-12-12] MEDS ORDERED: NS 500 ML IV ONE ×2 (11:25→16:15)
[2022-12-12 11:46] LABS: BASO # 0.1 10^3/uL (0.0-0.2); BASO % 0.9 % (0.0-1.0); EOS # 0.1 10^3/uL (0.0-0.5); EOS % 1.1 % (0.0-3.0); HEMOGLOBIN 14.5 g/dl (12.0-15.5); LYMPH # 2.4 10^3/uL (1.5-5.0); LYMPH % 31.5 % (24.0-44.0); MEAN CORPUSCULAR HEMOGLOBIN 31.6 pg (27.0-33.0); MEAN CORPUSCULAR HGB CONC 34.5 g/dl (32.0-36.5); MEAN CORPUSCULAR VOLUME 91.5 fl (80.0-96.0); MONO # 0.7 10^3/uL (0.0-0.8); MONO % 9.3 % (2.0-8.0); NEUTROPHILS # 4.3 10^3/uL (1.5-8.5); NEUTROPHILS % 56.8 % (36.0-66.0); PLATELET COUNT, AUTOMATED 243 10^3/uL (150-450); RED BLOOD COUNT 4.59 10^6/uL (4.00-5.40); WHITE BLOOD COUNT 7.6 10^3/uL (4.0-10.0)
[2022-12-12 11:57] LABS: INR 0.91; PROTHROMBIN TIME 12.4 SECONDS (12.5-14.5)
[2022-12-12 11:58] LABS: PARTIAL THROMBOPLASTIN TIME 25.8 SECONDS (24.8-34.2)
[2022-12-12] MEDS ORDERED: ISOVUE-370 76% 100ML VIAL As Ordered ONE (12:15)
[2022-12-12 12:16] LABS: LIPASE 165 U/L (12-53)
[2022-12-12 12:17] LABS: AMYLASE 293 U/L (30-118)
[2022-12-12 12:18] LABS: CPK CREATINE PHOSPHOKINASE 45 U/L (34-145)
[2022-12-12 12:28] LABS: RSV AMPLIFICATION NEGATIVE (NEGATIVE)
[2022-12-12 12:37] LABS: ALBUMIN 3.8 G/DL (3.2-5.2); ALKALINE PHOSPHATASE 63 U/L (46-116); ALT/SGPT 13 U/L (7.0-40); AST/SGOT 13 U/L (<34); BILIRUBIN,DIRECT 0.2 MG/DL (<0.4); BILIRUBIN,TOTAL 0.8 MG/DL (0.3-1.2); CK-MB VALUE MASS < 1.0 NG/ML (<3.6); MB/CK RELATIVE INDEX 2.22 (< OR =4)
[2022-12-12 14:08] LABS: CPK CREATINE PHOSPHOKINASE 44 U/L (34-145)
[2022-12-12 14:16] LABS: CK-MB VALUE MASS < 1.0 NG/ML (<3.6); MB/CK RELATIVE INDEX 2.27 (< OR =4)
[2022-12-12 18:15] VITALS: BP 154/77
[2022-12-12 18:19] LABS: TOTAL PROTEIN 7.2 G/DL (5.7-8.2)
== END 2022-12-12 20:09 | disposition home or self-care (01) ==
LOC: M ED 10:55
DX: K80.66 Calculus of gallbladder and bile duct with acute and chronic cholecystitis without obstruction (principal); R00.1 Bradycardia, unspecified; Z87.891 Personal history of nicotine dependence; Z88.8 Allergy status to other drugs, medicaments and biological substances; Z79.82 Long term (current) use of aspirin; Z79.899 Other long term (current) drug therapy
CPT/HCPCS: 36415; 71045; 71275; 74177; 74181; 76705; 80047; 80076; 81000; 81001; 82150; 82550; 82553; 83605; 83690; 84484; 85025; 85610; 85730; 87040; 87086; 87631; 93005; 93041; 99285; Q9967

== ENCOUNTER → 2023-01-09 | Outpatient (CLI) | payer MEDICARE, OTHER ==
[~2023-01-09] MED LIST changes: +LATU80TA2; +SENN-121
== END ==
LOC: M WHC 13:41
PROVIDERS: ATTEND Nurse Practitioner Women's Health
DX: N63.20 Unspecified lump in the left breast, unspecified quadrant (principal); Z85.3 Personal history of malignant neoplasm of breast
CPT/HCPCS: 77065; G0279

== ENCOUNTER 2023-01-14 19:54 | Emergency (ER) | payer MEDICARE, OTHER ==
[~2023-01-14] VITALS: Ht 152.4 cm; Wt 51.3 kg
[2023-01-14] MEDS ORDERED: ISOVUE-370 76% 100ML VIAL As Ordered ONE (21:33)
[2023-01-14 21:36] LABS: BASO # 0.1 10^3/uL (0.0-0.2); BASO % 0.9 % (0.0-1.0); EOS # 0.1 10^3/uL (0.0-0.5); EOS % 1.6 % (0.0-3.0); HEMOGLOBIN 14.3 g/dl (12.0-15.5); LYMPH # 3.2 10^3/uL (1.5-5.0); LYMPH % 41.2 % (24.0-44.0); MEAN CORPUSCULAR HEMOGLOBIN 30.6 pg (27.0-33.0); MEAN CORPUSCULAR VOLUME 89.9 fl (80.0-96.0); MONO # 0.7 10^3/uL (0.0-0.8); NEUTROPHILS # 3.6 10^3/uL (1.5-8.5); PLATELET COUNT, AUTOMATED 242 10^3/uL (150-450); RED BLOOD COUNT 4.67 10^6/uL (4.00-5.40); WHITE BLOOD COUNT 7.7 10^3/uL (4.0-10.0)
[2023-01-14 21:52] LABS: CK-MB VALUE MASS < 1.0 NG/ML (<3.6)
[2023-01-14 21:53] LABS: INR 0.92; PROTHROMBIN TIME 12.6 SECONDS (12.5-14.5)
[2023-01-14 21:54] LABS: PARTIAL THROMBOPLASTIN TIME 26.9 SECONDS (24.8-34.2)
[2023-01-14 21:57] LABS: CPK CREATINE PHOSPHOKINASE 48 U/L (34-145); MB/CK RELATIVE INDEX 2.08 (< OR =4)
[2023-01-14] MEDS ORDERED: MECLIZINE 25 MG TABLET PO ONE (22:50)
[2023-01-15 01:34] LABS: CK-MB VALUE MASS < 1.0 NG/ML (<3.6); CPK CREATINE PHOSPHOKINASE 67 U/L (34-145); MB/CK RELATIVE INDEX 1.49 (< OR =4)
[2023-01-15 02:00] VITALS: BP 146/66
[2023-01-15] MEDS ORDERED: MECL1TAB31 PO (02:05)
== END 2023-01-15 02:29 | disposition home or self-care (01) ==
LOC: M ED 19:54
DX: H81.4 Vertigo of central origin (principal); R00.1 Bradycardia, unspecified; I44.0 Atrioventricular block, first degree; E11.9 Type 2 diabetes mellitus without complications; Z79.4 Long term (current) use of insulin; Z88.8 Allergy status to other drugs, medicaments and biological substances; Z79.82 Long term (current) use of aspirin; Z79.899 Other long term (current) drug therapy
CPT/HCPCS: 36415; 70450; 70496; 70498; 70551; 71045; 80047; 82550; 82553; 84484; 85025; 85610; 85730; 93005; 93041; 94760; 99285; Q9967

== ENCOUNTER 2023-02-17 07:05 | Day surgery (SDC) | payer MEDICARE, OTHER ==
[~2023-02-17] VITALS: Ht 152.4 cm; Wt 51.6 kg
[~2023-02-17 07:05] MED LIST changes: +MECL1TAB31 PO
[2023-02-17] MEDS ORDERED: BUPIVACAINE/EPIN 0.25% 30ML VIAL As Ordered ONE (07:16)
[2023-02-17] MEDS ORDERED: fentaNYL 250 MCG/5 ML INJECTION As Ordered ONE (08:08)
[2023-02-17] MEDS ORDERED: ONDANSETRON 4MG 2ML VIAL As Ordered ONE (08:09)
[2023-02-17] MEDS ORDERED: propofoL 200 MG/20 ML VIAL As Ordered ONE (08:09)
[2023-02-17] MEDS ORDERED: ROCURONIUM BROMIDE 50MG/5ML VIAL As Ordered ONE (08:09)
[2023-02-17] MEDS ORDERED: LIDOCAINE 2% 100MG/5ML SDV (FOR ANES.) As Ordered ONE (08:09)
[2023-02-17] MEDS ORDERED: ACETAMINOPHEN 1000MG 100ML IV BAG As Ordered ONE (08:16)
[2023-02-17] MEDS ORDERED: KETOROLAC 60MG 2ML VIAL As Ordered ONE (09:45)
[2023-02-17] MEDS ORDERED: ePHEDrine SULFATE 25 MG/5 ML(5MG/ML) SYRINGE As Ordered ONE (09:48)
[2023-02-17] MEDS ORDERED: SUGAMMADEX SODIUM 500 MG/5 ML VIAL (BRIDION) As Ordered ONE (09:52)
[2023-02-17] MEDS ORDERED: HYDROMORPHONE HCL 0.5 MG/ 0.5 ML SYRINGE IV PRN (10:20)
[2023-02-17] MEDS ORDERED: LR 1,000 ML IV SCH (10:20)
[2023-02-17] MEDS ORDERED: ONDANSETRON 4MG 2ML VIAL IV PRN (10:20)
[2023-02-17] MEDS ORDERED: oxyCODONE 5MG TAB PO PRN (10:20)
[2023-02-17] MEDS ORDERED: fentaNYL 100 MCG/2 ML INJECTION IV PRN (10:20)
[2023-02-17 12:30] VITALS: BP 143/67; TEMP 97; O2SAT 96
== END 2023-02-17 12:30 | disposition home or self-care (01) ==
LOC: M SDC 07:05
PROVIDERS: ATTEND Surgery
DX: K80.10 Calculus of gallbladder with chronic cholecystitis without obstruction (principal); I10 Essential (primary) hypertension; E78.5 Hyperlipidemia, unspecified; E03.9 Hypothyroidism, unspecified; Z85.3 Personal history of malignant neoplasm of breast; Z92.3 Personal history of irradiation; F41.9 Anxiety disorder, unspecified; F32.A Depression, unspecified; F31.9 Bipolar disorder, unspecified; Z79.82 Long term (current) use of aspirin; Z79.899 Other long term (current) drug therapy; Z87.891 Personal history of nicotine dependence
CPT/HCPCS: 47562; 88304; J0131; J1100; J1885; J2405; J3010; S2900

== ENCOUNTER 2023-02-20 19:22 | Emergency (ER) | payer MEDICARE, OTHER ==
[~2023-02-20] VITALS: Ht 152.4 cm; Wt 52.6 kg
[2023-02-20 20:25] LABS: BASO # 0.1 10^3/uL (0.0-0.2); EOS # 0.2 10^3/uL (0.0-0.5); EOS % 2.2 % (0.0-3.0); HEMATOCRIT 41.1 % (36.0-47.0); LYMPH # 2.8 10^3/uL (1.5-5.0); LYMPH % 34.9 % (24.0-44.0); MEAN CORPUSCULAR HEMOGLOBIN 30.4 pg (27.0-33.0); MEAN CORPUSCULAR HGB CONC 34.1 g/dl (32.0-36.5); MEAN CORPUSCULAR VOLUME 89.3 fl (80.0-96.0); MONO # 0.7 10^3/uL (0.0-0.8); MONO % 9.3 % (2.0-8.0); NEUTROPHILS # 4.1 10^3/uL (1.5-8.5); NEUTROPHILS % 52.2 % (36.0-66.0); PLATELET COUNT, AUTOMATED 220 10^3/uL (150-450); WHITE BLOOD COUNT 7.9 10^3/uL (4.0-10.0)
[2023-02-20 20:48] LABS: LIPASE 42 U/L (12-53)
[2023-02-20 20:50] LABS: ALBUMIN 3.2 G/DL (3.2-5.2); ALKALINE PHOSPHATASE 93 U/L (46-116); ALT/SGPT 327 U/L (7.0-40); AST/SGOT 311 U/L (<34); BILIRUBIN,DIRECT 0.1 MG/DL (<0.4); BILIRUBIN,TOTAL 0.3 MG/DL (0.3-1.2); BLOOD UREA NITROGEN 20 MG/DL (9-23); CALCIUM LEVEL 8.9 MG/DL (8.3-10.6); CARBON DIOXIDE LEVEL 24 MMOL/L (20-31); CHLORIDE LEVEL 108 MMOL/L (98-107); CREATININE FOR GFR 0.77 MG/DL (0.55-1.30); GLOMERULAR FILTRATION RATE > 60.0 (>32); GLUCOSE, FASTING 92 MG/DL (74-106); POTASSIUM SERUM 3.9 MMOL/L (3.5-5.1); SODIUM LEVEL 140 MMOL/L (136-145); TOTAL PROTEIN 6.3 G/DL (5.7-8.2)
[2023-02-21] MEDS ORDERED: NS 500 ML IV ONE (06:50)
[2023-02-21] MEDS ORDERED: ISOVUE-370 76% 100ML VIAL As Ordered ONE (07:31)
[2023-02-21 10:33] VITALS: BP 138/73; TEMP 97.2; O2SAT 96
[2023-02-22] MEDS ORDERED: VITMTA PO (06:16)
[2023-02-22] MEDS ORDERED: SENN-23 PO (06:16)
[2023-02-22] MEDS ORDERED: LATU80TA2 PO (06:16)
[2023-02-22] MEDS ORDERED: DIVA1TAB48 PO (06:16)
[2023-02-22] MEDS ORDERED: SYNT75TA PO (06:16)
[2023-02-22] MEDS ORDERED: ASPI-161 PO (06:17)
[2023-02-22] MEDS ORDERED: AMLO2.5T3 PO (06:17)
[2023-02-22] MEDS ORDERED: FLOM0.4C39 PO (06:17)
[2023-02-22] MEDS ORDERED: ACET650T15 PO (09:08)
== END 2023-02-21 10:35 | disposition home or self-care (01) ==
LOC: M ED 19:22
DX: G89.18 Other acute postprocedural pain (principal); Z90.49 Acquired absence of other specified parts of digestive tract; I10 Essential (primary) hypertension; F03.90 Unspecified dementia, unspecified severity, without behavioral disturbance, psychotic disturbance, mood disturbance, and anxiety; F31.9 Bipolar disorder, unspecified; Z79.52 Long term (current) use of systemic steroids; Z79.810 Long term (current) use of selective estrogen receptor modulators (SERMs); Z79.82 Long term (current) use of aspirin
CPT/HCPCS: 74177; 80048; 80076; 83690; 85025; 99284; Q9967

== ENCOUNTER 2023-02-21 18:22 | Inpatient (IN) | payer MEDICARE, OTHER ==
[~2023-02-21] VITALS: Ht 152.4 cm; Wt 57.3 kg
[2023-02-21] MEDS ORDERED: traMADol 50 MG TAB PO ONE (21:10)
[2023-02-21 22:46] LABS: BASO # 0.1 10^3/uL (0.0-0.2); BASO % 0.3 % (0.0-1.0); EOS % 0.1 % (0.0-3.0); HEMATOCRIT 43.2 % (36.0-47.0); HEMOGLOBIN 14.5 g/dl (12.0-15.5); LYMPH # 0.9 10^3/uL (1.5-5.0); LYMPH % 4.7 % (24.0-44.0); MEAN CORPUSCULAR HEMOGLOBIN 30.6 pg (27.0-33.0); MEAN CORPUSCULAR HGB CONC 33.6 g/dl (32.0-36.5); MEAN CORPUSCULAR VOLUME 91.1 fl (80.0-96.0); MONO # 0.9 10^3/uL (0.0-0.8); MONO % 4.6 % (2.0-8.0); NEUTROPHILS # 17.5 10^3/uL (1.5-8.5); NEUTROPHILS % 89.8 % (36.0-66.0); PLATELET COUNT, AUTOMATED 274 10^3/uL (150-450); RED BLOOD COUNT 4.74 10^6/uL (4.00-5.40); WHITE BLOOD COUNT 19.5 10^3/uL (4.0-10.0)
[2023-02-21 22:52] LABS: RSV AMPLIFICATION NEGATIVE (NEGATIVE)
[2023-02-22] VITALS (26 sets, daily range): BP systolic 114–160; BP diastolic 55–80; TEMP 97.1–100.2; O2SAT 82–95
[2023-02-22 03:22] LABS: BLOOD UREA NITROGEN 25 MG/DL (9-23); CALCIUM LEVEL 8.3 MG/DL (8.3-10.6); CARBON DIOXIDE LEVEL 19 MMOL/L (20-31); CHLORIDE LEVEL 111 MMOL/L (98-107); CREATININE FOR GFR 0.86 MG/DL (0.55-1.30); GLOMERULAR FILTRATION RATE > 60.0 (>32); GLUCOSE, FASTING 246 MG/DL (74-106); POTASSIUM SERUM 4.6 MMOL/L (3.5-5.1); SODIUM LEVEL 140 MMOL/L (136-145)
[2023-02-22] MEDS ORDERED: MORPHINE 2 MG/ML 1ML VIAL IV PRN ×2 (03:30→14:25)
[2023-02-22] MEDS ORDERED: GLUCAGON INJ 1MG VIAL SC PRN (04:25)
[2023-02-22] MEDS ORDERED: DEXTROSE 50% 50ML SYRINGE IV PRN (04:25)
[2023-02-22] MEDS ORDERED: GLUCOSE 4GM CHEW TABLET PO PRN (04:25)
[2023-02-22] MEDS ORDERED: INSULIN LISPRO (NovoLOG) PER UNIT SC SCH ×3 (05:50→21:00)
[2023-02-22] MEDS ORDERED: SYNT75TA PO (06:16)
[2023-02-22] MEDS ORDERED: SENN-23 PO (06:16)
[2023-02-22] MEDS ORDERED: DIVA1TAB48 PO (06:16)
[2023-02-22] MEDS ORDERED: VITMTA PO (06:16)
[2023-02-22] MEDS ORDERED: LATU80TA2 PO (06:16)
[2023-02-22] MEDS ORDERED: ASPI-161 PO (06:17)
[2023-02-22] MEDS ORDERED: AMLO2.5T3 PO (06:17)
[2023-02-22] MEDS ORDERED: FLOM0.4C39 PO (06:17)
[2023-02-22] MEDS: LEVOTHYROXINE 75MCG TABLET (0.075MG) PO SCH (06:19)
[2023-02-22] MEDS ORDERED: HOME MED LIST COMPLETE! XX SCH ×2 (06:20→09:10)
[2023-02-22] MEDS: INSULIN LISPRO (NovoLOG) PER UNIT SC SCH ×3 (06:48→17:51)
[2023-02-22 07:38] LABS: HEMOGLOBIN 12.9 g/dl (12.0-15.5); MEAN CORPUSCULAR HEMOGLOBIN 30.9 pg (27.0-33.0); MEAN CORPUSCULAR HGB CONC 33.9 g/dl (32.0-36.5); MEAN CORPUSCULAR VOLUME 90.9 fl (80.0-96.0); PLATELET COUNT, AUTOMATED 214 10^3/uL (150-450); RED BLOOD COUNT 4.18 10^6/uL (4.00-5.40); WHITE BLOOD COUNT 15.5 10^3/uL (4.0-10.0)
[2023-02-22] MEDS ORDERED: NS 1,000 ML IV SCH (09:00)
[2023-02-22] MEDS ORDERED: NS 1,000 ML IV ONE (09:00)
[2023-02-22] MEDS ORDERED: ACET650T15 PO (09:08)
[2023-02-22] MEDS ORDERED: CALCIUM CARBONATE 500 MG CHEW U/D PO PRN (09:20)
[2023-02-22] MEDS: MULTIVITAMINS/MINERALS THERAP 1 TAB PO SCH (09:57)
[2023-02-22] MEDS: ASPIRIN 81MG ENTERIC TABLET PO SCH (09:57)
[2023-02-22] MEDS ORDERED: MORPHINE 4 MG/ML 1ML VIAL IV PRN (10:35)
[2023-02-22] MEDS: PERCOCET 5MG/325MG TAB PO PRN (12:16)
[2023-02-22] MEDS ORDERED: LR 1,000 ML IV ONE (17:30)
[2023-02-22] MEDS: LR 1,000 ML IV SCH (18:50)
[2023-02-22] MEDS ORDERED: ONDANSETRON 4MG 2ML VIAL As Ordered ONE (20:46)
[2023-02-22] MEDS ORDERED: ROCURONIUM BROMIDE 50MG/5ML VIAL As Ordered ONE (20:46)
[2023-02-22] MEDS ORDERED: LIDOCAINE 2% 100MG/5ML SDV (FOR ANES.) As Ordered ONE (20:46)
[2023-02-22] MEDS ORDERED: propofoL 200 MG/20 ML VIAL As Ordered ONE (20:46)
[2023-02-22] MEDS ORDERED: fentaNYL 100 MCG/2 ML INJECTION As Ordered ONE (20:46)
[2023-02-22] MEDS ORDERED: ceFAZolin 2 GM/D5W 50 ML IV BAG As Ordered ONE (20:50)
[2023-02-22] MEDS ORDERED: TRANEXAMIC ACID 100 MG/ML 10ML VIAL As Ordered ONE (20:50)
[2023-02-22] MEDS ORDERED: HEPARIN SOD (PORCINE) 5000UNITS/ML 1ML VIAL/SYRINGE SQ SCH (21:00)
[2023-02-22] MEDS: TAMSULOSIN 0.4 MG CAP PO SCH (21:00)
[2023-02-22] MEDS: DIVALPROEX 125 MG TAB PO SCH (21:00)
[2023-02-22] MEDS: LURASIDONE HCL 40MG TAB (LATUDA) PO SCH (21:00)
[2023-02-22] MEDS ORDERED: SUGAMMADEX SODIUM 500 MG/5 ML VIAL (BRIDION) As Ordered ONE (22:05)
[2023-02-22] MEDS ORDERED: ePHEDrine SULFATE 25 MG/5 ML(5MG/ML) SYRINGE As Ordered ONE (22:16)
[2023-02-22] MEDS ORDERED: PHENYLephrine 500MCG 5ML (100MCG/ML) SYRINGE As Ordered ONE (22:25)
[2023-02-23] VITALS (7 sets, daily range): BP systolic 99–123; BP diastolic 54–65; TEMP 97.5–98.8; O2SAT 97–99
[2023-02-23] MEDS: INSULIN LISPRO (NovoLOG) PER UNIT SC SCH ×5 (06:00→20:33)
[2023-02-23] MEDS: LEVOTHYROXINE 75MCG TABLET (0.075MG) PO SCH (06:09)
[2023-02-23] MEDS: LR 1,000 ML IV SCH (06:10)
[2023-02-23] MEDS: ceFAZolin SOD 2 GM in IV 1 EA IV SCH ×2 (06:10→12:55)
[2023-02-23 08:29] LABS: HEMATOCRIT 23.4 % (36.0-47.0); MEAN CORPUSCULAR HEMOGLOBIN 31.6 pg (27.0-33.0); MEAN CORPUSCULAR HGB CONC 33.8 g/dl (32.0-36.5); MEAN CORPUSCULAR VOLUME 93.6 fl (80.0-96.0); PLATELET COUNT, AUTOMATED 173 10^3/uL (150-450); WHITE BLOOD COUNT 19.5 10^3/uL (4.0-10.0)
[2023-02-23 08:36] LABS: HEMOGLOBIN 7.9 g/dl (12.0-15.5)
[2023-02-23 08:44] LABS: BLOOD UREA NITROGEN 27 MG/DL (9-23); CALCIUM LEVEL 8.1 MG/DL (8.3-10.6); CARBON DIOXIDE LEVEL 20 MMOL/L (20-31); CHLORIDE LEVEL 111 MMOL/L (98-107); CREATININE FOR GFR 0.69 MG/DL (0.55-1.30); GLOMERULAR FILTRATION RATE > 60.0 (>32); GLUCOSE, FASTING 182 MG/DL (74-106); POTASSIUM SERUM 4.5 MMOL/L (3.5-5.1); SODIUM LEVEL 138 MMOL/L (136-145)
[2023-02-23] MEDS: MULTIVITAMINS/MINERALS THERAP 1 TAB PO SCH (09:05)
[2023-02-23] MEDS: ASPIRIN 81MG ENTERIC TABLET PO SCH (09:05)
[2023-02-23] MEDS: ACETAMINOPHEN TAB 650MG DOSE (2X325MG) PO PRN ×2 (09:05→18:17)
[2023-02-23] MEDS: LURASIDONE HCL 40MG TAB (LATUDA) PO SCH (20:23)
[2023-02-23] MEDS: TAMSULOSIN 0.4 MG CAP PO SCH (20:23)
[2023-02-23] MEDS: DIVALPROEX 125 MG TAB PO SCH (20:23)
[2023-02-23] MEDS: PERCOCET 5MG/325MG TAB PO PRN (20:25)
[2023-02-24] VITALS (23 sets, daily range): BP systolic 103–123; BP diastolic 51–81; TEMP 98.1–102; O2SAT 88–99
[2023-02-24] MEDS: LEVOTHYROXINE 75MCG TABLET (0.075MG) PO SCH (05:43)
[2023-02-24 07:00] LABS: MEAN CORPUSCULAR HEMOGLOBIN 31.9 pg (27.0-33.0); MEAN CORPUSCULAR HGB CONC 34.1 g/dl (32.0-36.5); MEAN CORPUSCULAR VOLUME 93.7 fl (80.0-96.0); PLATELET COUNT, AUTOMATED 132 10^3/uL (150-450); RED BLOOD COUNT 1.91 10^6/uL (4.00-5.40)
[2023-02-24 07:24] LABS: BLOOD UREA NITROGEN 22 MG/DL (9-23); CALCIUM LEVEL 7.3 MG/DL (8.3-10.6); CARBON DIOXIDE LEVEL 24 MMOL/L (20-31); CHLORIDE LEVEL 108 MMOL/L (98-107); CREATININE FOR GFR 0.66 MG/DL (0.55-1.30); GLOMERULAR FILTRATION RATE > 60.0 (>32); GLUCOSE, FASTING 132 MG/DL (74-106); POTASSIUM SERUM 4.5 MMOL/L (3.5-5.1); SODIUM LEVEL 137 MMOL/L (136-145)
[2023-02-24 07:33] LABS: HEMATOCRIT 17.9 % (36.0-47.0)
[2023-02-24 07:35] LABS: HEMOGLOBIN 6.1 g/dl (12.0-15.5)
[2023-02-24] MEDS: ASPIRIN 81MG ENTERIC TABLET PO SCH (09:00)
[2023-02-24] MEDS: MULTIVITAMINS/MINERALS THERAP 1 TAB PO SCH (09:01)
[2023-02-24] MEDS: INSULIN LISPRO (NovoLOG) PER UNIT SC SCH ×4 (09:02→20:23)
[2023-02-24] MEDS: ENOXAPARIN 40MG/0.4ML SYRINGE (J1650 PER 10MG) SC SCH ×2 (09:03→10:16)
[2023-02-24 09:23] LABS: HEMATOCRIT 20.9 % (36.0-47.0)
[2023-02-24 09:27] LABS: HEMOGLOBIN 6.9 g/dl (12.0-15.5)
[2023-02-24] MEDS: ACETAMINOPHEN TAB 650MG DOSE (2X325MG) PO PRN ×3 (10:22→23:45)
[2023-02-24] MEDS ORDERED: NS 1,000 ML IV SCH (14:40)
[2023-02-24 16:43] LABS: BILIRUBIN,DIRECT 0.6 MG/DL (<0.4); BILIRUBIN,TOTAL 1.2 MG/DL (0.3-1.2); CHOLESTEROL RISK RATIO 2.89 (<5); HDL CHOLESTEROL 40.8 MG/DL (>40); LDL CHOLESTEROL 60.2 MG/DL (<100); NON-HDL-C 77.2 MG/DL; TOTAL PROTEIN 4.3 G/DL (5.7-8.2)
[2023-02-24 20:09] LABS: HEMATOCRIT 26.8 % (36.0-47.0)
[2023-02-24] MEDS: LR 1,000 ML IV SCH (20:09)
[2023-02-24 20:10] LABS: HEMOGLOBIN 9.1 g/dl (12.0-15.5)
[2023-02-24] MEDS: TAMSULOSIN 0.4 MG CAP PO SCH (20:25)
[2023-02-24] MEDS: LURASIDONE HCL 40MG TAB (LATUDA) PO SCH (20:25)
[2023-02-24] MEDS: DIVALPROEX 125 MG TAB PO SCH (20:25)
[2023-02-25] VITALS (19 sets, daily range): BP systolic 130–140; BP diastolic 63–70; TEMP 97.7–101.5; O2SAT 94–99
[2023-02-25] MEDS: ACETAMINOPHEN 325 MG TAB PO ONE ×2 (01:55→02:07)
[2023-02-25] MEDS: LEVOTHYROXINE 75MCG TABLET (0.075MG) PO SCH (06:39)
[2023-02-25] MEDS: LR 1,000 ML IV SCH (06:43)
[2023-02-25] MEDS ORDERED: ACETAMINOPHEN 1000MG 100ML IV BAG IV ONE (07:00)
[2023-02-25 07:32] LABS: BASO # 0.1 10^3/uL (0.0-0.2); BASO % 0.6 % (0.0-1.0); EOS # 0.5 10^3/uL (0.0-0.5); EOS % 2.8 % (0.0-3.0); HEMATOCRIT 26.7 % (36.0-47.0); HEMOGLOBIN 8.9 g/dl (12.0-15.5); LYMPH # 1.7 10^3/uL (1.5-5.0); LYMPH % 10.5 % (24.0-44.0); MEAN CORPUSCULAR HEMOGLOBIN 28.2 pg (27.0-33.0); MEAN CORPUSCULAR HGB CONC 33.3 g/dl (32.0-36.5); MEAN CORPUSCULAR VOLUME 84.5 fl (80.0-96.0); MONO # 1.3 10^3/uL (0.0-0.8); MONO % 8.3 % (2.0-8.0); NEUTROPHILS # 12.4 10^3/uL (1.5-8.5); NEUTROPHILS % 76.8 % (36.0-66.0); PLATELET COUNT, AUTOMATED 147 10^3/uL (150-450); RED BLOOD COUNT 3.16 10^6/uL (4.00-5.40); WHITE BLOOD COUNT 16.1 10^3/uL (4.0-10.0)
[2023-02-25] MEDS: INSULIN LISPRO (NovoLOG) PER UNIT SC SCH ×4 (08:06→22:20)
[2023-02-25] MEDS: MULTIVITAMINS/MINERALS THERAP 1 TAB PO SCH (08:09)
[2023-02-25 08:14] LABS: ALBUMIN 1.9 G/DL (3.2-5.2); ALKALINE PHOSPHATASE 81 U/L (46-116); ALT/SGPT 95 U/L (7.0-40); AST/SGOT 36 U/L (<34); BILIRUBIN,TOTAL 1.1 MG/DL (0.3-1.2); BLOOD UREA NITROGEN 12 MG/DL (9-23); CALCIUM LEVEL 7.8 MG/DL (8.3-10.6); CARBON DIOXIDE LEVEL 24 MMOL/L (20-31); CHLORIDE LEVEL 107 MMOL/L (98-107); CREATININE FOR GFR 0.46 MG/DL (0.55-1.30); GLOMERULAR FILTRATION RATE > 60.0 (>32); GLUCOSE, FASTING 127 MG/DL (74-106); POTASSIUM SERUM 4.1 MMOL/L (3.5-5.1); SODIUM LEVEL 138 MMOL/L (136-145); TOTAL PROTEIN 4.3 G/DL (5.7-8.2)
[2023-02-25 09:15] LABS: APPEARANCE, URINE HAZY (CLEAR); BACTERIA, URINE AUTO 1+ (NEGATIVE); BILIRUBIN, URINE AUTO NEGATIVE (NEGATIVE); BLOOD, URINE BLOOD 1+ (NEGATIVE); COLOR, URINE YELLOW (YELLOW); GLUCOSE, URINE (UA) AUTO 1+ mg/dL (NEGATIVE); KETONE, URINE AUTO NEGATIVE (NEGATIVE); LEUKOCYTE ESTERASE, URINE AUTO 3+ (NEGATIVE); NITRITE, URINE AUTO NEGATIVE (NEGATIVE); PROTEIN, URINE AUTO NEGATIVE (NEGATIVE); RBC, URINE AUTO 76 /HPF (0-3); SPECIFIC GRAVITY URINE AUTO 1.005 (1.002-1.035); SQUAMOUS EPITHELIAL CELL UR AU 0 /HPF (0-6); UROBILINOGEN, URINE AUTO 0.2 mg/dL (0.0-2.0); WBC, URINE AUTO 111 /HPF (0-3)
[2023-02-25] MEDS: cefTRIAXone SOD 2 GM in D5W MINI-BAG PLUS 50 ML IV SCH (09:56)
[2023-02-25] MEDS ORDERED: SODIUM CHLORIDE 0.9% 1000ML IV ONE (12:10)
[2023-02-25 19:50] LABS: HEMOGLOBIN 8.8 g/dl (12.0-15.5); MEAN CORPUSCULAR HEMOGLOBIN 28.3 pg (27.0-33.0); MEAN CORPUSCULAR HGB CONC 32.6 g/dl (32.0-36.5); MEAN CORPUSCULAR VOLUME 86.8 fl (80.0-96.0); PLATELET COUNT, AUTOMATED 180 10^3/uL (150-450); RED BLOOD COUNT 3.11 10^6/uL (4.00-5.40); WHITE BLOOD COUNT 15.9 10^3/uL (4.0-10.0)
[2023-02-25 20:16] LABS: BLOOD UREA NITROGEN 8 MG/DL (9-23); CALCIUM LEVEL 7.6 MG/DL (8.3-10.6); CARBON DIOXIDE LEVEL 24 MMOL/L (20-31); CHLORIDE LEVEL 107 MMOL/L (98-107); CREATININE FOR GFR 0.43 MG/DL (0.55-1.30); GLOMERULAR FILTRATION RATE > 60.0 (>32); GLUCOSE, FASTING 160 MG/DL (74-106); POTASSIUM SERUM 3.8 MMOL/L (3.5-5.1); SODIUM LEVEL 140 MMOL/L (136-145)
[2023-02-25] MEDS: TAMSULOSIN 0.4 MG CAP PO SCH (22:20)
[2023-02-25] MEDS: DIVALPROEX 125 MG TAB PO SCH (22:20)
[2023-02-25] MEDS: LURASIDONE HCL 40MG TAB (LATUDA) PO SCH (22:20)
[2023-02-25] MEDS: ACETAMINOPHEN TAB 650MG DOSE (2X325MG) PO PRN (22:20)
[2023-02-25] MEDS: MICONAZOLE-7 VAGINAL 2% CREAM 47.7GM PV SCH (22:21)
[2023-02-26] VITALS (7 sets, daily range): BP systolic 120–136; BP diastolic 65–86; TEMP 99–100.4; O2SAT 96–97
[2023-02-26] MEDS: LEVOTHYROXINE 75MCG TABLET (0.075MG) PO SCH (06:41)
[2023-02-26 06:52] LABS: HEMATOCRIT 27.4 % (36.0-47.0); HEMOGLOBIN 9.1 g/dl (12.0-15.5); MEAN CORPUSCULAR HEMOGLOBIN 28.5 pg (27.0-33.0); MEAN CORPUSCULAR HGB CONC 33.2 g/dl (32.0-36.5); MEAN CORPUSCULAR VOLUME 85.9 fl (80.0-96.0); PLATELET COUNT, AUTOMATED 192 10^3/uL (150-450); RED BLOOD COUNT 3.19 10^6/uL (4.00-5.40); WHITE BLOOD COUNT 14.4 10^3/uL (4.0-10.0)
[2023-02-26 07:28] LABS: BLOOD UREA NITROGEN 9 MG/DL (9-23); CALCIUM LEVEL 7.7 MG/DL (8.3-10.6); CARBON DIOXIDE LEVEL 27 MMOL/L (20-31); CHLORIDE LEVEL 108 MMOL/L (98-107); CREATININE FOR GFR 0.39 MG/DL (0.55-1.30); GLOMERULAR FILTRATION RATE > 60.0 (>32); GLUCOSE, FASTING 112 MG/DL (74-106); SODIUM LEVEL 141 MMOL/L (136-145)
[2023-02-26] MEDS: INSULIN LISPRO (NovoLOG) PER UNIT SC SCH ×4 (08:32→21:00)
[2023-02-26] MEDS: MULTIVITAMINS/MINERALS THERAP 1 TAB PO SCH (08:34)
[2023-02-26] MEDS: cefTRIAXone SOD 2 GM in D5W MINI-BAG PLUS 50 ML IV SCH (09:16)
[2023-02-26] MEDS: ACETAMINOPHEN TAB 650MG DOSE (2X325MG) PO PRN ×2 (16:31→21:38)
[2023-02-26] MEDS: PIPERACILLIN/TAZOBACTAM SOD 3.375 GM in D5W MINI-BAG PLUS 50 ML IV SCH ×2 (17:14→23:04)
[2023-02-26] MEDS ORDERED: DOXYCYCLINE HYCLATE 100MG TABLET PO SCH (21:00)
[2023-02-26] MEDS ORDERED: CEFDINIR 300 MG CAP (OMNICEF) PO SCH (21:00)
[2023-02-26] MEDS: TAMSULOSIN 0.4 MG CAP PO SCH (21:37)
[2023-02-26] MEDS: DIVALPROEX 125 MG TAB PO SCH (21:37)
[2023-02-26] MEDS: LURASIDONE HCL 40MG TAB (LATUDA) PO SCH (21:38)
[2023-02-26] MEDS: MICONAZOLE-7 VAGINAL 2% CREAM 47.7GM PV SCH (21:39)
[2023-02-27 03:00] VITALS: TEMP 97.5
[2023-02-27] MEDS: PIPERACILLIN/TAZOBACTAM SOD 3.375 GM in D5W MINI-BAG PLUS 50 ML IV SCH ×4 (04:59→23:35)
[2023-02-27] MEDS: LEVOTHYROXINE 75MCG TABLET (0.075MG) PO SCH (05:41)
[2023-02-27 06:51] VITALS: BP 142/75; TEMP 98.2; O2SAT 98
[2023-02-27] MEDS: MULTIVITAMINS/MINERALS THERAP 1 TAB PO SCH (09:00)
[2023-02-27] MEDS: INSULIN LISPRO (NovoLOG) PER UNIT SC SCH ×4 (09:00→20:57)
[2023-02-27] MEDS: BACITRACIN OINTMENT 30GM TUBE TOP SCH (11:39)
[2023-02-27] MEDS: ACETAMINOPHEN TAB 650MG DOSE (2X325MG) PO PRN ×2 (12:59→20:40)
[2023-02-27] MEDS: TAMSULOSIN 0.4 MG CAP PO SCH (20:39)
[2023-02-27] MEDS: DIVALPROEX 125 MG TAB PO SCH (20:39)
[2023-02-27] MEDS: MICONAZOLE-7 VAGINAL 2% CREAM 47.7GM PV SCH (20:40)
[2023-02-27] MEDS: LURASIDONE HCL 40MG TAB (LATUDA) PO SCH (20:40)
[2023-02-27 22:49] VITALS: BP 130/68; TEMP 97.9; O2SAT 93
[2023-02-28 01:40] VITALS: O2SAT 93
[2023-02-28] MEDS: PIPERACILLIN/TAZOBACTAM SOD 3.375 GM in D5W MINI-BAG PLUS 50 ML IV SCH ×3 (05:49→17:42)
[2023-02-28] MEDS: LEVOTHYROXINE 75MCG TABLET (0.075MG) PO SCH (05:49)
[2023-02-28 06:15] LABS: HEMATOCRIT 27.4 % (36.0-47.0); HEMOGLOBIN 8.8 g/dl (12.0-15.5); MEAN CORPUSCULAR HEMOGLOBIN 28.3 pg (27.0-33.0); MEAN CORPUSCULAR HGB CONC 32.1 g/dl (32.0-36.5); MEAN CORPUSCULAR VOLUME 88.1 fl (80.0-96.0); PLATELET COUNT, AUTOMATED 299 10^3/uL (150-450); RED BLOOD COUNT 3.11 10^6/uL (4.00-5.40); WHITE BLOOD COUNT 9.6 10^3/uL (4.0-10.0)
[2023-02-28 06:37] LABS: BLOOD UREA NITROGEN 16 MG/DL (9-23); CALCIUM LEVEL 7.8 MG/DL (8.3-10.6); CARBON DIOXIDE LEVEL 25 MMOL/L (20-31); CHLORIDE LEVEL 106 MMOL/L (98-107); CREATININE FOR GFR 0.48 MG/DL (0.55-1.30); GLOMERULAR FILTRATION RATE > 60.0 (>32); GLUCOSE, FASTING 121 MG/DL (74-106); POTASSIUM SERUM 4.2 MMOL/L (3.5-5.1); SODIUM LEVEL 138 MMOL/L (136-145)
[2023-02-28 06:43] VITALS: BP 130/67; TEMP 98.2; O2SAT 95
[2023-02-28] MEDS: MULTIVITAMINS/MINERALS THERAP 1 TAB PO SCH (08:24)
[2023-02-28] MEDS: INSULIN LISPRO (NovoLOG) PER UNIT SC SCH ×4 (08:24→21:00)
[2023-02-28] MEDS: BACITRACIN OINTMENT 30GM TUBE TOP SCH (08:38)
[2023-02-28] MEDS ORDERED: AMOXICILLIN 500 MG CAP PO SCH (14:00)
[2023-02-28] MEDS: ACETAMINOPHEN TAB 650MG DOSE (2X325MG) PO PRN ×2 (16:35→20:34)
[2023-02-28] MEDS: DIVALPROEX 125 MG TAB PO SCH (20:34)
[2023-02-28] MEDS: LURASIDONE HCL 40MG TAB (LATUDA) PO SCH (20:34)
[2023-02-28] MEDS: TAMSULOSIN 0.4 MG CAP PO SCH (20:34)
[2023-02-28] MEDS: MICONAZOLE-7 VAGINAL 2% CREAM 47.7GM PV SCH (20:35)
[2023-02-28 21:38] VITALS: BP 133/68; TEMP 98.2; O2SAT 97
[2023-03-01] MEDS: PIPERACILLIN/TAZOBACTAM SOD 3.375 GM in D5W MINI-BAG PLUS 50 ML IV SCH ×3 (01:01→12:38)
[2023-03-01 01:13] VITALS: O2SAT 94
[2023-03-01 02:09] VITALS: BP 127/68; TEMP 98.1; O2SAT 93
[2023-03-01] MEDS: LEVOTHYROXINE 75MCG TABLET (0.075MG) PO SCH (05:34)
[2023-03-01 06:12] LABS: HEMATOCRIT 28.3 % (36.0-47.0); HEMOGLOBIN 8.9 g/dl (12.0-15.5)
[2023-03-01] MEDS: ACETAMINOPHEN TAB 650MG DOSE (2X325MG) PO PRN (08:43)
[2023-03-01] MEDS: MULTIVITAMINS/MINERALS THERAP 1 TAB PO SCH (08:43)
[2023-03-01] MEDS: INSULIN LISPRO (NovoLOG) PER UNIT SC SCH ×2 (08:44→11:25)
[2023-03-01 08:47] VITALS: BP 118/64
[2023-03-01] MEDS: BACITRACIN OINTMENT 30GM TUBE TOP SCH (08:48)
== END 2023-03-01 14:25 | DRG 480 ==
LOC: M ED 18:22 → ENRESERV 02-22 00:03 → M ED INP 02-22 03:28 → ENRESERVTM 02-22 03:46 → M PCU 02-22 04:44 → M MS5PR 02-22 23:48
PROVIDERS: ADMIT Family Medicine; ATTEND Internal Medicine
PROC: 0QS606Z Reposition Right Upper Femur with Intramedullary Internal Fixation Device, Open Approach (ICD-10-PCS; principal; 2023-02-22 17:00)
DX: S72.141A Displaced intertrochanteric fracture of right femur, initial encounter for closed fracture (principal); A41.9 Sepsis, unspecified organism; K85.90 Acute pancreatitis without necrosis or infection, unspecified; G93.41 Metabolic encephalopathy; N39.0 Urinary tract infection, site not specified; D62 Acute posthemorrhagic anemia; S72.21XA Displaced subtrochanteric fracture of right femur, initial encounter for closed fracture; I10 Essential (primary) hypertension; E03.9 Hypothyroidism, unspecified; D69.6 Thrombocytopenia, unspecified; M81.0 Age-related osteoporosis without current pathological fracture; F31.9 Bipolar disorder, unspecified; Z88.8 Allergy status to other drugs, medicaments and biological substances; Z79.899 Other long term (current) drug therapy; Z79.82 Long term (current) use of aspirin; Z85.3 Personal history of malignant neoplasm of breast; Z92.3 Personal history of irradiation; K76.0 Fatty (change of) liver, not elsewhere classified; E11.65 Type 2 diabetes mellitus with hyperglycemia; Z85.51 Personal history of malignant neoplasm of bladder; M10.9 Gout, unspecified; Z98.41 Cataract extraction status, right eye; Z98.42 Cataract extraction status, left eye

== ENCOUNTER → 2023-03-06 | Outpatient (REF) ==
[~2023-03-06] MED LIST changes: +ACET650T15 PO; +ASPI-161 PO; +SENN-23 PO; +SYNT75TA PO; +VITMTA PO
[2023-03-06 09:21] LABS: HEMOGLOBIN 9.7 g/dl (12.0-15.5); MEAN CORPUSCULAR HGB CONC 31.3 g/dl (32.0-36.5); MEAN CORPUSCULAR VOLUME 92.5 fl (80.0-96.0); PLATELET COUNT, AUTOMATED 677 10^3/uL (150-450); RED BLOOD COUNT 3.35 10^6/uL (4.00-5.40); WHITE BLOOD COUNT 8.3 10^3/uL (4.0-10.0)
[2023-03-06 09:50] LABS: ERYTHROCYTE SEDIMENTATION RATE 81 mm/hr (0-30)
[2023-03-06 10:16] LABS: BLOOD UREA NITROGEN 17 MG/DL (9-23); CALCIUM LEVEL 8.6 MG/DL (8.3-10.6); CARBON DIOXIDE LEVEL 24 MMOL/L (20-31); CHLORIDE LEVEL 105 MMOL/L (98-107); CREATININE FOR GFR 0.58 MG/DL (0.55-1.30); GLOMERULAR FILTRATION RATE > 60.0 (>32); GLUCOSE, FASTING 86 MG/DL (74-106); POTASSIUM SERUM 4.8 MMOL/L (3.5-5.1); SODIUM LEVEL 138 MMOL/L (136-145)
== END ==
PROVIDERS: ATTEND Physician Assistant
DX: S72.001D Fracture of unspecified part of neck of right femur, subsequent encounter for closed fracture with routine healing (principal)

== ENCOUNTER → 2023-03-13 | Outpatient (REF) ==
[2023-03-13 09:17] LABS: HEMATOCRIT 34.5 % (36.0-47.0); HEMOGLOBIN 10.7 g/dl (12.0-15.5); MEAN CORPUSCULAR VOLUME 93.5 fl (80.0-96.0); PLATELET COUNT, AUTOMATED 556 10^3/uL (150-450); RED BLOOD COUNT 3.69 10^6/uL (4.00-5.40); WHITE BLOOD COUNT 6.7 10^3/uL (4.0-10.0)
[2023-03-13 09:29] LABS: BLOOD UREA NITROGEN 22 MG/DL (9-23); CALCIUM LEVEL 8.7 MG/DL (8.3-10.6); CARBON DIOXIDE LEVEL 24 MMOL/L (20-31); CHLORIDE LEVEL 106 MMOL/L (98-107); CREATININE FOR GFR 0.58 MG/DL (0.55-1.30); GLOMERULAR FILTRATION RATE > 60.0 (>32); GLUCOSE, FASTING 107 MG/DL (74-106); POTASSIUM SERUM 4.3 MMOL/L (3.5-5.1); SODIUM LEVEL 141 MMOL/L (136-145)
[2023-03-13 09:32] LABS: ERYTHROCYTE SEDIMENTATION RATE 75 mm/hr (0-30)
== END ==
PROVIDERS: ATTEND Physician Assistant
DX: S72.001D Fracture of unspecified part of neck of right femur, subsequent encounter for closed fracture with routine healing (principal)

== ENCOUNTER → 2023-03-17 | Outpatient (CLI) | payer MEDICARE, OTHER | LOC: M SOG 08:58 | PROVIDERS: ATTEND Orthopaedic Surgery | DX: S72.141A Displaced intertrochanteric fracture of right femur, initial encounter for closed fracture (principal); W18.30XA Fall on same level, unspecified, initial encounter; Y92.009 Unspecified place in unspecified non-institutional (private) residence as the place of occurrence of the external cause ==

== ENCOUNTER → 2023-03-20 | Outpatient (REF) ==
[2023-03-20 08:54] LABS: HEMATOCRIT 34.6 % (36.0-47.0); HEMOGLOBIN 10.7 g/dl (12.0-15.5); MEAN CORPUSCULAR HGB CONC 30.9 g/dl (32.0-36.5); MEAN CORPUSCULAR VOLUME 93.8 fl (80.0-96.0); PLATELET COUNT, AUTOMATED 313 10^3/uL (150-450); RED BLOOD COUNT 3.69 10^6/uL (4.00-5.40); WHITE BLOOD COUNT 6.3 10^3/uL (4.0-10.0)
[2023-03-20 09:27] LABS: BLOOD UREA NITROGEN 20 MG/DL (9-23); CALCIUM LEVEL 8.3 MG/DL (8.3-10.6); CARBON DIOXIDE LEVEL 24 MMOL/L (20-31); CHLORIDE LEVEL 108 MMOL/L (98-107); CREATININE FOR GFR 0.57 MG/DL (0.55-1.30); GLOMERULAR FILTRATION RATE > 60.0 (>32); GLUCOSE, FASTING 85 MG/DL (74-106); POTASSIUM SERUM 4.4 MMOL/L (3.5-5.1); SODIUM LEVEL 140 MMOL/L (136-145)
[2023-03-20 09:53] LABS: ERYTHROCYTE SEDIMENTATION RATE 40 mm/hr (0-30)
== END ==
PROVIDERS: ATTEND Physician Assistant
DX: S72.001D Fracture of unspecified part of neck of right femur, subsequent encounter for closed fracture with routine healing (principal)

== ENCOUNTER → 2023-03-27 | Outpatient (REF) ==
[2023-03-27 09:20] LABS: HEMATOCRIT 39.7 % (36.0-47.0); HEMOGLOBIN 12.3 g/dl (12.0-15.5); MEAN CORPUSCULAR VOLUME 93.6 fl (80.0-96.0); PLATELET COUNT, AUTOMATED 345 10^3/uL (150-450); RED BLOOD COUNT 4.24 10^6/uL (4.00-5.40); WHITE BLOOD COUNT 7.5 10^3/uL (4.0-10.0)
[2023-03-27 09:51] LABS: C REACTIVE PROTEIN QUANTITATIV < 0.40 MG/DL (<1.0)
[2023-03-27 09:53] LABS: BLOOD UREA NITROGEN 20 MG/DL (9-23); CALCIUM LEVEL 10.1 MG/DL (8.3-10.6); CARBON DIOXIDE LEVEL 22 MMOL/L (20-31); CHLORIDE LEVEL 106 MMOL/L (98-107); CREATININE FOR GFR 0.51 MG/DL (0.55-1.30); GLOMERULAR FILTRATION RATE > 60.0 (>32); GLUCOSE, FASTING 121 MG/DL (74-106); POTASSIUM SERUM 4.3 MMOL/L (3.5-5.1); SODIUM LEVEL 139 MMOL/L (136-145)
[2023-03-27 10:20] LABS: ERYTHROCYTE SEDIMENTATION RATE 43 mm/hr (0-30)
== END ==
PROVIDERS: ATTEND Physician Assistant
DX: S72.91XD Unspecified fracture of right femur, subsequent encounter for closed fracture with routine healing (principal)

== ENCOUNTER → 2023-04-17 | Outpatient (REF) ==
[2023-04-17 08:21] LABS: HEMATOCRIT 39.2 % (36.0-47.0); HEMOGLOBIN 12.3 g/dl (12.0-15.5); MEAN CORPUSCULAR HEMOGLOBIN 29.4 pg (27.0-33.0); MEAN CORPUSCULAR HGB CONC 31.4 g/dl (32.0-36.5); MEAN CORPUSCULAR VOLUME 93.8 fl (80.0-96.0); PLATELET COUNT, AUTOMATED 277 10^3/uL (150-450); RED BLOOD COUNT 4.18 10^6/uL (4.00-5.40); WHITE BLOOD COUNT 6.8 10^3/uL (4.0-10.0)
[2023-04-17 08:41] LABS: ERYTHROCYTE SEDIMENTATION RATE 15 mm/hr (0-30)
[2023-04-17 08:54] LABS: C REACTIVE PROTEIN QUANTITATIV < 0.40 MG/DL (<1.0)
[2023-04-17 08:56] LABS: BLOOD UREA NITROGEN 16 MG/DL (9-23); CARBON DIOXIDE LEVEL 24 MMOL/L (20-31); CHLORIDE LEVEL 109 MMOL/L (98-107); GLOMERULAR FILTRATION RATE > 60.0 (>32); GLUCOSE, FASTING 81 MG/DL (74-106); POTASSIUM SERUM 4.9 MMOL/L (3.5-5.1); SODIUM LEVEL 143 MMOL/L (136-145)
== END ==
PROVIDERS: ATTEND Internal Medicine
DX: S72.001D Fracture of unspecified part of neck of right femur, subsequent encounter for closed fracture with routine healing (principal)

== ENCOUNTER → 2023-04-19 | Outpatient (CLI) | payer MEDICARE, OTHER | LOC: M SOG 10:45 | PROVIDERS: ATTEND Orthopaedic Surgery | DX: S72.141D Displaced intertrochanteric fracture of right femur, subsequent encounter for closed fracture with routine healing (principal); Y93.9 Activity, unspecified; Y92.9 Unspecified place or not applicable ==

== ENCOUNTER → 2023-05-04 | Outpatient (REF) | payer MEDICARE, OTHER ==
[2023-05-04 13:14] LABS: HEMATOCRIT 45.5 % (36.0-47.0); HEMOGLOBIN 14.6 g/dl (12.0-15.5); MEAN CORPUSCULAR HEMOGLOBIN 29.1 pg (27.0-33.0); MEAN CORPUSCULAR HGB CONC 32.1 g/dl (32.0-36.5); MEAN CORPUSCULAR VOLUME 90.6 fl (80.0-96.0); PLATELET COUNT, AUTOMATED 306 10^3/uL (150-450); RED BLOOD COUNT 5.02 10^6/uL (4.00-5.40); WHITE BLOOD COUNT 7.2 10^3/uL (4.0-10.0)
[2023-05-04 13:18] LABS: ALBUMIN 3.8 G/DL (3.2-5.2); ALKALINE PHOSPHATASE 73 U/L (46-116); ALT/SGPT 29 U/L (7.0-40); AST/SGOT 18 U/L (<34); BILIRUBIN,TOTAL 0.5 MG/DL (0.3-1.2); BLOOD UREA NITROGEN 18 MG/DL (9-23); CALCIUM LEVEL 10.8 MG/DL (8.3-10.6); CARBON DIOXIDE LEVEL 24 MMOL/L (20-31); CHLORIDE LEVEL 108 MMOL/L (98-107); CREATININE FOR GFR 0.65 MG/DL (0.55-1.30); GLOMERULAR FILTRATION RATE > 60.0 (>32); GLUCOSE, FASTING 82 MG/DL (74-106); IRON (FE) 67 UG/DL (50-170); PERCENT SATURATION 22.9 % (13.2-45.0); POTASSIUM SERUM 4.6 MMOL/L (3.5-5.1); SODIUM LEVEL 142 MMOL/L (136-145); TOTAL IRON BINDING CAPACITY 293 UG/DL (250-425); TOTAL PROTEIN 7.9 G/DL (5.7-8.2)
[2023-05-04 13:19] LABS: FREE T4 1.56 NG/DL (0.89-1.76); VITAMIN B12 LEVEL 766 PG/ML (211-911)
[2023-05-04 13:20] LABS: FERRITIN 116.9 NG/ML (7.3-270.7); THYROID STIMULATING HORMONE 0.673 uIU/ML (0.55-4.78)
[2023-05-04 13:21] LABS: FOLATE > 24.00 NG/ML (>5.4)
[2023-05-04 13:25] LABS: HEMOGLOBIN A1c 5.2 % (4.0-6.0)
== END ==
LOC: M SFHCADAM 10:05
PROVIDERS: ATTEND Family Medicine
DX: F31.64 Bipolar disorder, current episode mixed, severe, with psychotic features (principal); E03.9 Hypothyroidism, unspecified; E78.2 Mixed hyperlipidemia; E11.9 Type 2 diabetes mellitus without complications

== ENCOUNTER → 2023-05-31 | Outpatient (CLI) | payer MEDICARE, OTHER ==
[~2023-05-31] MED LIST changes: +MECL-209 PO; -MECL1TAB31 PO
== END ==
LOC: M SOG 08:01
PROVIDERS: ATTEND Orthopaedic Surgery
DX: S72.141D Displaced intertrochanteric fracture of right femur, subsequent encounter for closed fracture with routine healing (principal)

== ENCOUNTER → 2023-06-27 | Outpatient (CLI) | payer MEDICARE, OTHER | LOC: M WHC 12:14 | PROVIDERS: ATTEND Family Medicine | DX: Z12.31 Encounter for screening mammogram for malignant neoplasm of breast (principal); Z85.3 Personal history of malignant neoplasm of breast ==

== ENCOUNTER → 2023-08-09 | Outpatient (REF) | payer MEDICARE | LOC: M SFHCWAGY 10:06 | PROVIDERS: ATTEND Nurse Practitioner Family | DX: B37.89 Other sites of candidiasis (principal) ==

== ENCOUNTER → 2023-08-30 | Outpatient (CLI) | payer MEDICARE, OTHER | LOC: M SOG 08:01 | PROVIDERS: ATTEND Orthopaedic Surgery | DX: S72.141D Displaced intertrochanteric fracture of right femur, subsequent encounter for closed fracture with routine healing (principal); Z98.890 Other specified postprocedural states ==

== ENCOUNTER 2023-10-30 11:46 | Inpatient (IN) | payer MEDICARE, OTHER ==
[~2023-10-30] VITALS: Ht 152.4 cm; Wt 54.0 kg
[~2023-10-30 11:46] MED LIST changes: -ASPI-161 PO; +ASPI-615 PO; -RISP-7 PO; +RISP0.5T82 PO
[2023-10-30 14:24] LABS: RSV AMPLIFICATION NEGATIVE (NEGATIVE)
[2023-10-30 14:46] LABS: BASO # 0.1 10^3/uL (0.0-0.2); BASO % 0.9 % (0.0-1.0); EOS # 0.2 10^3/uL (0.0-0.5); EOS % 2.9 % (0.0-3.0); HEMATOCRIT 44.1 % (36.0-47.0); HEMOGLOBIN 15.2 g/dl (12.0-15.5); LYMPH # 1.5 10^3/uL (1.5-5.0); LYMPH % 19.3 % (24.0-44.0); MEAN CORPUSCULAR HEMOGLOBIN 32.1 pg (27.0-33.0); MEAN CORPUSCULAR HGB CONC 34.5 g/dl (32.0-36.5); MEAN CORPUSCULAR VOLUME 93.2 fl (80.0-96.0); MONO # 0.7 10^3/uL (0.0-0.8); MONO % 8.2 % (2.0-8.0); NEUTROPHILS # 5.4 10^3/uL (1.5-8.5); NEUTROPHILS % 68.3 % (36.0-66.0); PLATELET COUNT, AUTOMATED 232 10^3/uL (150-450); RED BLOOD COUNT 4.73 10^6/uL (4.00-5.40)
[2023-10-30] MEDS: LIDOCAINE 2% 5ML JELLY UROJET TOP ONE (15:00)
[2023-10-30 15:01] LABS: INR 0.98; PROTHROMBIN TIME 12.7 SECONDS (12.5-14.5)
[2023-10-30 15:02] LABS: PARTIAL THROMBOPLASTIN TIME 24.4 SECONDS (24.8-34.2)
[2023-10-30 15:08] LABS: CK-MB VALUE MASS 1.1 NG/ML (<3.6)
[2023-10-30 15:12] LABS: THYROID STIMULATING HORMONE 1.084 uIU/ML (0.55-4.78)
[2023-10-30 15:13] LABS: ALBUMIN 3.5 G/DL (3.2-5.2); ALKALINE PHOSPHATASE 62 U/L (46-116); ALT/SGPT 19 U/L (7.0-40); AST/SGOT 15 U/L (<34); BILIRUBIN,DIRECT 0.2 MG/DL (<0.4); BILIRUBIN,TOTAL 0.5 MG/DL (0.3-1.2); BLOOD UREA NITROGEN 13 MG/DL (9-23); CARBON DIOXIDE LEVEL 26 MMOL/L (20-31); CHLORIDE LEVEL 110 MMOL/L (98-107); CREATININE FOR GFR 0.65 MG/DL (0.55-1.30); GLOMERULAR FILTRATION RATE > 60.0 (>32); GLUCOSE, FASTING 103 MG/DL (74-106); MAGNESIUM LEVEL 2.1 MG/DL (1.8-2.4); SODIUM LEVEL 142 MMOL/L (136-145)
[2023-10-30 15:16] LABS: PROCALCITONIN 0.06 ng/ml
[2023-10-30 15:20] LABS: CPK CREATINE PHOSPHOKINASE 55 U/L (34-145)
[2023-10-30] MEDS: cefTRIAXone SOD 1 GM in D5W MINI-BAG PLUS 50 ML IV ONE (16:39)
[2023-10-30] MEDS ORDERED: [UNRECOGNIZED DRUG - CODE] PO (19:08)
[2023-10-30] MEDS ORDERED: ACET-897 PO (19:08)
[2023-10-30] MEDS ORDERED: HOME MED LIST COMPLETE! XX SCH (19:15)
[2023-10-30] MEDS ORDERED: NIRMATRELVIR/RITONAVIR CO-PACK (EMERGENCY USE AUTH) PO SCH (21:00)
[2023-10-30 21:45] VITALS: BP 147/103; TEMP 97.7; O2SAT 96
[2023-10-30] MEDS: D5W/0.45% SODIUM CHLORIDE 1,000 ML IV SCH (22:08)
[2023-10-30] MEDS: LURASIDONE HCL 40MG TAB (LATUDA) PO SCH (22:16)
[2023-10-30] MEDS: DIVALPROEX 125 MG TAB PO SCH (22:16)
[2023-10-30 22:40] VITALS: BP 149/75
[2023-10-31 00:22] VITALS: BP 146/74; TEMP 98.1; O2SAT 93
[2023-10-31 05:31] VITALS: BP 131/70; TEMP 97.9; O2SAT 91
[2023-10-31] MEDS: LEVOTHYROXINE 75MCG TABLET (0.075MG) PO SCH (05:33)
[2023-10-31 06:46] LABS: HEMATOCRIT 38.6 % (36.0-47.0); HEMOGLOBIN 13.4 g/dl (12.0-15.5); MEAN CORPUSCULAR HEMOGLOBIN 32.3 pg (27.0-33.0); MEAN CORPUSCULAR HGB CONC 34.7 g/dl (32.0-36.5); PLATELET COUNT, AUTOMATED 195 10^3/uL (150-450); RED BLOOD COUNT 4.15 10^6/uL (4.00-5.40); WHITE BLOOD COUNT 7.4 10^3/uL (4.0-10.0)
[2023-10-31 07:19] LABS: BLOOD UREA NITROGEN 14 MG/DL (9-23); CARBON DIOXIDE LEVEL 24 MMOL/L (20-31); CHLORIDE LEVEL 108 MMOL/L (98-107); CREATININE FOR GFR 0.52 MG/DL (0.55-1.30); GLOMERULAR FILTRATION RATE > 60.0 (>32); GLUCOSE, FASTING 130 MG/DL (74-106); POTASSIUM SERUM 4.1 MMOL/L (3.5-5.1); SODIUM LEVEL 138 MMOL/L (136-145)
[2023-10-31] MEDS: FOLIC ACID 1MG TAB PO SCH (08:43)
[2023-10-31 14:00] VITALS: BP 136/75; TEMP 97.3; O2SAT 97
[2023-10-31] MEDS: cefTRIAXone SOD 1 GM in D5W MINI-BAG PLUS 50 ML IV SCH (18:19)
[2023-10-31 22:00] VITALS: BP 133/66; TEMP 97.5; O2SAT 97
[2023-11-01 05:26] VITALS: BP 164/85; TEMP 97; O2SAT 97
[2023-11-01 14:00] VITALS: BP 139/75; TEMP 97.2; O2SAT 96
[2023-11-02 06:00] VITALS: BP 131/71; TEMP 97.5; O2SAT 92
[2023-11-02] MEDS: BACTRIM 160MG/800MG DS TAB PO SCH (09:32)
[2023-11-02 14:00] VITALS: BP 140/74; TEMP 97.5; O2SAT 94
[2023-11-02 20:27] VITALS: BP 140/81; TEMP 97.5; O2SAT 97
[2023-11-02] MEDS: guaiFENesin SYRUP 200MG 10ML UDC PO PRN (21:26)
[2023-11-03 06:03] VITALS: BP 142/81; TEMP 96.8; O2SAT 98
[2023-11-03 20:29] VITALS: BP 142/69; TEMP 97.3; O2SAT 96
[2023-11-04 14:00] VITALS: BP 132/67; TEMP 97.3; O2SAT 95
[2023-11-04 20:28] VITALS: BP 110/57; O2SAT 94
[2023-11-05 04:42] VITALS: BP 112/56; TEMP 96.8; O2SAT 96
[2023-11-06 06:00] VITALS: BP 122/62; TEMP 97.2; O2SAT 98
[2023-11-07 05:43] VITALS: BP 108/62; TEMP 97.2; O2SAT 94
[2023-11-08 05:57] VITALS: BP 126/67; TEMP 97.6; O2SAT 98
[2023-11-08 08:53] VITALS: BP 114/64
[2023-11-09 05:36] VITALS: BP 114/61; TEMP 97; O2SAT 97
== END 2023-11-09 11:05 | DRG 689 ==
LOC: M ED 11:46 → EDSEX 11:46 → EDBD 11:46 → M ED INP 17:48 → M MS5PR 20:20
PROVIDERS: ADMIT Family Medicine; ATTEND Student in an Organized Health Care Education/Training Program
DX: N39.0 Urinary tract infection, site not specified (principal); U07.1 COVID-19; E11.9 Type 2 diabetes mellitus without complications; I10 Essential (primary) hypertension; R53.1 Weakness; F31.9 Bipolar disorder, unspecified; E03.9 Hypothyroidism, unspecified; M19.90 Unspecified osteoarthritis, unspecified site; F03.90 Unspecified dementia, unspecified severity, without behavioral disturbance, psychotic disturbance, mood disturbance, and anxiety; G50.0 Trigeminal neuralgia; Z92.3 Personal history of irradiation; M10.9 Gout, unspecified; Z88.8 Allergy status to other drugs, medicaments and biological substances; Z79.899 Other long term (current) drug therapy; Z79.82 Long term (current) use of aspirin; Z85.51 Personal history of malignant neoplasm of bladder; Z85.3 Personal history of malignant neoplasm of breast; Z98.41 Cataract extraction status, right eye; Z98.42 Cataract extraction status, left eye; Z80.3 Family history of malignant neoplasm of breast

== ENCOUNTER → 2023-11-20 | Outpatient (REF) ==
[~2023-11-20] MED LIST changes: +ACET-897 PO; +[UNRECOGNIZED DRUG - CODE] PO
[2023-11-20 11:48] LABS: HEMATOCRIT 41.1 % (36.0-47.0); HEMOGLOBIN 13.4 g/dl (12.0-15.5); MEAN CORPUSCULAR HEMOGLOBIN 31.9 pg (27.0-33.0); MEAN CORPUSCULAR HGB CONC 32.6 g/dl (32.0-36.5); MEAN CORPUSCULAR VOLUME 97.9 fl (80.0-96.0); PLATELET COUNT, AUTOMATED 320 10^3/uL (150-450); WHITE BLOOD COUNT 6.3 10^3/uL (4.0-10.0)
[2023-11-20 12:19] LABS: BLOOD UREA NITROGEN 20 MG/DL (9-23); CALCIUM LEVEL 8.6 MG/DL (8.3-10.6); CARBON DIOXIDE LEVEL 22 MMOL/L (20-31); CHLORIDE LEVEL 107 MMOL/L (98-107); CREATININE FOR GFR 0.61 MG/DL (0.55-1.30); GLOMERULAR FILTRATION RATE > 60.0 (>32); GLUCOSE, FASTING 140 MG/DL (74-106); POTASSIUM SERUM 4.1 MMOL/L (3.5-5.1); SODIUM LEVEL 141 MMOL/L (136-145)
== END ==
PROVIDERS: ATTEND Physician Assistant
DX: I10 Essential (primary) hypertension (principal)

== ENCOUNTER → 2023-11-22 | Outpatient (REF) | payer MEDICARE, OTHER | LOC: M SOG 07:59 → EDSTATUS 10:14 | PROVIDERS: ATTEND Orthopaedic Surgery | DX: S72.141D Displaced intertrochanteric fracture of right femur, subsequent encounter for closed fracture with routine healing (principal); Y93.9 Activity, unspecified; Y92.9 Unspecified place or not applicable ==

== ENCOUNTER → 2023-11-27 | Outpatient (REF) ==
[2023-11-27 12:40] LABS: HEMATOCRIT 45.1 % (36.0-47.0); HEMOGLOBIN 14.6 g/dl (12.0-15.5); MEAN CORPUSCULAR HEMOGLOBIN 31.3 pg (27.0-33.0); MEAN CORPUSCULAR HGB CONC 32.4 g/dl (32.0-36.5); MEAN CORPUSCULAR VOLUME 96.8 fl (80.0-96.0); PLATELET COUNT, AUTOMATED 265 10^3/uL (150-450); RED BLOOD COUNT 4.66 10^6/uL (4.00-5.40); WHITE BLOOD COUNT 6.4 10^3/uL (4.0-10.0)
[2023-11-27 12:56] LABS: BLOOD UREA NITROGEN 18 MG/DL (9-23); CALCIUM LEVEL 8.7 MG/DL (8.3-10.6); CARBON DIOXIDE LEVEL 25 MMOL/L (20-31); CHLORIDE LEVEL 105 MMOL/L (98-107); GLOMERULAR FILTRATION RATE > 60.0 (>32); GLUCOSE, FASTING 112 MG/DL (74-106); POTASSIUM SERUM 4.1 MMOL/L (3.5-5.1); SODIUM LEVEL 140 MMOL/L (136-145)
== END ==
PROVIDERS: ATTEND Physician Assistant
DX: I10 Essential (primary) hypertension (principal)

== ENCOUNTER → 2023-12-11 | Outpatient (REF) ==
[2023-12-11 09:17] LABS: HEMOGLOBIN 13.6 g/dl (12.0-15.5); MEAN CORPUSCULAR HEMOGLOBIN 31.9 pg (27.0-33.0); MEAN CORPUSCULAR HGB CONC 33.2 g/dl (32.0-36.5); MEAN CORPUSCULAR VOLUME 96.2 fl (80.0-96.0); PLATELET COUNT, AUTOMATED 254 10^3/uL (150-450); RED BLOOD COUNT 4.26 10^6/uL (4.00-5.40); WHITE BLOOD COUNT 6.6 10^3/uL (4.0-10.0)
[2023-12-11 09:18] LABS: BLOOD UREA NITROGEN 17 MG/DL (9-23); CALCIUM LEVEL 8.7 MG/DL (8.3-10.6); CARBON DIOXIDE LEVEL 24 MMOL/L (20-31); CHLORIDE LEVEL 110 MMOL/L (98-107); CREATININE FOR GFR 0.59 MG/DL (0.55-1.30); GLOMERULAR FILTRATION RATE > 60.0 (>32); GLUCOSE, FASTING 96 MG/DL (74-106); POTASSIUM SERUM 4.3 MMOL/L (3.5-5.1); SODIUM LEVEL 142 MMOL/L (136-145)
== END ==
PROVIDERS: ATTEND Internal Medicine
DX: I10 Essential (primary) hypertension (principal)

== ENCOUNTER → 2024-01-15 | Outpatient (REF) | payer MEDICARE, OTHER ==
[2024-01-15 11:22] LABS: HEMATOCRIT 41.9 % (36.0-47.0); HEMOGLOBIN 13.9 g/dl (12.0-15.5); MEAN CORPUSCULAR HEMOGLOBIN 31.4 pg (27.0-33.0); MEAN CORPUSCULAR HGB CONC 33.2 g/dl (32.0-36.5); MEAN CORPUSCULAR VOLUME 94.6 fl (80.0-96.0); PLATELET COUNT, AUTOMATED 243 10^3/uL (150-450); RED BLOOD COUNT 4.43 10^6/uL (4.00-5.40); WHITE BLOOD COUNT 5.9 10^3/uL (4.0-10.0)
[2024-01-15 11:49] LABS: BLOOD UREA NITROGEN 21 MG/DL (9-23); CALCIUM LEVEL 8.8 MG/DL (8.3-10.6); CARBON DIOXIDE LEVEL 21 MMOL/L (20-31); CHLORIDE LEVEL 105 MMOL/L (98-107); CREATININE FOR GFR 0.62 MG/DL (0.55-1.30); GLOMERULAR FILTRATION RATE > 60.0 (>32); GLUCOSE, FASTING 160 MG/DL (74-106); POTASSIUM SERUM 4.1 MMOL/L (3.5-5.1); SODIUM LEVEL 141 MMOL/L (136-145)
== END ==
PROVIDERS: ATTEND Internal Medicine
DX: I10 Essential (primary) hypertension (principal)

== ENCOUNTER → 2024-02-01 | Outpatient (CLI) | payer MEDICARE, OTHER | LOC: M RAD 13:49 | PROVIDERS: ATTEND Physician Assistant | DX: M25.552 Pain in left hip (principal) ==

== ENCOUNTER → 2024-02-12 | Outpatient (REF) | payer MEDICARE, OTHER ==
[2024-02-12 11:26] LABS: HEMOGLOBIN 13.9 g/dl (12.0-15.5); MEAN CORPUSCULAR HEMOGLOBIN 30.6 pg (27.0-33.0); MEAN CORPUSCULAR HGB CONC 32.3 g/dl (32.0-36.5); MEAN CORPUSCULAR VOLUME 94.7 fl (80.0-96.0); PLATELET COUNT, AUTOMATED 250 10^3/uL (150-450); RED BLOOD COUNT 4.54 10^6/uL (4.00-5.40); WHITE BLOOD COUNT 6.5 10^3/uL (4.0-10.0)
[2024-02-12 12:03] LABS: BLOOD UREA NITROGEN 23 MG/DL (9-23); CALCIUM LEVEL 9.5 MG/DL (8.3-10.6); CARBON DIOXIDE LEVEL 23 MMOL/L (20-31); CHLORIDE LEVEL 107 MMOL/L (98-107); CREATININE FOR GFR 0.64 MG/DL (0.55-1.30); GLOMERULAR FILTRATION RATE > 60.0 (>32); GLUCOSE, FASTING 130 MG/DL (74-106); POTASSIUM SERUM 4.6 MMOL/L (3.5-5.1); SODIUM LEVEL 140 MMOL/L (136-145)
== END ==
PROVIDERS: ATTEND Internal Medicine
DX: I10 Essential (primary) hypertension (principal)

== ENCOUNTER → 2024-02-19 | Outpatient (REF) | payer MEDICARE, OTHER | PROVIDERS: ATTEND Physician Assistant | DX: R53.1 Weakness (principal); Z53.8 Procedure and treatment not carried out for other reasons ==

== ENCOUNTER → 2024-02-19 | Outpatient (REF) | payer MEDICARE, OTHER ==
[2024-02-19 12:36] LABS: BASO # 0.1 10^3/uL (0.0-0.2); BASO % 1.2 % (0.0-1.0); EOS # 0.1 10^3/uL (0.0-0.5); EOS % 1.5 % (0.0-3.0); HEMATOCRIT 43.5 % (36.0-47.0); HEMOGLOBIN 14.5 g/dl (12.0-15.5); LYMPH # 2.7 10^3/uL (1.5-5.0); MEAN CORPUSCULAR HGB CONC 33.3 g/dl (32.0-36.5); MEAN CORPUSCULAR VOLUME 92.9 fl (80.0-96.0); MONO # 0.9 10^3/uL (0.0-0.8); MONO % 10.1 % (2.0-8.0); NEUTROPHILS # 4.8 10^3/uL (1.5-8.5); PLATELET COUNT, AUTOMATED 333 10^3/uL (150-450); RED BLOOD COUNT 4.68 10^6/uL (4.00-5.40); WHITE BLOOD COUNT 8.6 10^3/uL (4.0-10.0)
[2024-02-19 13:07] LABS: BLOOD UREA NITROGEN 23 MG/DL (9-23); CALCIUM LEVEL 9.4 MG/DL (8.3-10.6); CARBON DIOXIDE LEVEL 24 MMOL/L (20-31); CHLORIDE LEVEL 106 MMOL/L (98-107); CREATININE FOR GFR 0.64 MG/DL (0.55-1.30); GLOMERULAR FILTRATION RATE > 60.0 (>32); GLUCOSE, FASTING 143 MG/DL (74-106); POTASSIUM SERUM 4.4 MMOL/L (3.5-5.1); SODIUM LEVEL 140 MMOL/L (136-145)
== END ==
PROVIDERS: ATTEND Physician Assistant
DX: R53.1 Weakness (principal)

== ENCOUNTER → 2024-03-13 | Outpatient (REF) | payer MEDICARE, OTHER ==
[2024-03-13 10:16] LABS: HEMATOCRIT 43.1 % (36.0-47.0); HEMOGLOBIN 14.2 g/dl (12.0-15.5); MEAN CORPUSCULAR HGB CONC 32.9 g/dl (32.0-36.5); MEAN CORPUSCULAR VOLUME 94.1 fl (80.0-96.0); PLATELET COUNT, AUTOMATED 259 10^3/uL (150-450); RED BLOOD COUNT 4.58 10^6/uL (4.00-5.40); WHITE BLOOD COUNT 6.5 10^3/uL (4.0-10.0)
[2024-03-13 10:42] LABS: VALPROIC ACID (DEPAKOTE) 9.8 UG/ML (50.0-100.0)
[2024-03-13 10:44] LABS: BLOOD UREA NITROGEN 20 MG/DL (9-23); CARBON DIOXIDE LEVEL 22 MMOL/L (20-31); CHLORIDE LEVEL 107 MMOL/L (98-107); CREATININE FOR GFR 0.55 MG/DL (0.55-1.30); GLOMERULAR FILTRATION RATE > 60.0 (>32); GLUCOSE, FASTING 206 MG/DL (74-106); POTASSIUM SERUM 4.4 MMOL/L (3.5-5.1); SODIUM LEVEL 141 MMOL/L (136-145)
[2024-03-13 10:46] LABS: THYROID STIMULATING HORMONE 2.133 uIU/ML (0.55-4.78)
== END ==
PROVIDERS: ATTEND Internal Medicine
DX: I10 Essential (primary) hypertension (principal)

== ENCOUNTER → 2024-04-15 | Outpatient (REF) | payer MEDICARE, OTHER ==
[2024-04-15 11:41] LABS: HEMOGLOBIN 13.4 g/dl (12.0-15.5); MEAN CORPUSCULAR HEMOGLOBIN 31.5 pg (27.0-33.0); MEAN CORPUSCULAR HGB CONC 33.5 g/dl (32.0-36.5); MEAN CORPUSCULAR VOLUME 94.1 fl (80.0-96.0); PLATELET COUNT, AUTOMATED 256 10^3/uL (150-450); RED BLOOD COUNT 4.25 10^6/uL (4.00-5.40); WHITE BLOOD COUNT 6.7 10^3/uL (4.0-10.0)
[2024-04-15 11:56] LABS: BLOOD UREA NITROGEN 21 MG/DL (9-23); CALCIUM LEVEL 9.2 MG/DL (8.3-10.6); CARBON DIOXIDE LEVEL 23 MMOL/L (20-31); CHLORIDE LEVEL 104 MMOL/L (98-107); CREATININE FOR GFR 0.64 MG/DL (0.55-1.30); GLOMERULAR FILTRATION RATE > 60.0 (>32); GLUCOSE, FASTING 172 MG/DL (74-106); POTASSIUM SERUM 4.3 MMOL/L (3.5-5.1); SODIUM LEVEL 137 MMOL/L (136-145)
== END ==
PROVIDERS: ATTEND Internal Medicine
DX: I10 Essential (primary) hypertension (principal)

== ENCOUNTER → 2024-05-13 | Outpatient (REF) | payer MEDICARE, OTHER | PROVIDERS: ATTEND Internal Medicine | DX: I10 Essential (primary) hypertension (principal); Z53.8 Procedure and treatment not carried out for other reasons ==

== ENCOUNTER → 2024-05-15 | Outpatient (REF) | payer MEDICARE, OTHER ==
[2024-05-15 11:57] LABS: HEMATOCRIT 42.5 % (36.0-47.0); HEMOGLOBIN 13.8 g/dl (12.0-15.5); MEAN CORPUSCULAR HEMOGLOBIN 31.1 pg (27.0-33.0); MEAN CORPUSCULAR HGB CONC 32.5 g/dl (32.0-36.5); MEAN CORPUSCULAR VOLUME 95.7 fl (80.0-96.0); PLATELET COUNT, AUTOMATED 246 10^3/uL (150-450); RED BLOOD COUNT 4.44 10^6/uL (4.00-5.40); WHITE BLOOD COUNT 5.9 10^3/uL (4.0-10.0)
[2024-05-15 12:23] LABS: BLOOD UREA NITROGEN 19 MG/DL (9-23); CALCIUM LEVEL 9.6 MG/DL (8.3-10.6); CARBON DIOXIDE LEVEL 21 MMOL/L (20-31); CHLORIDE LEVEL 106 MMOL/L (98-107); CREATININE FOR GFR 0.62 MG/DL (0.55-1.30); GLOMERULAR FILTRATION RATE > 60.0 (>32); GLUCOSE, FASTING 194 MG/DL (74-106); POTASSIUM SERUM 4.3 MMOL/L (3.5-5.1); SODIUM LEVEL 140 MMOL/L (136-145)
== END ==
PROVIDERS: ATTEND Internal Medicine
DX: I10 Essential (primary) hypertension (principal)

== ENCOUNTER → 2024-06-05 | Outpatient (REF) | payer MEDICARE, OTHER | PROVIDERS: ATTEND Physician Assistant | DX: R05.9 Cough, unspecified (principal); Z53.8 Procedure and treatment not carried out for other reasons ==

== ENCOUNTER → 2024-06-19 | Outpatient (REF) | payer MEDICARE, OTHER ==
[2024-06-19 09:03] LABS: HEMATOCRIT 43.4 % (36.0-47.0); HEMOGLOBIN 14.2 g/dl (12.0-15.5); MEAN CORPUSCULAR HEMOGLOBIN 31.3 pg (27.0-33.0); MEAN CORPUSCULAR HGB CONC 32.7 g/dl (32.0-36.5); MEAN CORPUSCULAR VOLUME 95.6 fl (80.0-96.0); PLATELET COUNT, AUTOMATED 283 10^3/uL (150-450); RED BLOOD COUNT 4.54 10^6/uL (4.00-5.40); WHITE BLOOD COUNT 7.8 10^3/uL (4.0-10.0)
[2024-06-19 09:27] LABS: BLOOD UREA NITROGEN 17 MG/DL (9-23); CALCIUM LEVEL 9.4 MG/DL (8.3-10.6); CARBON DIOXIDE LEVEL 24 MMOL/L (20-31); CHLORIDE LEVEL 108 MMOL/L (98-107); CREATININE FOR GFR 0.62 MG/DL (0.55-1.30); GLOMERULAR FILTRATION RATE > 60.0 (>32); GLUCOSE, FASTING 114 MG/DL (74-106); POTASSIUM SERUM 4.6 MMOL/L (3.5-5.1); SODIUM LEVEL 141 MMOL/L (136-145)
== END ==
PROVIDERS: ATTEND Internal Medicine
DX: I10 Essential (primary) hypertension (principal)

== ENCOUNTER → 2024-07-03 | Outpatient (CLI) | payer MEDICARE, OTHER | LOC: M WHC 11:44 | PROVIDERS: ATTEND Physician Assistant | DX: Z12.31 Encounter for screening mammogram for malignant neoplasm of breast (principal) ==

== ENCOUNTER → 2024-07-17 | Outpatient (REF) | payer MEDICARE, OTHER ==
[2024-07-17 09:42] LABS: HEMATOCRIT 43.6 % (36.0-47.0); HEMOGLOBIN 14.2 g/dl (12.0-15.5); MEAN CORPUSCULAR HEMOGLOBIN 31.4 pg (27.0-33.0); MEAN CORPUSCULAR HGB CONC 32.6 g/dl (32.0-36.5); MEAN CORPUSCULAR VOLUME 96.5 fl (80.0-96.0); PLATELET COUNT, AUTOMATED 284 10^3/uL (150-450); RED BLOOD COUNT 4.52 10^6/uL (4.00-5.40); WHITE BLOOD COUNT 8.7 10^3/uL (4.0-10.0)
[2024-07-17 10:08] LABS: VALPROIC ACID (DEPAKOTE) 12.5 UG/ML (50.0-100.0)
[2024-07-17 10:11] LABS: BLOOD UREA NITROGEN 18 MG/DL (9-23); CALCIUM LEVEL 9.6 MG/DL (8.3-10.6); CARBON DIOXIDE LEVEL 22 MMOL/L (20-31); CHLORIDE LEVEL 107 MMOL/L (98-107); CREATININE FOR GFR 0.59 MG/DL (0.55-1.30); GLOMERULAR FILTRATION RATE > 60.0 (>32); GLUCOSE, FASTING 147 MG/DL (74-106); POTASSIUM SERUM 4.3 MMOL/L (3.5-5.1); SODIUM LEVEL 139 MMOL/L (136-145)
[2024-07-17 10:13] LABS: THYROID STIMULATING HORMONE 1.536 uIU/ML (0.55-4.78)
== END ==
PROVIDERS: ATTEND Internal Medicine
DX: I10 Essential (primary) hypertension (principal)

== ENCOUNTER → 2024-08-12 | Outpatient (REF) | payer MEDICARE, OTHER ==
[~2024-08-12] MED LIST changes: +MINO-13 PO; -MINO100C80 PO
[2024-08-12 12:03] LABS: HEMATOCRIT 44.3 % (36.0-47.0); HEMOGLOBIN 14.2 g/dl (12.0-15.5); MEAN CORPUSCULAR HEMOGLOBIN 30.5 pg (27.0-33.0); MEAN CORPUSCULAR HGB CONC 32.1 g/dl (32.0-36.5); MEAN CORPUSCULAR VOLUME 95.3 fl (80.0-96.0); PLATELET COUNT, AUTOMATED 270 10^3/uL (150-450); RED BLOOD COUNT 4.65 10^6/uL (4.00-5.40); WHITE BLOOD COUNT 5.5 10^3/uL (4.0-10.0)
[2024-08-12 12:48] LABS: BLOOD UREA NITROGEN 16 MG/DL (9-23); CALCIUM LEVEL 9.2 MG/DL (8.3-10.6); CARBON DIOXIDE LEVEL 23 MMOL/L (20-31); CHLORIDE LEVEL 104 MMOL/L (98-107); CREATININE FOR GFR 0.65 MG/DL (0.55-1.30); GLOMERULAR FILTRATION RATE > 60.0 (>32); GLUCOSE, FASTING 212 MG/DL (74-106); POTASSIUM SERUM 4.5 MMOL/L (3.5-5.1); SODIUM LEVEL 140 MMOL/L (136-145)
== END ==
PROVIDERS: ATTEND Internal Medicine
DX: I10 Essential (primary) hypertension (principal)

== ENCOUNTER → 2024-08-20 | Outpatient (REF) | payer MEDICARE, OTHER | PROVIDERS: ATTEND Physician Assistant | DX: R05.9 Cough, unspecified (principal) ==

== ENCOUNTER → 2024-09-16 | Outpatient (REF) | payer MEDICARE, OTHER ==
[2024-09-16 11:16] LABS: HEMATOCRIT 44.1 % (36.0-47.0); HEMOGLOBIN 14.2 g/dl (12.0-15.5); MEAN CORPUSCULAR HEMOGLOBIN 30.7 pg (27.0-33.0); MEAN CORPUSCULAR HGB CONC 32.2 g/dl (32.0-36.5); MEAN CORPUSCULAR VOLUME 95.5 fl (80.0-96.0); PLATELET COUNT, AUTOMATED 255 10^3/uL (150-450); RED BLOOD COUNT 4.62 10^6/uL (4.00-5.40); WHITE BLOOD COUNT 6.1 10^3/uL (4.0-10.0)
[2024-09-16 11:45] LABS: BLOOD UREA NITROGEN 16 MG/DL (9-23); CALCIUM LEVEL 9.3 MG/DL (8.3-10.6); CARBON DIOXIDE LEVEL 22 MMOL/L (20-31); CHLORIDE LEVEL 106 MMOL/L (98-107); CREATININE FOR GFR 0.62 MG/DL (0.55-1.30); GLOMERULAR FILTRATION RATE > 60.0 (>32); GLUCOSE, FASTING 224 MG/DL (74-106); POTASSIUM SERUM 4.5 MMOL/L (3.5-5.1); SODIUM LEVEL 139 MMOL/L (136-145)
== END ==
PROVIDERS: ATTEND Internal Medicine
DX: I10 Essential (primary) hypertension (principal)

== ENCOUNTER → 2024-09-20 | Outpatient (REF) | payer MEDICARE, OTHER | PROVIDERS: ATTEND Physician Assistant | DX: R05.9 Cough, unspecified (principal) ==

== ENCOUNTER → 2024-10-16 | Outpatient (REF) | payer MEDICARE, OTHER ==
[2024-10-16 10:50] LABS: HEMATOCRIT 42.2 % (36.0-47.0); HEMOGLOBIN 13.6 g/dl (12.0-15.5); MEAN CORPUSCULAR HEMOGLOBIN 30.3 pg (27.0-33.0); MEAN CORPUSCULAR HGB CONC 32.2 g/dl (32.0-36.5); PLATELET COUNT, AUTOMATED 272 10^3/uL (150-450); RED BLOOD COUNT 4.49 10^6/uL (4.00-5.40); WHITE BLOOD COUNT 8.2 10^3/uL (4.0-10.0)
[2024-10-16 11:16] LABS: BLOOD UREA NITROGEN 17 MG/DL (9-23); CALCIUM LEVEL 8.8 MG/DL (8.3-10.6); CARBON DIOXIDE LEVEL 23 MMOL/L (20-31); CHLORIDE LEVEL 103 MMOL/L (98-107); CREATININE FOR GFR 0.63 MG/DL (0.55-1.30); GLOMERULAR FILTRATION RATE > 60.0 (>32); GLUCOSE, FASTING 214 MG/DL (74-106); POTASSIUM SERUM 4.8 MMOL/L (3.5-5.1); SODIUM LEVEL 139 MMOL/L (136-145)
== END ==
PROVIDERS: ATTEND Internal Medicine
DX: I10 Essential (primary) hypertension (principal)

== ENCOUNTER → 2024-11-07 | Outpatient (REF) | payer MEDICARE, OTHER ==
[2024-11-07 14:37] LABS: BASO # 0.1 10^3/uL (0.0-0.2); BASO % 1.1 % (0.0-1.0); EOS # 0.2 10^3/uL (0.0-0.5); EOS % 2.5 % (0.0-3.0); HEMATOCRIT 42.1 % (36.0-47.0); HEMOGLOBIN 13.9 g/dl (12.0-15.5); LYMPH # 2.9 10^3/uL (1.5-5.0); LYMPH % 32.3 % (24.0-44.0); MEAN CORPUSCULAR HEMOGLOBIN 30.4 pg (27.0-33.0); MEAN CORPUSCULAR VOLUME 92.1 fl (80.0-96.0); MONO # 0.7 10^3/uL (0.0-0.8); MONO % 8.3 % (2.0-8.0); NEUTROPHILS % 55.6 % (36.0-66.0); PLATELET COUNT, AUTOMATED 307 10^3/uL (150-450); RED BLOOD COUNT 4.57 10^6/uL (4.00-5.40); WHITE BLOOD COUNT 8.9 10^3/uL (4.0-10.0)
[2024-11-07 15:10] LABS: BLOOD UREA NITROGEN 20 MG/DL (9-23); CALCIUM LEVEL 9.4 MG/DL (8.3-10.6); CARBON DIOXIDE LEVEL 24 MMOL/L (20-31); CHLORIDE LEVEL 102 MMOL/L (98-107); CREATININE FOR GFR 0.66 MG/DL (0.55-1.30); GLOMERULAR FILTRATION RATE > 60.0 (>32); GLUCOSE, FASTING 146 MG/DL (74-106); POTASSIUM SERUM 4.7 MMOL/L (3.5-5.1); SODIUM LEVEL 137 MMOL/L (136-145); THYROID STIMULATING HORMONE 2.341 uIU/ML (0.55-4.78); THYROXINE (T4) 8.3 UG/DL (4.5-10.9)
== END ==
PROVIDERS: ATTEND Internal Medicine
DX: N39.0 Urinary tract infection, site not specified (principal); Z79.899 Other long term (current) drug therapy

== ENCOUNTER → 2024-11-11 | Outpatient (REF) | payer MEDICARE, OTHER ==
[2024-11-11 11:44] LABS: HEMATOCRIT 41.7 % (36.0-47.0); HEMOGLOBIN 13.7 g/dl (12.0-15.5); MEAN CORPUSCULAR HEMOGLOBIN 30.6 pg (27.0-33.0); MEAN CORPUSCULAR HGB CONC 32.9 g/dl (32.0-36.5); MEAN CORPUSCULAR VOLUME 93.1 fl (80.0-96.0); PLATELET COUNT, AUTOMATED 270 10^3/uL (150-450); RED BLOOD COUNT 4.48 10^6/uL (4.00-5.40); WHITE BLOOD COUNT 7.6 10^3/uL (4.0-10.0)
[2024-11-11 12:24] LABS: THYROID STIMULATING HORMONE 1.959 uIU/ML (0.55-4.78); VALPROIC ACID (DEPAKOTE) 12.9 UG/ML (50.0-100.0)
[2024-11-11 12:26] LABS: BLOOD UREA NITROGEN 18 MG/DL (9-23); CALCIUM LEVEL 9.1 MG/DL (8.3-10.6); CARBON DIOXIDE LEVEL 23 MMOL/L (20-31); CHLORIDE LEVEL 105 MMOL/L (98-107); CREATININE FOR GFR 0.63 MG/DL (0.55-1.30); GLOMERULAR FILTRATION RATE > 60.0 (>32); GLUCOSE, FASTING 184 MG/DL (74-106); POTASSIUM SERUM 4.6 MMOL/L (3.5-5.1); SODIUM LEVEL 139 MMOL/L (136-145)
== END ==
PROVIDERS: ATTEND Internal Medicine
DX: I10 Essential (primary) hypertension (principal)

== ENCOUNTER → 2024-12-18 | Outpatient (REF) | payer MEDICARE, OTHER ==
[2024-12-18 07:48] LABS: HEMATOCRIT 40.8 % (36.0-47.0); HEMOGLOBIN 13.5 g/dl (12.0-15.5); MEAN CORPUSCULAR HEMOGLOBIN 30.9 pg (27.0-33.0); MEAN CORPUSCULAR HGB CONC 33.1 g/dl (32.0-36.5); MEAN CORPUSCULAR VOLUME 93.4 fl (80.0-96.0); PLATELET COUNT, AUTOMATED 263 10^3/uL (150-450); RED BLOOD COUNT 4.37 10^6/uL (4.00-5.40); WHITE BLOOD COUNT 6.6 10^3/uL (4.0-10.0)
[2024-12-18 08:20] LABS: BLOOD UREA NITROGEN 15 MG/DL (9-23); CALCIUM LEVEL 8.9 MG/DL (8.3-10.6); CARBON DIOXIDE LEVEL 24 MMOL/L (20-31); CHLORIDE LEVEL 105 MMOL/L (98-107); CREATININE FOR GFR 0.61 MG/DL (0.55-1.30); GLOMERULAR FILTRATION RATE > 60.0 (>32); GLUCOSE, FASTING 127 MG/DL (74-106); POTASSIUM SERUM 4.5 MMOL/L (3.5-5.1); SODIUM LEVEL 140 MMOL/L (136-145)
== END ==
PROVIDERS: ATTEND Internal Medicine
DX: I10 Essential (primary) hypertension (principal)

== ENCOUNTER → 2025-01-13 | Outpatient (REF) | payer MEDICARE, OTHER ==
[~2025-01-13] MED LIST changes: -FLOM0.4C39 PO; +TAMS-18 PO
[2025-01-13 09:36] LABS: HEMATOCRIT 44.5 % (36.0-47.0); HEMOGLOBIN 14.4 g/dl (12.0-15.5); MEAN CORPUSCULAR HEMOGLOBIN 30.4 pg (27.0-33.0); MEAN CORPUSCULAR HGB CONC 32.4 g/dl (32.0-36.5); MEAN CORPUSCULAR VOLUME 93.9 fl (80.0-96.0); PLATELET COUNT, AUTOMATED 280 10^3/uL (150-450); RED BLOOD COUNT 4.74 10^6/uL (4.00-5.40); WHITE BLOOD COUNT 6.8 10^3/uL (4.0-10.0)
[2025-01-13 10:07] LABS: CALCIUM LEVEL 9.2 MG/DL (8.3-10.6); CREATININE FOR GFR 0.75 MG/DL (0.55-1.30); POTASSIUM SERUM 4.3 MMOL/L (3.5-5.1)
== END ==
PROVIDERS: ATTEND Internal Medicine
DX: I10 Essential (primary) hypertension (principal)

== ENCOUNTER → 2025-03-19 | Outpatient (REF) | payer MEDICARE, OTHER ==
[~2025-03-19] MED LIST changes: +DIVA-41 PO; -DIVA500T94 PO
[2025-03-19 09:10] LABS: PLATELET COUNT, AUTOMATED 270 10^3/uL (150-450)
[2025-03-19 09:35] LABS: VALPROIC ACID (DEPAKOTE) 23.1 UG/ML (50.0-100.0)
[2025-03-19 09:37] LABS: CALCIUM LEVEL 9.7 MG/DL (8.3-10.6); CARBON DIOXIDE LEVEL 21.0 MMOL/L (20-31); CHLORIDE LEVEL 105.0 MMOL/L (98-107); CREATININE FOR GFR 0.71 MG/DL (0.55-1.30); GLOMERULAR FILTRATION RATE 84.3 (>32); POTASSIUM SERUM 4.8 MMOL/L (3.5-5.1); SODIUM LEVEL 143.0 MMOL/L (136-145)
== END ==
PROVIDERS: ATTEND Internal Medicine
DX: I10 Essential (primary) hypertension (principal)

== ENCOUNTER → 2025-03-24 | Outpatient (REF) ==
[2025-03-25 14:21] LABS: APPEARANCE, URINE CLOUDY (CLEAR); BACTERIA, URINE AUTO 1+ (NEGATIVE); BILIRUBIN, URINE AUTO NEGATIVE (NEGATIVE); BLOOD, URINE BLOOD 1+ (NEGATIVE); GLUCOSE, URINE (UA) AUTO NEGATIVE (NEGATIVE); KETONE, URINE AUTO NEGATIVE (NEGATIVE); LEUKOCYTE ESTERASE, URINE AUTO 3+ (NEGATIVE); MUCUS, URINE SMALL (NEGATIVE); NITRITE, URINE AUTO POSITIVE (NEGATIVE); PROTEIN, URINE AUTO 1+ mg/dL (NEGATIVE); RBC, URINE AUTO 13 /HPF (0-3); SPECIFIC GRAVITY URINE AUTO 1.014 (1.002-1.035); SQUAMOUS EPITHELIAL CELL UR AU 7 /HPF (0-6); UROBILINOGEN, URINE AUTO 0.2 mg/dL (0.0-2.0); WBC, URINE AUTO TNTC /HPF (0-3)
== END ==
PROVIDERS: ATTEND Internal Medicine
DX: R31.0 Gross hematuria (principal)

== ENCOUNTER → 2025-03-26 | Outpatient (REF) ==
[2025-03-26 10:52] LABS: BASO # 0.1 10^3/uL (0.0-0.2); BASO % 1.0 % (0.0-1.0); EOS # 0.2 10^3/uL (0.0-0.5); EOS % 2.6 % (0.0-3.0); LYMPH # 2.2 10^3/uL (1.5-5.0); LYMPH % 30.5 % (24.0-44.0); MONO # 0.6 10^3/uL (0.0-0.8); MONO % 8.0 % (2.0-8.0); NEUTROPHILS # 4.2 10^3/uL (1.5-8.5); NEUTROPHILS % 57.6 % (36.0-66.0); PLATELET COUNT, AUTOMATED 269 10^3/uL (150-450)
[2025-03-26 11:25] LABS: CALCIUM LEVEL 9.4 MG/DL (8.3-10.6); CARBON DIOXIDE LEVEL 21.0 MMOL/L (20-31); CHLORIDE LEVEL 103.0 MMOL/L (98-107); CREATININE FOR GFR 0.75 MG/DL (0.55-1.30); GLOMERULAR FILTRATION RATE 79.0 (>32); POTASSIUM SERUM 4.6 MMOL/L (3.5-5.1); SODIUM LEVEL 142.0 MMOL/L (136-145)
== END ==
PROVIDERS: ATTEND Internal Medicine
DX: R31.9 Hematuria, unspecified (principal)

== ENCOUNTER → 2025-04-16 | Outpatient (REF) | payer MEDICARE, OTHER ==
[~2025-04-16] MED LIST changes: +ACET-1515 PO; -ACET650T15 PO
[2025-04-16 10:08] LABS: PLATELET COUNT, AUTOMATED 306 10^3/uL (150-450)
[2025-04-16 10:41] LABS: CALCIUM LEVEL 9.6 MG/DL (8.3-10.6); CARBON DIOXIDE LEVEL 22.0 MMOL/L (20-31); CHLORIDE LEVEL 102.0 MMOL/L (98-107); CREATININE FOR GFR 0.74 MG/DL (0.55-1.30); GLOMERULAR FILTRATION RATE 80.2 (>32); POTASSIUM SERUM 4.6 MMOL/L (3.5-5.1); SODIUM LEVEL 139.0 MMOL/L (136-145)
== END ==
PROVIDERS: ATTEND Internal Medicine
DX: I10 Essential (primary) hypertension (principal)

== ENCOUNTER → 2025-05-21 | Outpatient (REF) | payer MEDICARE, OTHER ==
[2025-05-21 12:09] LABS: PLATELET COUNT, AUTOMATED 277 10^3/uL (150-450)
[2025-05-21 12:28] LABS: CALCIUM LEVEL 9.5 MG/DL (8.3-10.6); CARBON DIOXIDE LEVEL 26.0 MMOL/L (20-31); CHLORIDE LEVEL 103.0 MMOL/L (98-107); CREATININE FOR GFR 0.67 MG/DL (0.55-1.30); GLOMERULAR FILTRATION RATE 86.7 (>32); POTASSIUM SERUM 4.7 MMOL/L (3.5-5.1); SODIUM LEVEL 139.0 MMOL/L (136-145)
== END ==
PROVIDERS: ATTEND Internal Medicine
DX: I10 Essential (primary) hypertension (principal)

== ENCOUNTER → 2025-06-16 | Outpatient (REF) | payer MEDICARE, OTHER ==
[2025-06-16 11:07] LABS: PLATELET COUNT, AUTOMATED 283 10^3/uL (150-450)
[2025-06-16 11:32] LABS: CALCIUM LEVEL 9.2 MG/DL (8.3-10.6); CARBON DIOXIDE LEVEL 24.0 MMOL/L (20-31); CHLORIDE LEVEL 104.0 MMOL/L (98-107); CREATININE FOR GFR 0.72 MG/DL (0.55-1.30); GLOMERULAR FILTRATION RATE 82.9 (>32); POTASSIUM SERUM 4.4 MMOL/L (3.5-5.1); SODIUM LEVEL 141.0 MMOL/L (136-145)
== END ==
PROVIDERS: ATTEND Internal Medicine
DX: I10 Essential (primary) hypertension (principal)

== ENCOUNTER → 2025-07-04 | Outpatient (CLI) | payer MEDICARE, OTHER | LOC: M WHC 10:26 | PROVIDERS: ATTEND Physician Assistant | DX: Z12.31 Encounter for screening mammogram for malignant neoplasm of breast (principal) ==

== ENCOUNTER → 2025-07-14 | Outpatient (REF) | payer MEDICARE, OTHER ==
[2025-07-14 12:38] LABS: PLATELET COUNT, AUTOMATED 310 10^3/uL (150-450)
[2025-07-14 13:15] LABS: VALPROIC ACID (DEPAKOTE) 25.7 UG/ML (50.0-100.0)
[2025-07-14 13:18] LABS: CALCIUM LEVEL 9.3 MG/DL (8.3-10.6); CARBON DIOXIDE LEVEL 21.0 MMOL/L (20-31); CHLORIDE LEVEL 104.0 MMOL/L (98-107); CREATININE FOR GFR 0.71 MG/DL (0.55-1.30); GLOMERULAR FILTRATION RATE 84.3 (>32); POTASSIUM SERUM 4.5 MMOL/L (3.5-5.1); SODIUM LEVEL 139.0 MMOL/L (136-145)
== END ==
PROVIDERS: ATTEND Internal Medicine
DX: I10 Essential (primary) hypertension (principal); E03.9 Hypothyroidism, unspecified; F03.90 Unspecified dementia, unspecified severity, without behavioral disturbance, psychotic disturbance, mood disturbance, and anxiety; Z79.899 Other long term (current) drug therapy

== ENCOUNTER → 2025-08-11 | Outpatient (REF) | payer MEDICARE, OTHER ==
[2025-08-11 12:48] LABS: PLATELET COUNT, AUTOMATED 254 10^3/uL (150-450)
[2025-08-11 13:27] LABS: CALCIUM LEVEL 9.1 MG/DL (8.3-10.6); CARBON DIOXIDE LEVEL 24.0 MMOL/L (20-31); CHLORIDE LEVEL 104.0 MMOL/L (98-107); CREATININE FOR GFR 0.76 MG/DL (0.55-1.30); GLOMERULAR FILTRATION RATE 77.7 (>32); POTASSIUM SERUM 4.8 MMOL/L (3.5-5.1); SODIUM LEVEL 143.0 MMOL/L (136-145)
== END ==
PROVIDERS: ATTEND Internal Medicine
DX: I10 Essential (primary) hypertension (principal)